=== PATIENT | male | born 1960 | race Caucasian/White ===

== ENCOUNTER 2016-07-12 15:30 | Inpatient (IN) | payer OTHER ==
[~2016-07-12] VITALS: Ht 177.8 cm; Wt 67.5 kg
[2016-07-12] MEDS ORDERED: ALBUT/IPRATROP 3MG/0.5MG NEB 3 ML VIAL INH STA (15:46)
[2016-07-12] MEDS ORDERED: SODIUM CHLORIDE 0.9% 1000ML 1,000 ML IV ONE (15:46)
--- NOTE | 2016-07-12 16:02 | EMERGENCY ROOM VISIT NOTE ---
History Report prepared by Duy: Nila Leger Under the Supervision of: Dr. Aime Felder D.O. First contact with patient: 15:37 Chief Complaint: SHORTNESS OF BREATH Stated Complaint: SOB History of Present Illness The patient is a 56 year old male who presents to the Emergency Room with complaints of worsening SOB starting couple weeks ago. His SOB has worsened this week. He states that he feels healthy, but has difficulty breathing all the way in or out. He has never experienced this before. He reports spasms in his chest and SOB when he lays back or walks. He has a cough which is productive at times. He denies any hemoptysis. He denies any history of smoking. He denies any history of PE, DVT, or TB. He has a history of diabetes. Pt denies any previous surgeries. Source of History: patient Onset: couple weeks ago Position: other (global) Quality: other (SOB) Timing: worsening Associated Symptoms: + chest pain, + cough Note: Pt denies hemoptysis. Review of Systems See HPI for pertinent positives & negatives. A total of 10 systems reviewed and were otherwise negative. Past Medical & Surgical Medical Problems: (1) CHF (congestive heart failure) (2) Diabetes Family History No pertinent family history stated. 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) Current/Historical Medications Scheduled Acetaminophen Tab (Tylenol), 650 MG PO TID Diphenhydramine Hcl (Sleep) (Diphenhydramine Hcl), 1 TAB PO HS Doxepin (Sinequan), 50 MG PO HS Glipizide (Glucotrol), 5 MG PO BID Metformin Hcl (Glucophage), 1,000 MG PO BID Multivitamins/Minerals (Mvi With Minerals), 1 TAB PO DAILY Polyethylene Glycol 3350 (Miralax), 1 TBS PO BID Senna (Senokot), 2 TAB PO BID Spironolactone (Aldactone), 2 TABS PO BID Vitamin E (E-400), 400 UNITS PO DAILY Allergies Coded Allergies: No Known Allergies (Unverified , 07/12/16) Physical Exam Vital Signs Date Time Temp Pulse Resp B/P Pulse Ox O2 Delivery O2 Flow Rate FiO2 07/12/16 20:01 121/83 07/12/16 19:45 128 25 07/12/16 19:31 135/96 07/12/16 19:15 126 21 07/12/16 19:01 131/83 07/12/16 18:45 129 22 07/12/16 18:40 129 31 07/12/16 18:31 152/101 07/12/16 18:10 128 29 07/12/16 18:01 116/66 07/12/16 17:40 129 26 07/12/16 17:35 131 23 122/78 94 07/12/16 17:30 133 33 07/12/16 17:25 131 29 07/12/16 17:20 129 30 07/12/16 17:15 129 30 07/12/16 17:10 138 37 07/12/16 17:05 130 31 07/12/16 17:00 128 35 07/12/16 16:55 124 18 07/12/16 16:51 126 07/12/16 16:50 126 26 07/12/16 16:31 139/94 07/12/16 15:46 92 Room Air 07/12/16 15:46 93 Room Air 07/12/16 15:41 36.8 128 20 127/97 92 Room Air Physical Exam GENERAL: Patient is awake, alert, and in no acute distress. Patient is resting comfortably and showing no signs of anxiety EYES: The conjunctivae are clear. The pupils are round and reactive. EARS, NOSE, MOUTH AND THROAT: The nose is without any evidence of any deformity. Mucous membranes are moist tongue is midline NECK: The neck is nontender and supple. RESPIRATORY: Diminished at the right base, rales noted at the right base. Mild tachypnea appreciated, no conversational dyspnea noted. CARDIOVASCULAR: Tachycardic rate, but regular rhythm, no definite murmurs noted to auscultation. GASTROINTESTINAL: The abdomen is soft. Bowel sounds are present in all quadrants. Abdomen is nontender MUSCULOSKELETAL/EXTREMITIES: There is no evidence of gross deformity full range of motion is noted in the hips and shoulders SKIN: There is no obvious evidence of any rash. There are no petechiae, pallor or cyanosis noted. NEUROLOGIC: Patient is awake alert and oriented x3 Medical Decision & Procedures ER Provider Diagnostic Interpretation: X-ray results as stated below per interpretation by me and the radiologist. CHEST ONE VIEW PORTABLE CLINICAL HISTORY: Sepsis. Shortness of breath. COMPARISON STUDY: No previous studies for comparison. FINDINGS: There is no pneumothorax. There are small bilateral pleural effusions with associated bibasilar opacities. There is pulmonary vascular congestion with interstitial thickening consistent with pulmonary edema. Moderate cardiomegaly is noted. IMPRESSION: Cardiomegaly with pulmonary edema with small bilateral pleural effusions and bibasilar opacities which likely reflect atelectasis. Electronically signed by: Ash Robbins M.D. 07/12/2016 4:58 PM Dictated Date/Time: 07/12/2016 4:57 PM Laboratory Results 07/12/16 16:45 Red Blood Count 5.91, Mean Corpuscular Volume 78.3, Mean Corpuscular Hemoglobin 26.1, Mean Corpuscular Hemoglobin Concent 33.3, Mean Platelet Volume 10.7 07/12/16 16:45 Test 07/12/16 00:00 07/12/16 16:45 07/12/16 18:45 Urine Color ORANGE Urine Appearance TURBID (CLEAR) Urine pH 5.5 (4.5-7.5) Urine Specific [place] 1.008 (1.000-1.030) Urine Protein NEG (NEG) Urine Glucose (UA) 2+ (NEG) Urine Ketones NEG (NEG) Urine Occult Blood 3+ (NEG) Urine Nitrite NEG (NEG) Urine Bilirubin NEG (NEG) Urine Urobilinogen NEG (NEG) Urine Leukocyte Esterase NEG (NEG) Urine WBC (Auto) /hpf (0-5) Urine RBC (Auto) /hpf (0-4) Urine Hyaline Casts (Auto) /lpf (0-5) Urine Epithelial Cells (Auto) /lpf (0-5) Urine Bacteria (Auto) (NEG) Urine RBC 5-10 /hpf (0-4) Urine WBC 5-10 /hpf (0-5) Urine Epithelial Cells 5-10 /lpf (0-5) Urine Bacteria NEG (NEG) Urine Yeast (Auto) (NONE PRSENT) White Blood Count 45.40 K/uL (4.8-10.8) Red Blood Count 5.91 M/uL (4.7-6.1) Hemoglobin 15.4 g/dL (14.0-18.0) Hematocrit 46.3 % (42-52) Mean Corpuscular Volume 78.3 fL (80-100) Mean Corpuscular Hemoglobin 26.1 pg (25-34) Mean Corpuscular Hemoglobin Concent 33.3 g/dl (32-36) Platelet Count 212 K/uL (130-400) Mean Platelet Volume 10.7 fL (7.4-10.4) RDW Standard Deviation 38.3 fL (36.4-46.3) RDW Coefficient of Variation 13.7 % (11.5-14.5) Neutrophils % (Manual) 8.5 % Lymphocytes % (Manual) 89.7 % Monocytes % (Manual) 0.9 % Basophils % (Manual) 0.9 % (0-2) Neutrophils # (Manual) 3.86 K/uL (1.4-6.5) Total Absolute Neutrophils 3.86 K/uL (1.4-6.5) Lymphocytes # (Manual) 40.72 K/uL (1.2-3.4) Total Absolute Lymphocytes 40.72 K/uL (1.2-3.4) Monocytes # (Manual) 0.41 K/uL (0.11-0.59) Basophils # (Manual) 0.41 K/uL (0-0.2) Smudge Cells PRESENT Erythrocyte Sedimentation Rate 2 mm/hr (0-14) Prothrombin Time 11.5 SECONDS (9.0-12.0) Prothromb Time International Ratio 1.1 (0.9-1.1) Activated Partial Thromboplast Time 28.8 SECONDS (21.0-31.0) Partial Thromboplastin Ratio 1.1 Venous Blood pH 7.44 (7.36-7.41) Venous Blood Partial Pressure CO2 36 mmHg (38.0-50.0) Venous Blood Partial Pressure O2 51 mmHg Venous Blood HCO3 24 meq/L Venous Blood Oxygen Saturation 85.4 % Venous Blood Base Excess 0.4 mmol/L Anion Gap 9.0 mmol/L (3-11) Est Creatinine Clear Calc Drug Dose 99.0 ml/min Estimated GFR () 111.9 Estimated GFR (Non- 96.5 BUN/Creatinine Ratio 8.5 (10-20) Calcium Level 8.0 mg/dl (8.5-10.1) Magnesium Level 1.8 mg/dl (1.8-2.4) Total Bilirubin 1.2 mg/dl (0.2-1) Aspartate Amino Transf (AST/SGOT) 22 U/L (15-37) Alanine Aminotransferase (ALT/SGPT) 26 U/L (12-78) Alkaline Phosphatase 87 U/L (45-117) Total Creatine Kinase 51 U/L (39-308) Creatine Kinase MB 1.7 ng/ml (0.5-3.6) Creatine Kinase MB Ratio 3.3 (0-3.0) C-Reactive Protein < 0.29 mg/dl (0-0.29) Pro-B-Type Natriuretic Peptide 2051 pg/ml (0-900) Total Protein 6.1 gm/dl (6.4-8.2) Albumin 3.3 gm/dl (3.4-5.0) Globulin 2.8 gm/dl (2.5-4.0) Albumin/Globulin Ratio 1.2 (0.9-2) Lactic Acid Level 2.6 mmol/L (0.4-2.0) Laboratory results per my review. Medications Administered Medications (Trade) Dose Ordered Sig/Jessica Route Start Time Stop Time Status Last Admin Dose Admin Sodium Chloride (Nss 1000ml) 1,000 ml @ 999 mls/hr Q1H1M ONCE IV 07/12/16 15:46 07/12/16 17:13 DC 07/12/16 15:46 999 MLS/HR Albuterol/ Ipratropium (Duoneb) 3 ml NOW STAT INH 07/12/16 15:46 07/12/16 15:47 DC 07/12/16 15:46 3 ML Furosemide (Lasix Inj) 40 mg NOW STAT IV 07/12/16 18:12 07/12/16 18:13 DC 07/12/16 18:42 40 MG ECG Indication: SOB/dyspnea Rate (beats per minute): 131 Rhythm: sinus tachycardia Findings: no ectopy, other (diffuse ST segment abnormality noted) Comparison ECG Date: no prior available ED Course 1543: The patient was evaluated in room C7. A complete history and physical examination were performed. 1546: Duoneb 3 ml INH, NSS 1000 ml @ 999 mls/hr IV. 181: Furosemide 40 mg IV. 8: Upon reevaluation, the patient is resting comfortably. I discussed results and treatment plan with him. He verbalizes agreement and understanding. The patient will be evaluated for further management and care. 1917: I discussed the patient's case with Dr. Cai, [facility] [place]. The patient will be evaluated for further management. Medical Decision Prior records/ancillary studies reviewed. Triage Nursing notes reviewed. The patient's history was concerning for respiratory difficulties. Differential diagnosis: Etiologies such as infections, reactive airway disease, pneumonia, pneumothorax , COPD, CHF, cardiac ischemia, pulmonary embolism, musculoskeletal, gastrointestinal, as well as others were entertained. The patient is a 56-year-old male who presented to the emergency department from the senior care for an evaluation of cough orthopnea and shortness of breath. The patient's EKG was abnormal and he was found have signs of pulmonary edema on chest x-ray as well as laboratory studies. I discussed patient's laboratory and radiographic studies with him. Initially I thought his presentation was consistent with pneumonia and he was treated with a small fluid bolus. He was then treated with Lasix. I discussed his case with the on-call [facility] hospitalist group. They have agreed to evaluate the patient in the emergency department for further management and disposition. Consults Time Called: 1909 Consulting Physician: Dr. Cai [facility] [place] medicine Returned Call: 1917 I discussed the patient's case with him. The patient will be evaluated for further management. Impression Primary Impression: Pulmonary edema Additional Impressions: SOB (shortness of breath) Orthopnea Scribe Attestation The scribe's documentation has been prepared under my direction and personally reviewed by me in its entirety. I confirm that the note above accurately reflects all work, treatment, procedures, and medical decision making performed by me. Departure Information Dispostion Being Evaluated By Hospitalist Patient Instructions My [facility] Problem Qualifiers Primary Impression: Pulmonary edema Chronicity: acute Qualified Codes: J81.0 - Acute pulmonary edema
[2016-07-12] MEDS ORDERED: ACET325T96 PO (16:19)
[2016-07-12] MEDS ORDERED: SENN-61 PO (16:19)
[2016-07-12] MEDS ORDERED: DOXE50CA3 PO (16:19)
[2016-07-12] MEDS ORDERED: DIPH50TA10 PO (16:19)
[2016-07-12] MEDS ORDERED: METF-384 PO (16:19)
[2016-07-12] MEDS ORDERED: GLIP5TAB3 PO (16:19)
[2016-07-12] MEDS ORDERED: POLY335019 PO (16:19)
[2016-07-12] MEDS ORDERED: MULTTAB PO (16:19)
[2016-07-12] MEDS ORDERED: VITACAP37 PO (16:19)
[2016-07-12] MEDS ORDERED: SPIR25TA PO (16:19)
--- NOTE | 2016-07-12 16:59 | DIAGNOSTIC IMAGING REPORT ---
CHEST ONE VIEW PORTABLE CLINICAL HISTORY: Sepsis. Shortness of breath. COMPARISON STUDY: No previous studies for comparison. FINDINGS: There is no pneumothorax. There are small bilateral pleural effusions with associated bibasilar opacities. There is pulmonary vascular congestion with interstitial thickening consistent with pulmonary edema. Moderate cardiomegaly is noted. IMPRESSION: Cardiomegaly with pulmonary edema with small bilateral pleural effusions and bibasilar opacities which likely reflect atelectasis. Electronically signed by: Ash Robbins M.D. 07/12/2016 4:58 PM Dictated Date/Time: 07/12/2016 4:57 PM
[2016-07-12 17:02] LABS: VEN BLD GAS O2 SATURATION 85.4 %; VEN BLOOD GAS BASE EXCESS 0.4 mmol/L; VENOUS BLOOD GAS PCO2 36 mmHg (38.0-50.0); VENOUS BLOOD GAS PO2 51 mmHg
[2016-07-12 17:13] LABS: INR 1.1 (0.9-1.1); PARTIAL THROMBOPLASTIN RATIO 1.1; PROTHROMBIN TIME (PATIENT) 11.5 SECONDS (9.0-12.0)
[2016-07-12 17:28] LABS: ALT/SGPT 26 U/L (12-78); AST/SGOT 22 U/L (15-37); BLOOD UREA NITROGEN 7 mg/dl (7-18); BUN/CREATININE RATIO 8.5 (10-20); CARBON DIOXIDE 22 mmol/L (21-32); CHLORIDE 103 mmol/L (98-107); CREATININE 0.84 mg/dl (0.60-1.40); GLUCOSE 209 mg/dl (70-99); MAGNESIUM 1.8 mg/dl (1.8-2.4); POTASSIUM 4.8 mmol/L (3.5-5.1); SODIUM 134 mmol/L (136-145)
[2016-07-12 17:30] LABS: ALB/GLOB RATIO 1.2 (0.9-2); ALKALINE PHOSPHATASE 87 U/L (45-117); C-REACTIVE PROTEIN < 0.29 mg/dl (0-0.29); CKMB/CK RATIO 3.3 (0-3.0)
[2016-07-12 17:32] LABS: HEMATOCRIT 46.3 % (42-52); MEAN CELL VOLUME 78.3 fL (80-100); MEAN CORPUSCULAR HEMOGLOBIN 26.1 pg (25-34); MEAN CORPUSCULAR HGB CONC 33.3 g/dl (32-36); MEAN PLATELET VOLUME 10.7 fL (7.4-10.4); PLATELET COUNT 212 K/uL (130-400); RED BLOOD COUNT 5.91 M/uL (4.7-6.1)
[2016-07-12 18:09] LABS: BASO ABS # 0.41 K/uL (0-0.2); BASOPHIL % 0.9 % (0-2); LYMPH ABS # 40.72 K/uL (1.2-3.4); LYMPHOCYTE % 89.7 %; NEUTROPHILS % 8.5 %; SMUDGE CELLS PRESENT
[2016-07-12] MEDS ORDERED: FUROSEMIDE 40 MG/4 ML VIAL IV STA (18:12)
[2016-07-12 19:39] LABS: URINE APPEARANCE TURBID (CLEAR); URINE BILIRUBIN NEG (NEG); URINE COLOR ORANGE; URINE NITRITE NEG (NEG); URINE PH 5.5 (4.5-7.5); URINE SPECIFIC GRAVITY 1.008 (1.000-1.030); UROBILINOGEN NEG (NEG); ZZUR CULT IF INDIC CLEAN CATCH YES
[2016-07-12 19:53] LABS: MANUAL MICROSCOPIC REQUIRED? YES; REVIEW REQ? NO
--- NOTE | 2016-07-12 20:04 | History and Physical ---
History & Physical Date & Time of Service: July 12, 2016 at 19:30 Chief Complaint: SOB Primary Care Physician: Katie SPEAR History of Present Illness Source: patient 56 y/o M Hx HTN, DM, likely chronic leukemia. Presents from the local [facility] with progressive SOB and cough. States that he can barely walk a few paces without significant SOB. He is uncomfortable lying flat. He denies CP, N/V, fevers. Initial imaging and labs are consistent with new onset CHF. He denies a previous history of cardiovascular disease however it is noted that he takes daily Aldactone. 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) Allergies Coded Allergies: No Known Allergies (Unverified , 07/12/16) Home Medications Scheduled Acetaminophen Tab (Tylenol), 650 MG PO TID Diphenhydramine Hcl (Sleep) (Diphenhydramine Hcl), 1 TAB PO HS Doxepin (Sinequan), 50 MG PO HS Glipizide (Glucotrol), 5 MG PO BID Metformin Hcl (Glucophage), 1,000 MG PO BID Multivitamins/Minerals (Mvi With Minerals), 1 TAB PO DAILY Polyethylene Glycol 3350 (Miralax), 1 TBS PO BID Senna (Senokot), 2 TAB PO BID Spironolactone (Aldactone), 2 TABS PO BID Vitamin E (E-400), 400 UNITS PO DAILY Review of Systems Constitutional: No chills, No fever, No sweats Eyes: No eye pain, No worsening of vision ENT: No hearing loss, No nasal symptoms Respiratory: + cough, + dyspnea at rest, + dyspnea on exertion, + shortness of breath, + sputum, No wheezing Cardiovascular: + orthopnea, No chest pain, No claudication, No edema Abdomen: No nausea, No pain, No vomiting Musculoskeletal: No joint pain, No muscle pain Genitourinary - Male: No dysuria, No hematuria, No urinary frequency Neurologic: + weakness, No memory loss, No paralysis Psychiatric: No depression symptoms Endocrine: + fatigue Hematologic / Lymphatic: No abnormal bleeding/bruising Integumentary: No rash Allergic / Immunologic: No environmental allergies Physical Exam Vital Signs Date Time Temp Pulse Resp B/P Pulse Ox O2 Delivery O2 Flow Rate FiO2 07/12/16 18:40 129 31 07/12/16 18:31 152/101 07/12/16 18:10 128 29 07/12/16 18:01 116/66 07/12/16 17:40 129 26 07/12/16 17:35 131 23 122/78 94 07/12/16 17:30 133 33 07/12/16 17:25 131 29 07/12/16 17:20 129 30 07/12/16 17:15 129 30 07/12/16 17:10 138 37 07/12/16 17:05 130 31 07/12/16 17:00 128 35 07/12/16 16:55 124 18 07/12/16 16:51 126 07/12/16 16:50 126 26 07/12/16 16:31 139/94 07/12/16 15:46 92 Room Air 07/12/16 15:46 93 Room Air 07/12/16 15:41 36.8 128 20 127/97 92 Room Air General Appearance: WD/WN, no apparent distress Head: normocephalic Eyes: normal inspection ENT: normal ENT inspection, pharynx normal Neck: supple, no JVD Respiratory/Chest: chest non-tender, lungs clear, normal breath sounds Cardiovascular: regular rate, rhythm, no murmur, normal peripheral pulses, + JVD, + gallop/S3 Abdomen/GI: normal bowel sounds, non tender Back: normal inspection, no CVA tenderness Extremities/Musculoskelatal: normal inspection, no calf tenderness, normal capillary refill, no pedal edema, normal range of motion 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 tested, no motor/sensory deficits, alert, oriented x 3 Skin: normal color, warm/dry, no rash Diagnostics Laboratory Results Results Past 24 Hours Test 07/12/16 00:00 07/12/16 16:45 07/12/16 18:45 Range/Units White Blood Count 45.40 4.8-10.8 K/uL Red Blood Count 5.91 4.7-6.1 M/uL Hemoglobin 15.4 14.0-18.0 g/dL Hematocrit 46.3 42-52 % Mean Corpuscular Volume 78.3 80-100 fL Mean Corpuscular Hemoglobin 26.1 25-34 pg Mean Corpuscular Hemoglobin Concent 33.3 32-36 g/dl Platelet Count 212 130-400 K/uL Mean Platelet Volume 10.7 7.4-10.4 fL RDW Standard Deviation 38.3 36.4-46.3 fL RDW Coefficient of Variation 13.7 11.5-14.5 % Neutrophils % (Manual) 8.5 % Lymphocytes % (Manual) 89.7 % Monocytes % (Manual) 0.9 % Basophils % (Manual) 0.9 0-2 % Neutrophils # (Manual) 3.86 1.4-6.5 K/uL Total Absolute Neutrophils 3.86 1.4-6.5 K/uL Lymphocytes # (Manual) 40.72 1.2-3.4 K/uL Total Absolute Lymphocytes 40.72 1.2-3.4 K/uL Monocytes # (Manual) 0.41 0.11-0.59 K/uL Basophils # (Manual) 0.41 0-0.2 K/uL Smudge Cells PRESENT Erythrocyte Sedimentation Rate 2 0-14 mm/hr Prothrombin Time 11.5 9.0-12.0 SECONDS Prothromb Time International Ratio 1.1 0.9-1.1 Activated Partial Thromboplast Time 28.8 21.0-31.0 SECONDS Partial Thromboplastin Ratio 1.1 Venous Blood pH 7.44 7.36-7.41 Venous Blood Partial Pressure CO2 36 38.0-50.0 mmHg Venous Blood Partial Pressure O2 51 mmHg Venous Blood HCO3 24 meq/L Venous Blood Oxygen Saturation 85.4 % Venous Blood Base Excess 0.4 mmol/L Sodium Level 134 136-145 mmol/L Potassium Level 4.8 3.5-5.1 mmol/L Chloride Level 103 98-107 mmol/L Carbon Dioxide Level 22 21-32 mmol/L Anion Gap 9.0 3-11 mmol/L Blood Urea Nitrogen 7 7-18 mg/dl Creatinine 0.84 0.60-1.40 mg/dl Est Creatinine Clear Calc Drug Dose 99.0 ml/min Estimated GFR () 111.9 Estimated GFR (Non- 96.5 BUN/Creatinine Ratio 8.5 10-20 Random Glucose 209 70-99 mg/dl Calcium Level 8.0 8.5-10.1 mg/dl Magnesium Level 1.8 1.8-2.4 mg/dl Total Bilirubin 1.2 0.2-1 mg/dl Aspartate Amino Transf (AST/SGOT) 22 15-37 U/L Alanine Aminotransferase (ALT/SGPT) 26 12-78 U/L Alkaline Phosphatase 87 45-117 U/L Total Creatine Kinase 51 39-308 U/L Creatine Kinase MB 1.7 0.5-3.6 ng/ml Creatine Kinase MB Ratio 3.3 0-3.0 Troponin I 0.020 0-0.045 ng/ml C-Reactive Protein < 0.29 0-0.29 mg/dl Pro-B-Type Natriuretic Peptide 2051 0-900 pg/ml Total Protein 6.1 6.4-8.2 gm/dl Albumin 3.3 3.4-5.0 gm/dl Globulin 2.8 2.5-4.0 gm/dl Albumin/Globulin Ratio 1.2 0.9-2 Microbiology Results 07/12/16 Blood Culture, Received Pending 07/12/16 Blood Culture, Received Pending Diagnostic Radiology There is no pneumothorax. There are small bilateral pleural effusions with associated bibasilar opacities. There is pulmonary vascular congestion with interstitial thickening consistent with pulmonary edema. Moderate cardiomegaly is noted. 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 Presents from the local [facility] with progressive SOB and cough. States that he can barely walk a few paces without significant SOB. He is uncomfortable lying flat. He denies CP, N/V, fevers. Initial imaging and labs are consistent with new onset CHF. He denies a previous history of cardiovascular disease however it is noted that he takes daily Aldactone. 1) CHF - new onset - pt will be diuresed - daily weights, Is/Os - cardiology consulted We will rule out an acte event with serial enzymes an have started the pt on a Statin and ASA - will start a low dose B rafael in AM 2) Leukocytosis - [facility] records do ian specify any detail reg his high count - likely CML or CLL - if stable can w/u as outpt 3) DM - placed on SS 4) Psychotic disorder - will remain on home meds Ful code - Heparin prophylaxis Total time for this admit including review of labs, meds, EKG - discussion with pt and ER attending - 38 min Level of Care Telemetry Resuscitation Status FULL RESUSCITATION VTE Prophylaxis Given or contraindicated: Unfractionated heparin SQ
[2016-07-12 20:14] LABS: URINE BACTERIA NEG (NEG)
[2016-07-12] MEDS ORDERED: ALUMINUM/MAGNESIUM/SIMETH (MAALOX MAX) 30 ML UDC PO PRN (20:15)
[2016-07-12] MEDS ORDERED: MoRPHine SULFATE 2 MG/ML CARP IV PRN (20:15)
[2016-07-12] MEDS ORDERED: MAGNESIUM HYDROXIDE SUSP 30 ML UDC PO PRN (20:15)
[2016-07-12] MEDS ORDERED: NITROGLYCERIN 0.4 MG SL PER TAB CHARGE SL PRN (20:15)
[2016-07-12] MEDS ORDERED: ONDANSETRON INJ 2 MG/ML 2 ML VIAL IV PRN (20:15)
[2016-07-12] MEDS ORDERED: POLYETHYLENE (MIRALAX) 17 GM PACK PO PRN (20:15)
[2016-07-12] MEDS ORDERED: ACETAMINOPHEN 325 MG TAB PO PRN (20:15)
[2016-07-12 21:36] VITALS: BP 135/93; PULSE 128; TEMP 36.8; O2SAT 96; BMI 21.9
[2016-07-12] MEDS ORDERED: DEXTROSE 50% 50 ML SYR IV PRN (21:45)
[2016-07-12] MEDS ORDERED: GLUCOSE 40% GEL 15 GM TUBE PO PRN (21:45)
[2016-07-12] MEDS ORDERED: GLUCOSE 10 TABS/TUBE PO PRN (21:45)
[2016-07-12] MEDS ORDERED: GLUCAGON FOR INJ 1 MG VIAL SQ PRN (21:45)
[2016-07-12] MEDS: SPIRONOLACTONE 25 MG TAB PO SCH (22:38)
[2016-07-12] MEDS: SENNA 8.6 MG TAB PO SCH (22:39)
[2016-07-12] MEDS: POTASSIUM CHLORIDE 20 MEQ TABCR PO SCH (22:39)
[2016-07-12] MEDS: NITROGLYCERIN OINT 2% 1GM PACKET EXT SCH (22:40)
[2016-07-12] MEDS: FUROSEMIDE INJ 40 MG in SYRINGE 0 ML IV SCH (22:41)
[2016-07-12] MEDS: POLYETHYLENE (MIRALAX) 17 GM PACK PO SCH (22:42)
[2016-07-12] MEDS: INSULIN ASPART 100 UNITS/ML 3 ML PEN SC SCH (22:46)
[2016-07-12] MEDS: HEPARIN SOD 5000 UNIT/0.5 ML CARP SQ SCH (22:47)
[2016-07-12 23:42] VITALS: BP 143/93; PULSE 122; TEMP 36.9; O2SAT 96
[2016-07-12] MEDS ORDERED: LORAZEPAM 1 MG TAB PO STA (23:54)
[2016-07-13] VITALS (8 sets, daily range): BP systolic 95–107; BP diastolic 58–73; PULSE 101–114; TEMP 36.6–37; O2SAT 89–97
[2016-07-13] MEDS: DOXEPIN HCL 50 MG CAP PO SCH ×2 (00:13→21:05)
[2016-07-13] MEDS: METOPROLOL TARTRATE 25 MG TAB PO SCH ×3 (00:52→21:06)
[2016-07-13] MEDS: NITROGLYCERIN OINT 2% 1GM PACKET EXT SCH ×4 (04:17→21:07)
[2016-07-13] MEDS: HEPARIN SOD 5000 UNIT/0.5 ML CARP SQ SCH ×3 (05:34→21:15)
[2016-07-13 07:16] LABS: BUN/CREATININE RATIO 13.6 (10-20); CALCIUM 8.5 mg/dl (8.5-10.1); CHOLESTEROL/HDL RATIO 2.6; CREATININE 0.84 mg/dl (0.60-1.40); MAGNESIUM 2.1 mg/dl (1.8-2.4); POTASSIUM 3.8 mmol/L (3.5-5.1)
[2016-07-13] MEDS: FUROSEMIDE INJ 40 MG in SYRINGE 0 ML IV SCH ×2 (08:54→17:03)
[2016-07-13] MEDS: SPIRONOLACTONE 25 MG TAB PO SCH ×2 (08:54→21:05)
[2016-07-13] MEDS: POTASSIUM CHLORIDE 20 MEQ TABCR PO SCH ×2 (08:54→21:05)
[2016-07-13] MEDS: ATORVASTATIN 20 MG TAB PO SCH (08:55)
[2016-07-13] MEDS: ASPIRIN 81 MG ECTAB PO SCH ×2 (08:55→09:56)
[2016-07-13] MEDS: POLYETHYLENE (MIRALAX) 17 GM PACK PO SCH ×2 (08:55→21:07)
[2016-07-13] MEDS: SENNA 8.6 MG TAB PO SCH ×2 (08:55→21:05)
[2016-07-13] MEDS: INSULIN ASPART 100 UNITS/ML 3 ML PEN SC SCH ×4 (08:57→21:14)
--- NOTE | 2016-07-13 11:11 | Hospitalist Progress Note ---
Hospitalist Progress Note Date of Service July 13, 2016. (Zohaib Mckinney, ZOFIA) Subjective Pt evaluation today including: conversation w/ patient, physical exam, lab review, review of studies, review of inpatient medication list Pain: c/o occassional abdominal pain, not associated with food intake PO Intake: tolerating PO Voiding: no voiding problems still feels short of breath no chest pain no nausea/vomiting Constitutional: No chills, No fatigue, No fever, No problem reported, No see HPI, No sweats, No weakness, No weight loss ENT: No dental problems, No hearing loss, No nasal symptoms, No problem reported, No see HPI, No sore throat, No tinnitus, No trouble swallowing, No unusual epistaxis Respiratory: + dyspnea on exertion, + shortness of breath, + wheezing Cardiovascular: No PND, No chest pain, No claudication, No edema, No orthopnea, No palpitations, No problem reported, No see HPI Abdomen: + problem reported (bloating at times) Musculoskeletal: No calf pain, No joint pain, No muscle pain, No problem reported, No see HPI, No swelling Neurologic: No balance problems, No memory loss, No numbness/tingling, No paralysis, No problem reported, No see HPI, No vertigo, No weakness Psychiatric: No anhedonism, No anxiety, No depression symptoms, No insomnia , No problem reported, No see HPI, No substance abuse Heme: No abnormal bleeding/bruising, No clotting problems, No night sweats, No problem reported, No see HPI, No swollen lymph nodes Endo: No excessive thirst, No excessive urination, No fatigue, No problem reported, No see HPI Skin: No bleeding, No color change, No itch, No new/changing skin lesions, No problem reported, No rash, No see HPI (Zohaib Mckinney, ZOFIA) Medications reviewed (Zohaib Mckinney, ZOFIA) Objective Vital Signs Date Time Temp Pulse Resp B/P Pulse Ox O2 Delivery O2 Flow Rate FiO2 07/13/16 04:40 36.7 103 18 95/58 89 Room Air 07/13/16 04:00 96 Room Air 2.0 07/13/16 00:01 96 Room Air 2.0 07/12/16 23:42 36.9 122 18 143/93 96 Room Air 07/12/16 21:36 36.8 128 24 135/93 96 Room Air 07/12/16 20:27 37.0 07/12/16 20:15 127 26 07/12/16 20:01 121/83 07/12/16 19:45 128 25 07/12/16 19:31 135/96 07/12/16 19:15 126 21 07/12/16 19:01 131/83 07/12/16 18:45 129 22 07/12/16 18:40 129 31 07/12/16 18:31 152/101 07/12/16 18:10 128 29 07/12/16 18:01 116/66 07/12/16 17:40 129 26 07/12/16 17:35 131 23 122/78 94 07/12/16 17:30 133 33 07/12/16 17:25 131 29 07/12/16 17:20 129 30 07/12/16 17:15 129 30 07/12/16 17:10 138 37 07/12/16 17:05 130 31 07/12/16 17:00 128 35 07/12/16 16:55 124 18 07/12/16 16:51 126 07/12/16 16:50 126 26 07/12/16 16:31 139/94 07/12/16 15:46 92 Room Air 07/12/16 15:46 93 Room Air 07/12/16 15:41 36.8 128 20 127/97 92 Room Air (Zohaib Mckinney ., [employer]) Physical Exam General Appearance: no apparent distress Eyes: PERRL, sclerae normal ENT: hearing grossly normal, pharynx normal Neck: supple, no JVD Respiratory/Chest: chest non-tender, + wheezing Cardiovascular: regular rate, rhythm, no edema, no JVD, no murmur Abdomen: normal bowel sounds, non tender, soft Extremities: normal range of motion, normal inspection, no pedal edema Neurologic/Psychiatric: alert, oriented x 3 Skin: normal color, warm/dry, no rash (Zohaib Mckinney ., [employer]) Laboratory Results Last 24 Hours Test 07/12/16 16:45 07/12/16 18:45 07/12/16 22:21 07/12/16 23:05 White Blood Count 45.40 K/uL Red Blood Count 5.91 M/uL Hemoglobin 15.4 g/dL Hematocrit 46.3 % Mean Corpuscular Volume 78.3 fL Mean Corpuscular Hemoglobin 26.1 pg Mean Corpuscular Hemoglobin Concent 33.3 g/dl Platelet Count 212 K/uL Mean Platelet Volume 10.7 fL RDW Standard Deviation 38.3 fL RDW Coefficient of Variation 13.7 % Neutrophils % (Manual) 8.5 % Lymphocytes % (Manual) 89.7 % Monocytes % (Manual) 0.9 % Basophils % (Manual) 0.9 % Neutrophils # (Manual) 3.86 K/uL Total Absolute Neutrophils 3.86 K/uL Lymphocytes # (Manual) 40.72 K/uL Total Absolute Lymphocytes 40.72 K/uL Monocytes # (Manual) 0.41 K/uL Basophils # (Manual) 0.41 K/uL Smudge Cells PRESENT Erythrocyte Sedimentation Rate 2 mm/hr Prothrombin Time 11.5 SECONDS Prothromb Time International Ratio 1.1 Activated Partial Thromboplast Time 28.8 SECONDS Partial Thromboplastin Ratio 1.1 Venous Blood pH 7.44 Venous Blood Partial Pressure CO2 36 mmHg Venous Blood Partial Pressure O2 51 mmHg Venous Blood HCO3 24 meq/L Venous Blood Oxygen Saturation 85.4 % Venous Blood Base Excess 0.4 mmol/L Sodium Level 134 mmol/L Potassium Level 4.8 mmol/L Chloride Level 103 mmol/L Carbon Dioxide Level 22 mmol/L Anion Gap 9.0 mmol/L Blood Urea Nitrogen 7 mg/dl Creatinine 0.84 mg/dl Est Creatinine Clear Calc Drug Dose 99.0 ml/min Estimated GFR () 111.9 Estimated GFR (Non- 96.5 BUN/Creatinine Ratio 8.5 Random Glucose 209 mg/dl Calcium Level 8.0 mg/dl Magnesium Level 1.8 mg/dl Total Bilirubin 1.2 mg/dl Aspartate Amino Transf (AST/SGOT) 22 U/L Alanine Aminotransferase (ALT/SGPT) 26 U/L Alkaline Phosphatase 87 U/L Total Creatine Kinase 51 U/L Creatine Kinase MB 1.7 ng/ml Creatine Kinase MB Ratio 3.3 Troponin I 0.020 ng/ml 0.022 ng/ml C-Reactive Protein < 0.29 mg/dl Pro-B-Type Natriuretic Peptide 2051 pg/ml Total Protein 6.1 gm/dl Albumin 3.3 gm/dl Globulin 2.8 gm/dl Albumin/Globulin Ratio 1.2 Lactic Acid Level 2.6 mmol/L Bedside Glucose 195 mg/dl Test 07/13/16 05:05 07/13/16 06:34 Sodium Level 140 mmol/L Potassium Level 3.8 mmol/L Chloride Level 104 mmol/L Carbon Dioxide Level 29 mmol/L Anion Gap 7.0 mmol/L Creatinine 0.84 mg/dl Est Creatinine Clear Calc Drug Dose 92.3 ml/min Estimated GFR () 111.9 Estimated GFR (Non- 96.5 BUN/Creatinine Ratio 13.6 Random Glucose 255 mg/dl Calcium Level 8.5 mg/dl Magnesium Level 2.1 mg/dl Troponin I 0.020 ng/ml Triglycerides Level 89 mg/dl Cholesterol Level 103 mg/dl HDL Cholesterol 39 mg/dl LDL Cholesterol, Calculated 46 mg/dl VLDL Cholesterol, Calculated 18 mg/dl Cholesterol/HDL Ratio 2.6 Bedside Glucose 224 mg/dl (Zohaib Mckinney, ZOFIA) Assessment and Plan 56 y/o Male with history of HTN, DM, likely chronic leukemia. Presents from the local [facility] with progressive SOB and cough. States that he can barely walk a few paces without significant SOB. He is uncomfortable lying flat. He denies CP, N/V, fevers. Initial imaging and labs are consistent with new onset CHF. He denies a previous history of cardiovascular disease however it is noted that he takes daily Aldactone. 1. CHF - new onset - uncertain systolic vs diastolic - obtain ECHO. - Continue IV lasix- aldactone. daily weights, I/O - cardiology consulted - started metoprolol this am - trops normal x 3 - started on Statin and ASA on admission 2. Leukocytosis - Afebrile - WBC over 45k with over 40% lymphocytes - assisted records do not specify any detail reg his high count - likely CML or CLL - can likely w/u as outpt - check WBC in AM 3. DM - placed on SSI 4. Psychotic disorder - will remain on home meds 5. DVT prophylaxis - Heparin 6. Full Code 7. Disposition - likely 2 to 3 more days in hospital then return to [facility]. Continued [facility] stay due to: multiple IV medications needed Discharge planning[facility] (Zohaib Mckinney, ZOFIA) Attending Attestation: Chart reviewed in detail. I agree with the lacy components of ZOFIA Mckinney's documentation. Taye Velez MD (Taye Velez MD)
--- NOTE | 2016-07-13 16:55 | CARDIOLOGY CONSULTATION ---
DATE OF CONSULTATION: 07/13/2016 TIME: 1509 p.m. CONSULTING PHYSICIAN: Dr. Cai. REASON FOR CONSULTATION: CHF. HISTORY OF PRESENT ILLNESS: Mr. Francois is a 56-year-old gentleman with a reported history of leukemia, hypertension, diabetes and psychosis/delusional disorder who presented to [facility] from [facility] with shortness of breath. He states that for the past 2 weeks he has had progressively worsening shortness of breath, more specifically dyspnea with exertion. He can now walk only a few steps before experiencing dyspnea and having to stop. He states that he breathes "purse breathing" to help relieve his symptoms. He has orthopnea and basically could not sleep for the past few nights due to his breathing issues. While he is breathing heavily, he will develop some chest tightness, but otherwise does not have exertional chest tightness. Around the time of his shortness of breath he also noticed coughing episodes, especially while lying down or becoming short of breath. Occasionally, he will develop sethi sputum, but otherwise largely nonproductive. He denies syncope, palpitations, edema, melena, hematochezia, hematuria, or other bleeding. He denies stroke or stroke-like symptoms. He does have intermittent central abdominal pain after eating for the past 6 months or so. He was evaluated and admitted by Dr. Cai in the Emergency Department from the hospitalist service and started on a diuretic therapy in the form of Lasix 40 mg IV b.i.d. He has had urine output and has been negative approximately 3 liters and despite this states that he feels no improvement in his symptoms. REVIEW OF SYSTEMS: As above and otherwise unremarkable. PAST MEDICAL HISTORY: 1. Diabetes. 2. Leukemia and he states that he is followed by hematology every 6 months. He denies ever receiving chemotherapy. 3. Hypertension. 4. Psychosis/delusional disorder. HOME MEDICATIONS: Include metformin 1000 mg p.o. b.i.d., glipizide 5 mg b.i.d., spironolactone 2 tabs b.i.d. which he states was recently discontinued, doxepin 50 mg at bedtime, Benadryl 1 tab p.o. at bedtime, vitamin E. HOSPITAL MEDICATIONS: Include aspirin 81 mg daily, Lipitor 20 mg daily, Lasix 40 mg IV b.i.d., heparin 5000 units subQ q. 8 hours, metoprolol tartrate 25 mg p.o. b.i.d., potassium chloride 20 mEq p.o. b.i.d., spironolactone 50 mg p.o. b.i.d. ALLERGIES: HE STATES THAT HE IS ALLERGIC TO IV CONTRAST. He recalls receiving either Benadryl or epinephrine for the reaction. He does not recall the entire reaction. When asked about a rash, he states perhaps he had one, but is not sure. SOCIAL HISTORY: He has no children. He is originally from the [facility]. He smoked for approximately 2 years, but quit several years ago. No alcohol or drugs. He is currently incarcerated at [facility]. He has been incarcerated since 1998. FAMILY HISTORY: No known premature CAD. PHYSICAL EXAMINATION: VITAL SIGNS: Temperature 36.9 degrees, heart rate 103 beats per minute; however, his heart rate upon presentation was consistently in the 120s, respiration rate 17, blood pressure 97/68 mmHg. Oxygen saturation 96%. I's and O's negative 1.5 liters yesterday, charted as a negative 1.7 liters today. Weight is 68.1 kg. GENERAL: No acute distress. He is alert and oriented. HEENT: Anicteric sclerae. NECK: No appreciable JVD but there is hepatojugular reflux noted. No bruits. Normal carotid upstrokes bilaterally. CARDIAC EXAMINATION: PMI was nonpalpable. There was no ventricular heave. Regular, but tachycardic, normal S1, S2, no audible murmurs. There was an audible S3 gallop. No rubs. LUNGS: Bibasilar rales, left greater than right. There was also some wheezing in the left base. ABDOMEN: Soft, nondistended. There was some central abdominal tenderness, but no rebound tenderness. No palpable mass in that area. No bruits. EXTREMITIES: No cyanosis or edema. 2+ radial pulses bilaterally. 2+ dorsalis pedis pulses bilaterally. No palpable cords. PSYCHIATRIC: Affect appears appropriate. LABORATORY DATA: White blood cell count 45.4, hemoglobin 15.4, platelets 212, ESR 2. Sodium 140, potassium 3.8, BUN 11, creatinine 0.84, magnesium 2.1. Troponin peak 0.022, triglycerides 89, total cholesterol 103, LDL 46, HDL 39. INR 1.1. ECG personally reviewed from 07/12/2016 at 1703, sinus tachycardia 131 beats per minute. Inferior infarct. Anteroseptal infarct. Telemetry personally reviewed. Sinus rhythm. No arrhythmia. His heart rate has trended downward, especially after the initiation of beta-rafael. Echocardiogram performed today. There was a preliminary review of a few select images. A full report to follow after the entire study is available for review. LV systolic function appears to be significantly reduced. ASSESSMENT AND PLAN: 1. Acute systolic congestive heart failure: He does not feel much better despite diuresis. Would continue diuresis and monitor renal function and electrolytes closely. He continues to have orthopnea. Low sodium diet, less than 2000 mg daily. Continue I's and O's and daily weights. 2. Cardiomyopathy: Etiology not certain, however, does have risk factors for ischemic heart disease. Recommend cardiac catheterization when he has improved from a heart failure standpoint and can lay flat more comfortably. This will likely be in several days. This will be further discussed with him. In the meantime, will change metoprolol tartrate to metoprolol succinate. Would not further titrate beta-rafael today given his acute presentation; however, this can be titrated over time. He is currently slightly hypotensive and was just started on beta-blockers but would consider starting ALYSSA inhibitor soon, potentially tomorrow if blood pressure allows. Can continue spironolactone as well. If he is able to receive Entresto from the skilled nursing system, may also be a good option in place of ALYSSA inhibitor, but we will start ALYSSA inhibitor for now. 3. Sinus tachycardia: Likely secondary to reduced left ventricular systolic function/reduced stroke volume. No further titration of beta-rafael today as this is likely his compensating mechanism for reduced stroke volume. We will slowly titrate medications over time. 4. Hypertension: He carries a history of hypertension; however, is not currently hypertensive. Beta-rafael as discussed above. Would like to initiate ALYSSA inhibitor at some point as noted above. 5. Disposition: Cardiology will continue to follow. Highly complex medical issues with further ischemic evaluation recommended as noted above in the form of cardiac catheterization. Primary service, Zohaib Mckinney personally notified of the assessment and plan. Please call with any questions or concerns. Will continue to follow.
--- NOTE | 2016-07-13 17:55 | ECHOCARDIOGRAM REPORT ---
*NOTICE TO RECEIVING REPUBLICAN AGENCY This information is strictly Confidential and protected under [place] law. [place] law prohibits you from making any further disclosure of this information unless further disclosure is expressly permitted by the written consent of the person to whom it pertains or is authorized by law. A general authorization for the release of medical or other information is not sufficient for this purpose. Hospital accepts no responsibility if the information is made available to any other person, INCLUDING THE PATIENT. Interpretation Summary * Name: MOLINA LEMUS [id number] Study Date: 07/13/2016 01:05 PM BP: 95/58 mmHg * Patient Location: 2\S\S237\S\1 HR: 106 * : 1960 (M/d/yyyy) Gender: Male Height: 70 in * Age: 56 yrs Ethnicity: CA Weight: 165 lb * Ordering Physician: Oscar Cai * Referring Physician: Katie SPEAR * Performed By: Eh Kelly RDCS * * Reason For Study: CHF * BSA: 1.9 m2 * -- Conclusions -- * 1. Mildly dilated left ventricle with severely reduced systolic function. EF 25-30%. Global hypokinesis. No left ventricular hypertrophy. * 2. The right ventricular systolic function is mildly reduced. * 3. There is mild to moderate mitral regurgitation. * 4. Pleural effusion. * 5. Tissue Doppler suggests elevated left atrial pressure. * 6. No prior study available for comparison. Procedure Details * A complete two-dimensional transthoracic echocardiogram was performed (2D, M-mode, Doppler and color flow Doppler). * The study was technically adequate. Left Ventricle * Mildly dilated left ventricle with severely reduced systolic function. EF 25-30%. Global hypokinesis. No left ventricular hypertrophy. Right Ventricle * The right ventricle is normal size. * The right ventricular systolic function is mildly reduced. * The right ventricular systolic function is reduced as assessed by tricuspid annular plane systolic excursion (TAPSE) (TAPSE <1.6 cm). Atria * The left atrial size is normal. * Right atrial size is normal. * There is no evidence of atrial septal defect, but resolution does not allow assessment for a patent foramen ovale. Mitral Valve * The mitral valve leaflets appear normal. There is no evidence of stenosis, fluttering, or prolapse. * There is mild to moderate mitral regurgitation. Tricuspid Valve * The tricuspid valve is not well visualized, but is grossly normal. * There is no tricuspid stenosis. * Significant tricuspid regurgitation is absent. Aortic Valve * The aortic valve is normal in structure and function. * The aortic valve is trileaflet. * No hemodynamically significant valvular aortic stenosis. * No aortic regurgitation is present. Pulmonic Valve * The pulmonary valve is inadequately visualized, but the Doppler data is adequate for interpretation. * There is no pulmonic valvular stenosis. * There is no significant pulmonary regurgitation. Great Vessels * The aortic root is normal size. * Blunted pulmonary venous flow pattern. Pericardium/Pleural * There is no pericardial effusion. * Pleural effusion. Great Vessels * Mildly dilated IVC with normal inspiratory collapse. MMode 2D Measurements and Calculations IVSd 1.1 cm IVSs 1.3 cm LVIDd 5.3 cm LVIDs 4.6 cm LVPWd 1.0 cm LVPWs 1.3 cm IVS/LVPW 1.0 FS 13.8 % EDV(Teich) 134.3 ml ESV(Teich) 94.9 ml EF(Teich) 29.3 % EDV(cubed) 147.4 ml ESV(cubed) 94.3 ml EF(cubed) 36.0 % % IVS thick 18.6 % % LVPW thick 21.6 % LV mass(C)d 218.7 grams LV mass(C)dI 113.7 grams/m\S\2 LV mass(C)s 223.2 grams LV mass(C)sI 116.0 grams/m\S\2 SV(Teich) 39.3 ml SI(Teich) 20.5 ml/m\S\2 SV(cubed) 53.1 ml SI(cubed) 27.6 ml/m\S\2 EPSS 1.2 cm Ao root diam 3.1 cm Ao root area 7.4 cm\S\2 ACS 1.8 cm LA dimension 4.5 cm asc Aorta Diam 3.3 cm LA/Ao 1.5 LVAd ap4 30.1 cm\S\2 LVLd ap4 8.1 cm EDV(MOD-sp4) 92.0 ml LVAs ap4 24.4 cm\S\2 LVLs ap4 7.4 cm ESV(MOD-sp4) 64.0 ml EF(MOD-sp4) 30.4 % LVAd ap2 35.7 cm\S\2 LVLd ap2 8.7 cm EDV(MOD-sp2) 122.0 ml EDV(sp2-el) 149.4 ml LVAs ap2 28.5 cm\S\2 LVLs ap2 8.1 cm ESV(MOD-sp2) 85.0 ml ESV(sp2-el) 113.7 ml EF(MOD-sp2) 30.3 % EF(sp2-el) 23.9 % SV(MOD-sp4) 28.0 ml SI(MOD-sp4) 14.6 ml/m\S\2 SV(MOD-sp2) 37.0 ml SI(MOD-sp2) 19.2 ml/m\S\2 SV(sp2-el) 35.7 ml SI(sp2-el) 18.6 ml/m\S\2 Doppler Measurements and Calculations MV E max mary 117.5 cm/sec MV dec time 0.15 sec Ao V2 max 102.4 cm/sec Ao max PG 4.2 mmHg Ao max PG (full) 1.9 mmHg LV V1 max PG 2.3 mmHg LV V1 max 76.2 cm/sec MR max mary 387.0 cm/sec MR max PG 59.9 mmHg MR mean mary 287.0 cm/sec MR mean PG 38.0 mmHg MR VTI 111.0 cm PA V2 max 66.4 cm/sec PA max PG 1.8 mmHg RAP systole 8.0 mmHg
[2016-07-13] MEDS ORDERED: NURSING VERBAL MED ORDER ONE (19:45)
[2016-07-13] MEDS ORDERED: COUGH DROP (SUGAR FREE) LOZ 24 LOZ/1 BOX PO PRN (19:45)
[2016-07-14] VITALS (8 sets, daily range): BP systolic 85–146; BP diastolic 55–77; PULSE 96–107; TEMP 36.4–36.8; O2SAT 90–97
[2016-07-14] MEDS ORDERED: NURSING VERBAL MED ORDER ONE (02:15)
[2016-07-14] MEDS ORDERED: LORAZEPAM 1 MG TAB PO ONE (02:30)
[2016-07-14] MEDS ORDERED: LORAZEPAM 2 MG/ML 1 ML VIAL IV ONE (02:30)
[2016-07-14] MEDS: NITROGLYCERIN OINT 2% 1GM PACKET EXT SCH ×4 (04:52→22:00)
[2016-07-14] MEDS: HEPARIN SOD 5000 UNIT/0.5 ML CARP SQ SCH ×3 (06:03→21:34)
[2016-07-14] MEDS: INSULIN ASPART 100 UNITS/ML 3 ML PEN SC SCH ×4 (07:00→21:33)
[2016-07-14] MEDS: SENNA 8.6 MG TAB PO SCH ×2 (08:23→21:29)
[2016-07-14] MEDS: SPIRONOLACTONE 25 MG TAB PO SCH ×2 (08:23→21:29)
[2016-07-14] MEDS: FUROSEMIDE INJ 40 MG in SYRINGE 0 ML IV SCH ×2 (08:23→17:24)
[2016-07-14] MEDS: ASPIRIN 81 MG ECTAB PO SCH (08:24)
[2016-07-14] MEDS: POTASSIUM CHLORIDE 20 MEQ TABCR PO SCH ×2 (08:24→21:28)
[2016-07-14] MEDS: ATORVASTATIN 20 MG TAB PO SCH (08:24)
[2016-07-14 09:57] LABS: BUN/CREATININE RATIO 20.9 (10-20); CALCIUM 8.8 mg/dl (8.5-10.1); POTASSIUM 4.3 mmol/L (3.5-5.1)
[2016-07-14 10:09] LABS: BETA-HYDROXYBUTYRATE 2.17 mg/dL (0.2-2.81)
[2016-07-14] MEDS ORDERED: LISINOPRIL 5 MG TAB PO ONE (10:15)
[2016-07-14] MEDS: POLYETHYLENE (MIRALAX) 17 GM PACK PO SCH ×2 (10:41→21:31)
[2016-07-14] MEDS: METOPROLOL SUCC 25MG EXT REL TAB PO SCH ×2 (10:41→21:00)
[2016-07-14] MEDS: GUAIFENESIN 600 MG TABCR PO SCH ×2 (10:41→21:30)
--- NOTE | 2016-07-14 10:41 | CARDIOLOGY PROGRESS NOTE ---
DATE: 07/14/2016 TIME: 10:02 a.m. SUBJECTIVE: When I entered the room, he appeared to be breathing much more easily compared to yesterday. When asked specifically about his breathing, however, he began to demonstrate how it is difficult for him to breathe and began coughing with breathing. He states that he has not noted any improvement in his symptoms. His biggest concerns continue to be a coughing medicine, which has been relayed to the primary service. He also inquired about Ativan and left flank pain. He states he has a history of kidney stones. She has noted hematuria since yesterday afternoon. There is blood in the urinal at the bedside, which is quite dark concerning for blood. He denies angina, but does have some intermittent chest pain if labored breathing. He states that he has orthopnea and cannot lay flat. He denies syncope or palpitations. OBJECTIVE: VITAL SIGNS: Temperature 36.8 degrees, heart rate 104 beats per minute, respiratory rate 16, blood pressure 108/77 mmHg, and oxygen saturation 93% on room air. I's and O's negative 1 liter yesterday. Weight 68 kg. GENERAL: No acute distress. He is alert. NECK: No JVD, but there is hepatojugular reflux. CARDIAC EXAM: No ventricular heave. Regular, normal S1 and S2. There is an S3 gallop. No murmurs or rubs. LUNGS: Decreased breath sounds at bilateral bases, otherwise clear. ABDOMEN: Soft and nondistended. There is tenderness in the left flank area. Normoactive bowel sounds. EXTREMITIES: No cyanosis or edema. PSYCHIATRIC: Affect appears appropriate. MEDICATIONS: Include aspirin 81 mg daily, Lipitor 20 mg daily, Lasix 40 mg IV b.i.d., heparin 5000 units subQ q. 8 hours, metoprolol succinate 25 mg p.o. b.i.d., potassium chloride 20 mEq p.o. b.i.d., and spironolactone 50 mg p.o. b.i.d. LABORATORY DATA: Sodium 134, potassium 4.3, BUN is pending, creatinine is 1, and glucose 382. Blood cultures 1 out of 2 growing gram positive cocci from 07/12/2016. Telemetry personally reviewed. Sinus tachycardia; however, overall his heart rate has improved since admission. Echocardiogram on 07/13/2016 reviewed. Mild dilated LV with severely reduced systolic function. EF 25%-30%. Global hypokinesis. Mild to moderate mitral regurgitation. Mildly reduced RV systolic function. Tissue Doppler suggests elevated left atrial pressure. Pleural effusion suggested. ASSESSMENT AND PLAN: 1. Acute systolic congestive heart failure: Still has hepatojugular reflux and tissue Doppler suggests elevated left atrial pressure. Would continue diuretic with approximately 1 liter or more of negative net fluid balance each day. Monitor BUN and creatinine daily to monitor for prerenal signs. Low sodium diet. Daily weights. Strict I's and O's. 2. Cardiomyopathy: Diagnosis was discussed with him in detail. Cardiac catheterization is recommended. Risks and benefits were discussed with him. At this time, he declines invasive measures. We discussed the fact that he is unable yet to lay flat and therefore would plan for this in the next few days once he shows some improvement; however, he states that he prefers medical approach for now. We will initiate other secondary workup with laboratory data. We will initiate ALYSSA inhibitor, lisinopril. Continue beta rafael for now and this can be further titrated in the future as well. 3. Sinus tachycardia: Likely secondary to reduced stroke volume. Continue beta rafael at current dose today. Starting ALYSSA inhibitor. We will likely increase beta rafael later this hospitalization. 4. Hypertension: Blood pressure has not been hypertensive, but for the most part, rather mostly normotensive. Initiating medications as above for his cardiomyopathy and acute systolic congestive heart failure. 5. Mitral regurgitation: Non-severe. Follow over time. 6. Hematuria: Discussed with primary service, Zohaib Mckinney, physician assistant professor of nursing. He plans on further evaluating this. 7. Disposition: Cardiology will continue to follow.
--- NOTE | 2016-07-14 10:44 | DIAGNOSTIC IMAGING REPORT ---
CT OF THE ABDOMEN AND PELVIS WITHOUT CONTRAST, STONE PROTOCOL CLINICAL HISTORY: Left flank pain and hematuria. History of nephrolithiasis. Congestive heart failure. COMPARISON STUDY: None. TECHNIQUE: Helical axial images of the abdomen and pelvis were obtained without IV or oral contrast according to renal stone protocol. FINDINGS: Visualized portions of the lower chest demonstrate moderate bilateral pleural effusions which are partially imaged on since exam. There is subtotal left lower lobe collapse. There is extensive right lower lobe volume loss. Mild pulmonary edema is noted. There is no hydronephrosis. Note is made of a 1.1 cm calculus within the left renal pelvis and a 6 mm calculus within the right kidney is well as several calculi within the lower pole the right kidney. There are no ureteral calculi. Several bilateral renal lesions are suboptimally assessed on this unenhanced exam but measure near water attenuation and may reflect cysts. There are capsular calcifications along the medial aspect of the left kidney which are chronic. Mild splenomegaly is noted. There is a gallstone within the gallbladder. Evaluation of the abdomen and pelvis is suboptimal on this unenhanced exam. Multiple mildly enlarged upper abdominal lymph nodes are noted. A peripancreatic node measures 2.2 x 1.3 cm. There is no biliary or pancreatic ductal dilatation. There is slight nodularity of the liver surface. There may be small abdominal collaterals. The appendix is normal. There is colonic diverticulosis without evidence for acute diverticulitis. There are no suspicious osseous lesions. IMPRESSION: 1. 1.1 cm left renal pelvis calculus and right-sided nephrolithiasis. No ureteral calculi. No hydronephrosis. 2. Moderate bilateral pleural effusions with subtotal left lower lobe collapse and segmental right lower lobe atelectasis. Mild interstitial pulmonary edema. 3. Suspected cirrhosis with mild splenomegaly and small varices. No ascites. 4. Cholelithiasis. 5. Mild abdominal lymphadenopathy, a nonspecific finding. A follow-up CT in 6 months could be performed to ensure stability. Electronically signed by: Ash Robbins M.D. 07/14/2016 10:42 AM Dictated Date/Time: 07/14/2016 10:33 AM
[2016-07-14] MEDS ORDERED: INSULIN ASPART 100 UNITS/ML 3 ML PEN SC SCH (11:00)
[2016-07-14 11:43] LABS: FERRITIN 47.6 ng/ml (8.0-388.0); THYROID STIMULATING HORMONE 1.01 uIu/ml (0.300-4.500)
[2016-07-14] MEDS ORDERED: PHARMACY GLYCEMIC MGMT CONSULT PRN (12:15)
[2016-07-14] MEDS ORDERED: INSULIN GLARGINE SOLOSTAR 100 UNITS/ML 3 ML PEN SC SCH (12:30)
--- NOTE | 2016-07-14 14:24 | Pharmacy Progress Note ---
Glycemic Control Intl Consult Date of Service July 14, 2016. Scope Glycemic Pharmacist consulted by Jackson ARMIJO on 07/14/16 for glycemic control and to write orders per [facility] inpatient glycemic control protocol Objective Weight (Kilograms): 68.000 Accuchecks BSG (last 24hrs): Test 07/13/16 17:05 07/13/16 20:53 07/14/16 06:14 07/14/16 08:50 Bedside Glucose 193 mg/dl (70-99) 216 mg/dl (70-99) 261 mg/dl (70-99) Random Glucose 382 mg/dl (70-99) Test 07/14/16 11:28 Bedside Glucose 251 mg/dl (70-99) Recent Pertinent Medications Outpatient Anti-diabetic Regimen: * Glipizide 5mg PO BID * Metformin 1,000mg PO BID The patient is currently receiving: * Basal insulin: Lantus -- units every -- hours {none ordered} * Correctional Insulin: Novolog Correction per scale ACHS Goal Range: Low 120 mg/dL - High 160 mg/dL Correction Factor: 40 mg/dL/unit * Prandial insulin: Per carb ratio of 1 unit per -- grams CHO consumed {non ordered} * Oral Agents: On hold for admission Assessment & Plan ASSESSMENT: * 56yo T2DM male with unknown degree of outpatient control on 2 oral antidiabetic agents * Ordered A1c per protocol for tomorrow w/ AM labs * Pt is maintained on oral antidiabetic agents as an outpatient * Oral agents are not recommended for inpatient use d/t drug interactions, changing PO intake, and difficulty titrating for acute hyper/hypoglycemia. ADA recommends re-initiating outpatient oral agents 1-2 days prior to discharge if/ when appropriate if they were held on admission. * Oral agents held on admission per provider, but pt was only initiated on SQ [facility] * Pt with sustained hyperglycemia secondary to no basal insulin ordered & no CHO coverage ordered PLAN FOR INPATIENT GLYCEMIC CONTROL: Initiate weight based insulin dosing {with basal, prandial, and correctional components} for insulin caro patient and titrate based on BSG trends. * Hold outpatient oral diabetes medications * Basal insulin * Lantus 20 units SQ daily * Titrate to goal fasting BSG of 100-130mg/dl based on age and co-morbidities * Bolus insulin * NovoLog per scale ACHS or Q6hrs while NPO * Goal Range: Low 120 mg/dL - High 160 mg/dL * Correction Factor: 35 mg/dL/unit * Nutritional / Prandial insulin per carb ratio of 1 unit per 10 grams CHO consumed * Order A1c with AM labs * Add to discharge instructions to be communicated to PCP * Please note that the plan above was derived based on current level of insulin resistance and hospital stress. These recommendations are appropriate for inpatient admission only. Plan of care upon discharge will need to be reassessed to avoid potential outpatient hypo/hyperglycemia. Thank you.
[2016-07-14 14:27] LABS: HEMATOCRIT 44.6 % (42-52); MEAN CELL VOLUME 80.7 fL (80-100); MEAN CORPUSCULAR HEMOGLOBIN 26.9 pg (25-34); MEAN PLATELET VOLUME 12.1 fL (7.4-10.4); PLATELET COUNT 178 K/uL (130-400); RED BLOOD COUNT 5.53 M/uL (4.7-6.1); WHITE BLOOD COUNT 26.19 K/uL (4.8-10.8)
[2016-07-14 14:57] LABS: MEAN CORPUSCULAR HGB CONC 33.4 g/dl (32-36)
--- NOTE | 2016-07-14 15:08 | Hospitalist Progress Note ---
Hospitalist Progress Note Date of Service July 14, 2016. (Zohaib Mckinney CRNP) Subjective Pt evaluation today including: conversation w/ patient, physical exam, review of studies, conversation w/ [facility] consultant, review of inpatient medication list Pain: left flank PO Intake: tolerating PO Voiding: no voiding problems ongoing SOB. No Chest pain. C/O anxiety and left flank is sore. Urine pink. Constitutional: No chills, No fatigue, No fever, No problem reported, No see HPI, No sweats, No weakness, No weight loss ENT: No dental problems, No hearing loss, No nasal symptoms, No problem reported, No see HPI, No sore throat, No tinnitus, No trouble swallowing, No unusual epistaxis Respiratory: + cough, + dyspnea on exertion, + shortness of breath, + wheezing Cardiovascular: + orthopnea Abdomen: No GI bleeding, No constipation, No diarrhea, No nausea, No pain, No problem reported, No see HPI, No vomiting Musculoskeletal: No calf pain, No joint pain, No muscle pain, No problem reported, No see HPI, No swelling Male : + hematuria Psychiatric: + anxiety Skin: No bleeding, No color change, No itch, No new/changing skin lesions, No problem reported, No rash, No see HPI (Zohaib Mckinney CRNP) Medications reviewed (Zohaib Mckinney CRNP) Objective Vital Signs Date Time Temp Pulse Resp B/P Pulse Ox O2 Delivery O2 Flow Rate FiO2 07/14/16 07:29 36.8 104 16 108/77 93 Room Air 07/14/16 04:23 36.4 96 19 99/67 90 Room Air 07/14/16 04:00 Room Air 07/13/16 23:59 Room Air 07/13/16 23:24 36.7 101 19 103/71 90 Room Air 07/13/16 20:00 Nasal Cannula 2.0 07/13/16 19:54 36.8 114 18 107/72 97 Nasal Cannula 07/13/16 16:27 37.0 108 20 107/73 92 Room Air 07/13/16 16:00 Room Air 07/13/16 12:00 Room Air 07/13/16 12:00 36.9 103 17 97/68 96 Nasal Cannula 2.0 (Zohaib Mckinney CRNP) Physical Exam General Appearance: no apparent distress Eyes: PERRL, sclerae normal ENT: hearing grossly normal, pharynx normal Neck: supple Respiratory/Chest: + decreased breath sounds (bases) Cardiovascular: no JVD Abdomen: normal bowel sounds, non tender, soft Extremities: non-tender, normal inspection, no pedal edema, no calf tenderness Neurologic/Psychiatric: alert, oriented x 3 Skin: normal color, warm/dry, no rash (Zohaib Mckinney, ZOFIA) Laboratory Results Last 24 Hours Test 07/13/16 11:24 07/13/16 17:05 07/13/16 20:53 07/14/16 06:14 Bedside Glucose 206 mg/dl 193 mg/dl 216 mg/dl 261 mg/dl Test 07/14/16 08:50 (Zohaib Mckinney, ZOFIA) Assessment and Plan 56 y/o Male with history of HTN, DM, likely chronic leukemia. Presents from the local [facility] with progressive SOB and cough. States that he can barely walk a few paces without significant SOB. He is uncomfortable lying flat. He denies CP, N/V, fevers. Initial imaging and labs are consistent with new onset CHF. He denies a previous history of cardiovascular disease however it is noted that he takes daily Aldactone. 1. Acute exac systolic CHF with cardiomyopathy - EF 20-25% - still c/o shortness of breath/cough - Continue IV lasix- aldactone. daily weights, I/O. output about 2.5L daily. WT down about 3lbs - Appreciate Dr. Bruno input. - continue Toprol XL - trops normal x 3 - started on Statin and ASA on admission - will need lisinopril once BP more stable - has been running right around 100 systolic - cards is recommending heart cath when patient can lie flat. 2. Leukocytosis - Afebrile - WBC over 45k with over 40% lymphocytes initially. 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 Patient states a heme/onc follows him every six months at the [facility] by telemedicine - check WBC in AM 3. left flank pain with hematuria and history of nephrolithiasis - CT with no ureteral stones or hydronephrosis. positive for nephrolithiasis 4. DM - placed on SSI 6. Moderate bilateral pleural effusion on CT abd - likely transudative from CHF. - continue diuresis - if diminished lung sounds and shortness of breath do not improve my need marked and tapped. 7. positive blood cultures from admission - one of two samples with gram positive cocci. - Afebrile, CXR no infection, UA no bacteria - repeat blood cultures today 8. Psychotic disorder - will remain on home meds 9. DVT prophylaxis - Heparin 10. Full Code 11. Disposition - likely 2 to 3 more days in hospital then return to [facility]. Continued [facility] stay due to: other (IV diuretics) Discharge planning: other (will return to [facility]) (Zohaib Mckinney ., ZOFIA) Attending Attestation: Chart reviewed in detail. Care plan d/w ZOFIA Mckinney. I agree with the lacy components of his documentation. Taye Velez MD (Taye Velez MD)
[2016-07-14] MEDS: ALBUT/IPRATROP 3MG/0.5MG NEB 3 ML VIAL INH SCH ×2 (15:23→19:40)
[2016-07-14 15:30] LABS: BASO % 0.3 %; BASO ABS # 0.09 K/uL (0-0.2); COMPLETE YES; EOS % 0.9 %; IG% 0.2 %; LYMPH ABS # 20.96 K/uL (1.2-3.4); MONO % 3.1 %; NEUT % 15.5 %; SMUDGE CELLS PRESENT
[2016-07-14] MEDS: LORAZEPAM 1 MG TAB PO PRN (21:29)
[2016-07-14] MEDS: DOXEPIN HCL 50 MG CAP PO SCH (21:30)
[2016-07-15] VITALS (11 sets, daily range): BP systolic 82–101; BP diastolic 51–71; PULSE 99–110; TEMP 36.4–36.7; O2SAT 92–98; Ht 177.8 cm; Wt 67.5 kg
[2016-07-15] MEDS: INSULIN ASPART 100 UNITS/ML 3 ML PEN SC SCH ×6 (01:29→21:38)
[2016-07-15] MEDS: LORAZEPAM 1 MG TAB PO PRN ×2 (03:30→20:17)
[2016-07-15] MEDS: NITROGLYCERIN OINT 2% 1GM PACKET EXT SCH ×3 (04:00→15:24)
[2016-07-15] MEDS: HEPARIN SOD 5000 UNIT/0.5 ML CARP SQ SCH ×3 (05:44→21:38)
[2016-07-15] MEDS: ALBUT/IPRATROP 3MG/0.5MG NEB 3 ML VIAL INH SCH ×2 (07:28→11:39)
[2016-07-15 08:01] LABS: ESTIMATED AVERAGE GLUCOSE 212 mg/dl; HA1C FLAG Normal (Normal)
[2016-07-15 08:14] LABS: BUN/CREATININE RATIO 24.7 (10-20); CREATININE 0.88 mg/dl (0.60-1.40)
[2016-07-15 08:21] LABS: MEAN CELL VOLUME 79.4 fL (80-100); MEAN CORPUSCULAR HEMOGLOBIN 26.6 pg (25-34); MEAN CORPUSCULAR HGB CONC 33.6 g/dl (32-36); MEAN PLATELET VOLUME 10.6 fL (7.4-10.4); PLATELET COUNT 172 K/uL (130-400); RED BLOOD COUNT 5.67 M/uL (4.7-6.1); WHITE BLOOD COUNT 24.72 K/uL (4.8-10.8)
[2016-07-15 08:22] LABS: COMPLETE YES; ECHINOCYTES 2+; LYMPH ABS # 21.04 K/uL (1.2-3.4); LYMPHOCYTE % 85.1 %; NEUTROPHILS % 12.3 %; SMUDGE CELLS PRESENT
[2016-07-15] MEDS: POLYETHYLENE (MIRALAX) 17 GM PACK PO SCH ×2 (09:00→20:19)
[2016-07-15] MEDS ORDERED: LISINOPRIL 5 MG TAB PO SCH (09:00)
[2016-07-15] MEDS: METOPROLOL SUCC 25MG EXT REL TAB PO SCH ×2 (09:00→20:13)
[2016-07-15] MEDS: FUROSEMIDE INJ 40 MG in SYRINGE 0 ML IV SCH ×2 (09:14→15:22)
[2016-07-15] MEDS: GUAIFENESIN 600 MG TABCR PO SCH ×2 (09:15→20:12)
[2016-07-15] MEDS: SPIRONOLACTONE 25 MG TAB PO SCH ×2 (09:15→20:11)
[2016-07-15] MEDS: ATORVASTATIN 20 MG TAB PO SCH (09:15)
[2016-07-15] MEDS: ASPIRIN 81 MG ECTAB PO SCH (09:15)
[2016-07-15] MEDS: SENNA 8.6 MG TAB PO SCH ×2 (09:16→20:12)
[2016-07-15] MEDS: POTASSIUM CHLORIDE 20 MEQ TABCR PO SCH ×2 (09:18→20:11)
[2016-07-15] MEDS: INSULIN GLARGINE SOLOSTAR 100 UNITS/ML 3 ML PEN SC SCH (09:24)
[2016-07-15 09:40] LABS: COMPLETE YES
--- NOTE | 2016-07-15 12:15 | CARDIOLOGY PROGRESS NOTE ---
DATE: 07/15/2016 TIME: 11:25 a.m. SUBJECTIVE: Although, he appears to be breathing much better upon visual inspection, when asked how he is feeling, he states that his breathing is not improved at all. He states he is labored breathing and pursed lip breathing; however, he is currently on room air and appears very comfortable with his breathing until he demonstrates it, in which case he makes himself cough and labor, but only while demonstrating this. He states that he has no angina. He denies syncope, but does have lightheadedness intermittently. He denies edema. His biggest complaints are his left flank pain and kidney stones. OBJECTIVE: VITAL SIGNS: Temperature 36.6 degrees, heart rate 106 beats per minute, respiratory rate 18, and blood pressure 97/66 mmHg; however, his systolic blood pressure has intermittently been in the 80s. Oxygen saturation is 94% on room air. I's and O's relatively even yesterday. Weight is pending. GENERAL: No acute distress. He is alert. NECK: No JVD. No significant hepatojugular reflux. CARDIAC EXAM: No ventricular heave. Regular, normal S1 and S2. There is an S3 gallop. No audible murmurs. LUNGS: Decreased breath sounds at the bases, otherwise clear. ABDOMEN: Soft, nontender, and nondistended. Normoactive bowel sounds. There is left lateral flank pain. EXTREMITIES: No cyanosis or edema. PSYCHIATRIC: Affect appears appropriate. MEDICATIONS: Include aspirin 81 mg daily, Lipitor 20 mg daily, Lasix 40 mg IV b.i.d., heparin 5000 units subQ q. 8 hours, lisinopril 5 mg daily, and metoprolol succinate 25 mg b.i.d., however, this has been held since yesterday morning due to hypotension. Telemetry personally reviewed. Sinus tachycardia. LABORATORY DATA: Sodium 138, potassium 4, BUN 22 up from 21, and creatinine 0.88. TSH 1.01. White blood cell count 24.7, hemoglobin 15.1, and platelets 172. Abdomen and pelvis CT on 07/14/2016. Images were personally reviewed. Pleural effusions were noted. Radiology has interpreted moderate bilateral pleural effusions with subtotal left lower lobe collapse and segmental right lower lobe atelectasis. Mild interstitial pulmonary edema. Suspect cirrhosis with mild splenomegaly and small varices. No ascites. Cholelithiasis. Left renal pelvis calculus and right-sided nephrolithiasis, but no ureteral calculi. No hydronephrosis. Mild abdominal lymphadenopathy. ASSESSMENT AND PLAN: 1. Acute systolic congestive heart failure: He did not appear to be significantly hypervolemic currently; however, his creatinine is not yet bumped. His BUN has increased somewhat throughout his hospital stay. We will give an additional 40 mg of IV Lasix in additional to the IV b.i.d. dosing. Low sodium diet, strict I's and O's, and daily weights recommended. 2. Cardiomyopathy: He has declined cardiac catheterization and this was once again discussed with him. Cardiac catheterization is recommended. He has been hypotensive ever since receiving lisinopril. He did receive lisinopril this morning. Because of this, metoprolol was held. Would prefer that he receives his metoprolol given his ongoing tachycardia. Therefore, we will increase metoprolol succinate at 37.5 mg twice daily, as he did tolerate 25 mg twice daily well. We will discontinue lisinopril for now and if in the future, blood pressure allows, we can reintroduce this. If LV systolic function is not improved, once therapy is optimized, would consider ICD for primary prevention, if he is interested. 3. Sinus tachycardia: Beta rafael as above. 4. Hypotension: Lisinopril will be discontinued. 5. Mitral regurgitation: Nonsevere. Follow over time. 6. Pleural effusions: He does have some collapsed lung according to radiology on CT. Although he appears visually much improved from a breathing standpoint, he states that he has not had any improvement. It is not clear how much more diuresis will be effective in his symptoms. Consider pulmonology consult for evaluation of possible thoracentesis to see if he symptomatically improves. 7. Hematuria: As per primary service. 8. Disposition: Plan of care and recommendations have been discussed with Dr. Anand of the primary hospitalist service. I will be away from the hospital for the next 2 days. Please direct any questions or concerns to Dr. Patel of the [facility], who will be covering in my absence.
[2016-07-15] MEDS ORDERED: FUROSEMIDE INJ 40 MG in SYRINGE 0 ML IV SCH (13:00)
--- NOTE | 2016-07-15 13:19 | Pharmacy Progress Note ---
Glycemic Control: Progress Nt Date of Service July 15, 2016. Scope Glycemic Pharmacist consulted for glycemic control and to write orders per [facility] inpatient glycemic control protocol. Objective Accuchecks BSG (last 24hrs): Test 07/14/16 16:19 07/14/16 20:05 07/15/16 01:06 07/15/16 04:06 Bedside Glucose 149 mg/dl (70-99) 293 mg/dl (70-99) 231 mg/dl (70-99) 149 mg/dl (70-99) Test 07/15/16 06:20 07/15/16 07:31 07/15/16 11:32 Bedside Glucose 128 mg/dl (70-99) 291 mg/dl (70-99) Random Glucose 158 mg/dl (70-99) Laboratory Data (last 24hrs) HbA1c: Test 07/15/16 07:31 Hemoglobin A1c 9.0 % (4.5-5.6) H Recent Pertinent Medications Outpatient Anti-diabetic Regimen: * Glipizide 5mg PO BID * Metformin 1,000mg PO BID The patient is currently receiving: * Basal insulin: Lantus 20 units every 24 hours given in AM * Correctional Insulin: Novolog Correction per scale ACHS Goal Range: Low 110 mg/dL - High 140 mg/dL Correction Factor: 30 mg/dL/unit * Prandial insulin: Per carb ratio of 1 unit per 10 grams CHO consumed * Oral Agents: On hold for admission Assessment & Plan ASSESSMENT: * 56yo T2DM male with sub-adequate degree of outpatient control on 2 oral antidiabetic agents * A1c = 9% * Could consider maximizing glipizide dosing for better outpatient glycemic control vs adding additional agent * Oral agents held on admission per provider, but pt was only initiated on SQ SSI * Pt with sustained hyperglycemia secondary to no basal insulin ordered & no CHO coverage ordered * Weight based SQ basal bolus insulin regimen initiated 07/14 per pharmacy consult * BSGs improved with addition of basal & prandial insulin but are still above range * Will continue to titrate dosing based on BSG trends * Patient is currently receiving 43 units of insulin per day * 20 units of basal insulin * 23 units of prandial/correctional insulin * BSGs ranging 149 - 293 over the past 24hrs * AM Fasting BSG = 128mg/dl, this is in range but more stringent goal range warranted for pt based on age. * Post-prandial BSGs are elevated/BSGs rise throughout the day therefore Tighten CF/CR PLAN FOR INPATIENT GLYCEMIC CONTROL: Increase SQ basal bolus insulin regimen based on a total daily dose of ~ 50-60 units/day * Hold outpatient oral diabetes medications * Basal insulin * Increase Lantus 25 units SQ daily * Titrate to goal fasting BSG of 100-130mg/dl based on age and co-morbidities * Bolus insulin * NovoLog per scale ACHS or Q6hrs while NPO * Goal Range: Low 120 mg/dL - High 160 mg/dL * Tighten Correction Factor: 25 mg/dL/unit * Tighten Nutritional / Prandial insulin per carb ratio of 1 unit per 8 grams CHO consumed * Added A1c discharge instructions to be communicated to PCP * Please note that the plan above was derived based on current level of insulin resistance and hospital stress. These recommendations are appropriate for inpatient admission only. Plan of care upon discharge will need to be reassessed to avoid potential outpatient hypo/hyperglycemia. Thank you.
--- NOTE | 2016-07-15 14:00 | DIAGNOSTIC IMAGING REPORT ---
KUB HISTORY: Left flank pain, worsening COMPARISON: Abdomen and pelvis CT 07/14/2016. FINDINGS: The bowel gas pattern is unremarkable. There are no dilated loops of small bowel to suggest an obstruction. No ureteral calculi. There are a few pelvic phleboliths. Cholelithiasis. A few small stones within the lower pole of the right kidney, unchanged. Dominant stone within the left renal pelvis seen on the prior study now resides within the lower pole. Multiple calcifications along the medial aspect of the left kidney remains unchanged. Moderate well-formed stool seen within the colon. No pneumoperitoneum or pneumatosis. IMPRESSION: 1. Bilateral nephrolithiasis. No ureteral calculi identified. 2. Cholelithiasis. 3. Moderate stool seen within the colon. Electronically signed by: Rick Finley M.D. 07/15/2016 1:58 PM Dictated Date/Time: 07/15/2016 1:56 PM
[2016-07-15] MEDS: KETOROLAC TROMETHAMINE 30 MG/ML VIAL IV PRN (14:46)
[2016-07-15] MEDS: IPRATROPIUM BROMIDE/ALBUTEROL respimat INH INH SCH ×2 (15:22→20:10)
[2016-07-15] MEDS ORDERED: NURSING VERBAL MED ORDER ONE (15:30)
[2016-07-15] MEDS ORDERED: BISACODYL 10 MG SUPP PR PRN (15:45)
--- NOTE | 2016-07-15 15:46 | Progress Note ---
Subjective Date of Service: July 15, 2016. Subjective Pt evaluation today including: conversation w/ patient, physical exam, conversation w/ information technology consultant, review of inpatient medication list Pain: left flank pain PO Intake: adequate Voiding: no voiding problems patient focused on left flank pain, says he has pain from his kidney stone, severe says he wants Morphine 15mg or Percocet or Demerol discussed that on the CT scan the stone was in the kidney and shouldn't be causing severe pain checked KUB, no stones in the ureters bilaterally refused Toradol and refused Tylenol, only wants narcotics d/w RN over the phone, told her that there was no reason for narcotics seen on imaging, will not order narcotics at this time same RN had patient yesterday, says he had not pain but then developed pain after hearing he had a kidney stone still feels short of breath, has non-productive cough has diuresed 2.5 liters, weight down a kilogram d/w Dr. Bruno, planning on Lasix today and monitor response, suggested possible thoracentesis Problem List Medical Problems: (1) Orthopnea Status: Acute (2) Pulmonary edema Status: Acute (3) SOB (shortness of breath) Status: Acute Review of Systems Constitutional: + fatigue, + weakness Respiratory: + cough, + dyspnea on exertion, + shortness of breath Abdomen: + pain (left flank, does not radiate to LLQ or inguinal region) All Other Systems: Reviewed and Negative Medications Current Inpatient Medications Medications (Trade) Dose Ordered Sig/Jessica Route Start Time Stop Time Status Last Admin Dose Admin Doxepin HCl (Sinequan Cap) 50 mg HS PO 07/12/16 21:00 08/11/16 20:59 07/14/16 21:30 50 MG Senna (Senokot Tab) 17.2 mg BID PO 07/12/16 21:00 08/11/16 20:59 07/15/16 09:16 17.2 MG Spironolactone (Aldactone Tab) 50 mg BID PO 07/12/16 21:00 08/11/16 20:59 07/15/16 09:15 50 MG Diphenhydramine HCl (Benadryl Cap) 50 mg HS PO 07/12/16 21:00 08/11/16 20:59 07/14/16 21:28 50 MG Polyethylene 17 gm 17 gm BID PO 07/12/16 21:00 08/11/16 20:59 07/14/16 21:31 17 GM Furosemide/Syringe (Lasix Inj/ Syringe) 4 ml @ 4 mls/min BID17 IV 07/12/16 23:00 08/11/16 22:59 07/15/16 15:22 4 MLS/MIN Potassium Chloride (Klor-Con Tab) 20 meq BID PO 07/12/16 21:00 08/11/16 20:59 07/15/16 09:18 20 MEQ Aspirin (Ecotrin Tab) 81 mg DAILY PO 07/13/16 09:00 08/12/16 08:59 07/15/16 09:15 81 MG Atorvastatin Calcium (Lipitor Tab) 20 mg QAM PO 07/13/16 09:00 08/12/16 08:59 07/15/16 09:15 20 MG Heparin Sodium (Porcine) (Heparin Sq 5000 Unit/0.5ml) 5,000 unit Q8H SQ 07/12/16 22:00 08/11/16 21:59 07/15/16 12:07 5,000 UNIT Acetaminophen (Tylenol Tab) 650 mg Q4H PRN PO 07/12/16 20:15 08/11/16 20:14 Al Hydrox/Mg Hydrox/Simethicone (Maalox Max Susp) 15 ml Q4H PRN PO 07/12/16 20:15 08/11/16 20:14 Magnesium Hydroxide (Milk Of Magnesia Susp) 30 ml Q12H PRN PO 07/12/16 20:15 08/11/16 20:14 07/15/16 12:10 30 ML Ondansetron HCl (Zofran Inj) 4 mg Q6H PRN IV 07/12/16 20:15 08/11/16 20:14 Nitroglycerin (Nitrostat Tab) 0.4 mg UD PRN SL 07/12/16 20:15 08/11/16 20:14 Nitroglycerin (Nitroglycerin 2% Oint) 1 inch Q6H EXT 07/12/16 22:00 08/11/16 21:59 07/14/16 09:50 1 INCH Morphine Sulfate (MoRPHine SULFATE INJ) 2 mg Q30M PRN IV 5/26/17 20:15 07/26/16 20:14 07/15/16 12:09 2 MG Polyethylene (Miralax Powder Packet) 17 gm DAILY PRN PO 07/12/16 20:15 08/11/16 20:14 Insulin Aspart (novoLOG ASPART) SLIDING SCALE G... ACHS SC 07/12/16 21:00 08/11/16 20:59 07/15/16 11:00 11 UNITS Glucose (Glucose 40% Gel) 15-30 GRAMS 15 GRAMS... UD PRN PO 07/12/16 21:45 08/11/16 21:44 Glucose (Glucose Chew Tab) 4-8 Tablets 4 Tabl... UD PRN PO 07/12/16 21:45 08/11/16 21:44 Dextrose (Dextrose 50% 50ML Syringe) 25-50ML OF 50% DW IV FOR... UD PRN IV 07/12/16 21:45 08/11/16 21:44 Glucagon (Glucagon Inj) 1 mg UD PRN SQ 07/12/16 21:45 08/11/16 21:44 Menthol (Nice Katy) 1 katy PRN PRN PO 07/13/16 19:45 08/12/16 19:44 Guaifenesin (Mucinex Contr Rel Tab) 1,200 mg Q12 PO 07/14/16 10:00 08/13/16 09:59 07/15/16 09:15 1,200 MG Lorazepam (Ativan Tab) 1 mg Q6H PRN PO 07/14/16 10:00 08/13/16 09:59 07/15/16 03:30 1 MG Miscellaneous Information (Consult Glycemic Management Pharmacy) 1 ea UD PRN N/A 07/14/16 12:15 08/13/16 12:14 Insulin Glargine (Lantus Solostar Pen) 25 unit DAILY SC 07/15/16 09:00 08/14/16 08:59 07/15/16 09:24 25 UNIT Metoprolol Succinate 37.5 mg 37.5 mg BID PO 07/15/16 21:00 08/14/16 20:59 Furosemide/Syringe (Lasix Inj/ Syringe) 4 ml @ 4 mls/min TODAY@1300 IV 07/15/16 13:00 07/15/16 18:00 07/15/16 13:00 4 MLS/MIN Ketorolac Tromethamine (Toradol Inj) 30 mg Q6H PRN IV 07/15/16 12:45 07/20/16 12:44 07/15/16 14:46 30 MG Albuterol/ Ipratropium (Combivent Respimat Inh) 1 puffs QID INH 07/15/16 17:00 08/14/16 16:59 07/15/16 15:22 1 PUFFS Miscellaneous Information (Nursing Verbal Med Order) 1 ea ONE ONCE N/A 07/15/16 15:30 07/15/16 15:31 UNV Objective Vital Signs Date Time Temp Pulse Resp B/P Pulse Ox O2 Delivery O2 Flow Rate FiO2 07/15/16 12:00 36.5 105 18 101/71 98 Room Air 07/15/16 12:00 98 Room Air 07/15/16 11:39 106 16 96 Room Air 07/15/16 08:04 36.6 106 18 97/66 94 Room Air 07/15/16 08:00 94 07/15/16 07:28 100 18 92 Room Air 07/15/16 04:00 Room Air 07/15/16 03:37 90/61 07/15/16 03:30 36.4 99 18 82/51 94 Room Air 07/15/16 00:13 36.5 102 18 85/59 93 Room Air 07/14/16 23:59 Room Air 07/14/16 20:00 Room Air 07/14/16 19:39 36.5 101 20 90/61 91 Room Air 07/14/16 19:00 100 18 95 Room Air 07/14/16 16:02 Nasal Cannula 2.0 Physical Exam General Appearance: WD/WN, no apparent distress Eyes: normal inspection, EOMI, sclerae normal Neck: supple, no adenopathy, no JVD, trachea midline Respiratory/Chest: chest non-tender, lungs clear, no respiratory distress, no accessory muscle use, + decreased breath sounds (bases) Cardiovascular: regular rate, rhythm, no edema, no gallop, no JVD, no murmur Abdomen: normal bowel sounds, non tender, soft, no organomegaly Extremities: normal range of motion, non-tender, no pedal edema, no calf tenderness, + pertinent finding (mild muscle wasting in lower extremities) Neurologic/Psychiatric: lens finisher II-XII nml as tested, no motor/sensory deficits, alert, normal mood/affect, oriented x 3 Skin: normal color, warm/dry, no rash Lymphatic: no adenopathy Laboratory Results KUB HISTORY: Left flank pain, worsening COMPARISON: Abdomen and pelvis CT 07/14/2016. FINDINGS: The bowel gas pattern is unremarkable. There are no dilated loops of small bowel to suggest an obstruction. No ureteral calculi. There are a few pelvic phleboliths. Cholelithiasis. A few small stones within the lower pole of the right kidney, unchanged. Dominant stone within the left renal pelvis seen on the prior study now resides within the lower pole. Multiple calcifications along the medial aspect of the left kidney remains unchanged. Moderate well-formed stool seen within the colon. No pneumoperitoneum or pneumatosis. IMPRESSION: 1. Bilateral nephrolithiasis. No ureteral calculi identified. 2. Cholelithiasis. 3. Moderate stool seen within the colon. Last 24 Hours Test 07/14/16 16:19 07/14/16 20:05 07/15/16 01:06 07/15/16 04:06 Bedside Glucose 149 mg/dl 293 mg/dl 231 mg/dl 149 mg/dl Test 07/15/16 06:20 07/15/16 07:31 07/15/16 11:32 Bedside Glucose 128 mg/dl 291 mg/dl White Blood Count 24.72 K/uL Red Blood Count 5.67 M/uL Hemoglobin 15.1 g/dL Hematocrit 45.0 % Mean Corpuscular Volume 79.4 fL Mean Corpuscular Hemoglobin 26.6 pg Mean Corpuscular Hemoglobin Concent 33.6 g/dl Platelet Count 172 K/uL Mean Platelet Volume 10.6 fL RDW Standard Deviation 39.0 fL RDW Coefficient of Variation 13.8 % Neutrophils % (Manual) 12.3 % Lymphocytes % (Manual) 85.1 % Monocytes % (Manual) 2.6 % Neutrophils # (Manual) 3.04 K/uL Total Absolute Neutrophils 3.04 K/uL Lymphocytes # (Manual) 21.04 K/uL Total Absolute Lymphocytes 21.04 K/uL Monocytes # (Manual) 0.64 K/uL Smudge Cells PRESENT Echinocytes 2+ Sodium Level 138 mmol/L Potassium Level 4.0 mmol/L Chloride Level 100 mmol/L Carbon Dioxide Level 27 mmol/L Anion Gap 11.0 mmol/L Blood Urea Nitrogen 22 mg/dl Creatinine 0.88 mg/dl Est Creatinine Clear Calc Drug Dose 88.0 ml/min Estimated GFR () 109.7 Estimated GFR (Non- 94.7 BUN/Creatinine Ratio 24.7 Random Glucose 158 mg/dl Estimated Average Glucose 212 mg/dl Hemoglobin A1c 9.0 % Calcium Level 9.0 mg/dl Assessment and Plan 56 y/o Male with history of HTN, DM, likely chronic leukemia. Presents from the local [facility] with progressive SOB and cough. States that he can barely walk a few paces without significant SOB. He is uncomfortable lying flat. He denies CP, N/V, fevers. Initial imaging and labs are consistent with new onset CHF. He denies a previous history of cardiovascular disease however it is noted that he takes daily Aldactone. 1. Acute exac systolic CHF with cardiomyopathy - EF 20-25% - still c/o shortness of breath/cough despite diuresis, reports no improvement since admission - additional Lasix today, watch for response, d/w Dr. Bruno - cardiology recommended heart cath, patient refuses. - continue Toprol XL - trops normal x 3 - started on Statin and ASA on admission - will need lisinopril once BP more stable - has been running low normal with systolic 90-100 today 2. Leukocytosis - Afebrile - WBC over 45k with over 80% lymphocytes initially, 25k today - likely CLL. Patient states a heme/onc follows [facility] by telemedicine - continue to monitor 3. left flank pain with hematuria and history of nephrolithiasis - doubt that pain is due to stones that are in the kidney - checked KUB today, confirmed that no stones in the ureters - feel that there is a degree of pain seeking, focused on getting specific medications, making suggestions for dosing - d/w RN, told her that he could have Toradol or Tylenol, no indication for narcotics currently 4. DM - placed on SSI 6. Moderate bilateral pleural effusion on CT abd - likely transudative from CHF. - continue diuresis - still with shortness of breath, will ask thoracic surgery to evaluate tomorrow for diagnostic/therapeutic tap 7. positive blood cultures from admission - one of two samples with gram positive cocci. - Afebrile, CXR no infection, UA no bacteria - repeat blood cultures - NG - likely contaminant 8. Psychotic disorder - will remain on home meds 9. DVT prophylaxis - Heparin 10. Full Code Continued [facility] stay due to: other (IV diuretics) Discharge planning: other (will return to [facility])
--- NOTE | 2016-07-15 16:05 | Medical Student: [facility] ---
Med Student Progress Note Date of Service July 15, 2016. Subjective Pt evaluation today including: conversation w/ patient Pain: 8 PO Intake: good Voiding: no voiding problems Ramiro Hadley is a 56 yo prisoner with acute CHF exacerbation, partial lower lobe colapse, and L flank pain on hospital day 3. He has a history of systolic heart failure with an EF of 25%. He was short of breath yesterday. His breathing does not appear labored today, but he states his breathing has not improved. He notes improvement with pursed lip breathing and becomes short of breath with cough. His cough is mostly nonproductive.He cannot lay flat to sleep. He becomes weak and falls to the floor after several steps. He complains of left flank pain x3 days that comes and goes. He notes a history of kidney stones, feels like one is "coming on". He denies fever chills, nausea, vomiting diarrhea, loss of consciousness, or chest pain. Review of Systems Constitutional: + weakness, No chills, No fatigue, No fever, No sweats, No weight loss Eyes: No problem reported ENT: No problem reported Respiratory: + cough, + dyspnea at rest, + dyspnea on exertion, + shortness of breath, + sputum (scant), No hemoptysis, No wheezing Cardiac: + PND, + orthopnea, + palpitations, No chest pain, No claudication, No edema Abdomen: No problem reported Male : + hematuria (improving), + problem reported (L flank pain) Neurologic: No problem reported Psychiatric: No problem reported Heme: + problem reported (hx of CLL) Objective Vital Signs Date Time Temp Pulse Resp B/P Pulse Ox O2 Delivery O2 Flow Rate FiO2 07/15/16 12:00 36.5 105 18 101/71 98 Room Air 07/15/16 12:00 98 Room Air 07/15/16 11:39 106 16 96 Room Air 07/15/16 08:04 36.6 106 18 97/66 94 Room Air 07/15/16 08:00 94 07/15/16 07:28 100 18 92 Room Air 07/15/16 04:00 Room Air 07/15/16 03:37 90/61 07/15/16 03:30 36.4 99 18 82/51 94 Room Air 07/15/16 00:13 36.5 102 18 85/59 93 Room Air 07/14/16 23:59 Room Air 07/14/16 20:00 Room Air 07/14/16 19:39 36.5 101 20 90/61 91 Room Air 07/14/16 19:00 100 18 95 Room Air 07/14/16 16:02 Nasal Cannula 2.0 Physical Exam Comments: Vitals: See above. BP has been labile, with systolic pressures dipping into 80s and 90s. General: Thin, tired appearing male looking older than his stated age. Handcuffed to bed. HEENT: NCAT, PERRLA, EOMI. Mucus membranes mildly dry. CV: S1, S2. Soft systolic decrescendo murmur heard best over mitral valve. Weak peripheral pulses, equal bilaterally. Resp: Lungs diminished over bilateral bases. Some stridor, no crackles or wheezes. Abdomen: Appears larger than rest of body, which is relatively thin. Diffuse small bruises/rashes. Active bowel sounds. Non-tender. Non-distended. : L flank pain. Psych: AOx3. Not visibly anxious or depressed. Laboratory Results Last 24 Hours Test 07/14/16 16:19 07/14/16 20:05 07/15/16 01:06 07/15/16 04:06 Bedside Glucose 149 mg/dl 293 mg/dl 231 mg/dl 149 mg/dl Test 07/15/16 06:20 07/15/16 07:31 07/15/16 11:32 Bedside Glucose 128 mg/dl 291 mg/dl White Blood Count 24.72 K/uL Red Blood Count 5.67 M/uL Hemoglobin 15.1 g/dL Hematocrit 45.0 % Mean Corpuscular Volume 79.4 fL Mean Corpuscular Hemoglobin 26.6 pg Mean Corpuscular Hemoglobin Concent 33.6 g/dl Platelet Count 172 K/uL Mean Platelet Volume 10.6 fL RDW Standard Deviation 39.0 fL RDW Coefficient of Variation 13.8 % Neutrophils % (Manual) 12.3 % Lymphocytes % (Manual) 85.1 % Monocytes % (Manual) 2.6 % Neutrophils # (Manual) 3.04 K/uL Total Absolute Neutrophils 3.04 K/uL Lymphocytes # (Manual) 21.04 K/uL Total Absolute Lymphocytes 21.04 K/uL Monocytes # (Manual) 0.64 K/uL Smudge Cells PRESENT Echinocytes 2+ Sodium Level 138 mmol/L Potassium Level 4.0 mmol/L Chloride Level 100 mmol/L Carbon Dioxide Level 27 mmol/L Anion Gap 11.0 mmol/L Blood Urea Nitrogen 22 mg/dl Creatinine 0.88 mg/dl Est Creatinine Clear Calc Drug Dose 88.0 ml/min Estimated GFR () 109.7 Estimated GFR (Non- 94.7 BUN/Creatinine Ratio 24.7 Random Glucose 158 mg/dl Estimated Average Glucose 212 mg/dl Hemoglobin A1c 9.0 % Calcium Level 9.0 mg/dl Assessment and Plan Assessment and Plan: Mr. Ramiro Hadley is a 56 yo male prisoner with an acute CHF exacerbation, bilateral pulmonary effusion with a left lower lobe subtotal collapse, and likely renal calculi. Individual assessment and plan are as follows: 1. CHF: Acute exacerbation of chronic diastolic heart failure. EF of 25%. Cardiology following and continued recs appreciated. Will continue to diurese daily with spironolactone, additional 40mg furosemide today. Continue KCL 20meq daily, metoprolol succinate 35mg BID, ASA 81mg and atorvastatin 20mg daily. Will hold lisinopril and nitro for now due to frequent hypotension. Patient denying cath. 2. Acute respiratory distress. Secondary to Atelectasis, b/l pulmonary edema, and Subtotal LLL collapse. Improving. Will repeat CXR tomorrow. Will encourage incentive spirometry. Will continue with bid furosemide plus extra 40 today per cardiology. Will consult CT surg tomorrow for eval for thoracentesis. 3. Bronchitis: Acute. breathing treatments with duonebs helping. Will continue and discuss daily LABA inhaler tomorrow. Continue guiafensin 1200mg bid 4. Gram positive bacteremia: Likely artifact. Patient has been afebrile, not clinically showing signs of infection. Will hold off on treatment at this time. 5. Leukocytosis: Persistent. Patient has been diagnosed with CLL in the past. No current treatment. 6. Cirrhosis: Likely, liver appears cirrhotic on CT. Not currently drinking in snf, states does not have HepC. No workup at this time. 7. Nephrolithiasis: 1.1cm stone in L renal pelvis. Likely not cause of pain. Ordered KUB today. Will hold off on tamsulosin at this due due to concerns for worsening hypotension. Toradol for pain prn. Will avoid morphine and other narcotic pain meds. 8. DM: Continue insulin aspart SS. 9. Constipation: Continue senna and polystyrene. 10. Dispo: Continued hospitalization due to pain, SOB, possible cath tomorrow. Normal meals. Continued [facility] stay due to: other (IV diuretics) Discharge planning: other (will return to [facility])
[2016-07-15] MEDS: DOXEPIN HCL 50 MG CAP PO SCH (20:13)
[2016-07-16] VITALS (8 sets, daily range): BP systolic 94–123; BP diastolic 64–74; PULSE 96–110; TEMP 36.5–36.9; O2SAT 91–99
[2016-07-16] MEDS: HEPARIN SOD 5000 UNIT/0.5 ML CARP SQ SCH ×3 (06:04→21:12)
[2016-07-16 08:51] LABS: HEMATOCRIT 46.9 % (42-52); MEAN CELL VOLUME 79.8 fL (80-100); MEAN CORPUSCULAR HEMOGLOBIN 26.7 pg (25-34); MEAN CORPUSCULAR HGB CONC 33.5 g/dl (32-36); PLATELET COUNT 210 K/uL (130-400); RED BLOOD COUNT 5.88 M/uL (4.7-6.1); WHITE BLOOD COUNT 39.13 K/uL (4.8-10.8)
[2016-07-16] MEDS ORDERED: LISINOPRIL 2.5 MG TAB PO SCH (09:00)
[2016-07-16] MEDS ORDERED: POLYETHYLENE (MIRALAX) 17 GM PACK PO SCH (09:00)
[2016-07-16] MEDS: POLYETHYLENE (MIRALAX) 17 GM PACK PO SCH ×2 (09:00→21:01)
[2016-07-16 09:04] LABS: BUN/CREATININE RATIO 27.8 (10-20); CREATININE 0.97 mg/dl (0.60-1.40); POTASSIUM 4.6 mmol/L (3.5-5.1)
[2016-07-16] MEDS: METOPROLOL SUCC 25MG EXT REL TAB PO SCH ×2 (09:10→21:09)
[2016-07-16] MEDS: FUROSEMIDE INJ 40 MG in SYRINGE 0 ML IV SCH (09:10)
[2016-07-16] MEDS: ASPIRIN 81 MG ECTAB PO SCH (09:11)
[2016-07-16] MEDS: SENNA 8.6 MG TAB PO SCH ×2 (09:11→21:05)
[2016-07-16] MEDS: GUAIFENESIN 600 MG TABCR PO SCH ×2 (09:11→21:07)
[2016-07-16] MEDS: ATORVASTATIN 20 MG TAB PO SCH (09:11)
[2016-07-16] MEDS: IPRATROPIUM BROMIDE/ALBUTEROL respimat INH INH SCH ×4 (09:12→21:13)
[2016-07-16] MEDS: POTASSIUM CHLORIDE 20 MEQ TABCR PO SCH ×2 (09:12→21:06)
[2016-07-16] MEDS: SPIRONOLACTONE 25 MG TAB PO SCH ×2 (09:12→21:06)
[2016-07-16] MEDS: INSULIN ASPART 100 UNITS/ML 3 ML PEN SC SCH ×4 (09:18→21:00)
[2016-07-16] MEDS: INSULIN GLARGINE SOLOSTAR 100 UNITS/ML 3 ML PEN SC SCH (09:19)
[2016-07-16 09:27] LABS: CALCIUM 9.4 mg/dl (8.5-10.1)
[2016-07-16 09:30] LABS: BASO % 0.3 %; COMPLETE YES; EOS % 0.9 %; IG% 0.2 %; LYMPH % 82.7 %; LYMPH ABS # 32.37 K/uL (1.2-3.4); MONO % 2.8 %; NEUT % 13.1 %; SMUDGE CELLS PRESENT
--- NOTE | 2016-07-16 09:41 | Progress Note ---
Subjective Date of Service: July 16, 2016. Subjective Pt evaluation today including: conversation w/ patient, physical exam, chart review, lab review, review of inpatient medication list sleeping comfortably awakens to voice and light touch, watched for a little while before awakening, appearing comfortable no grimace/writhing, no appearance of dyspnea, breathing slow and unlabored on awakening, converses freely, denies sob or villarreal of much significance (says yes to these on ROS but doesn't spontaneously admit to either set of sx) - notes mostly a cough when he breathes in or out deeply. no f/c/s. notes "i'm sure you heard i have kidney stones" and complains of L flank pain and notes while clearing, he still has hematuria. notes that he's passed stones in the past as well - maybe last one 3 years ago, relates it felt a little different then but can't really explain how/why. smoked very briefly - maybe 1.5yrs - per his recollection - and years ago. wonders what that has to do with his kidney stones. fairly difficult historian, once starts talking about kidney stones emphasizes severity of pain from this and perseverates on it - difficult to redirect. declines further w/u for cardiac disease - declines [facility] - notes that it's because he doesn't like the idea of having someone cath his heart - when asked why he doesn't really have an underlying explanation besides not wanting a procedure done on his heart - no specific concerns - further relates that he's never had heart problems so doesn't really want a procedure done, seems unaware of the fact that he's here currently wtih cardiac issues. Problem List Medical Problems: (1) Orthopnea Status: Acute (2) Pulmonary edema Status: Acute (3) SOB (shortness of breath) Status: Acute Review of Systems Constitutional: No chills, No fever, No sweats Respiratory: + cough, + dyspnea on exertion, + shortness of breath Abdomen: + see HPI Male : + hematuria, + see HPI somewhat difficult to obtain, says yes to most sx, but as best as can be obtained ROS +/- are entirely as listed above Objective Vital Signs Date Time Temp Pulse Resp B/P Pulse Ox O2 Delivery O2 Flow Rate FiO2 07/16/16 08:10 36.7 96 20 102/71 98 Room Air 07/16/16 04:00 Room Air 07/16/16 03:53 36.7 110 17 96/64 93 Room Air 07/16/16 00:00 Room Air 07/15/16 23:59 36.7 108 20 91/65 96 Room Air 07/15/16 20:01 Room Air 07/15/16 19:49 36.6 110 20 97/66 95 Room Air 07/15/16 16:09 36.6 106 18 99/69 92 Room Air 07/15/16 16:03 Room Air 07/15/16 12:00 36.5 105 18 101/71 98 Room Air 07/15/16 12:00 98 Room Air 07/15/16 11:39 106 16 96 Room Air Physical Exam General Appearance: no apparent distress (see above - sleeping, no distress, when awake no appearance of pain distress, no respiratory distress; does occassionally cough on conversation once awake) Eyes: EOMI ENT: hearing grossly normal Neck: trachea midline Respiratory/Chest: no respiratory distress, no accessory muscle use, + decreased breath sounds (bibasilar, no r/r/w good effort no accessory muscles) Extremities: normal range of motion Neurologic/Psychiatric: slag wheeler II-XII nml as tested, alert Skin: normal color, warm/dry Laboratory Results Last 24 Hours Test 07/15/16 11:32 07/15/16 16:14 07/15/16 20:34 07/16/16 04:44 Bedside Glucose 291 mg/dl 79 mg/dl 237 mg/dl Test 07/16/16 06:55 07/16/16 07:50 Bedside Glucose 194 mg/dl White Blood Count 39.13 K/uL Red Blood Count 5.88 M/uL Hemoglobin 15.7 g/dL Hematocrit 46.9 % Mean Corpuscular Volume 79.8 fL Mean Corpuscular Hemoglobin 26.7 pg Mean Corpuscular Hemoglobin Concent 33.5 g/dl Platelet Count 210 K/uL Mean Platelet Volume 12.0 fL RDW Standard Deviation 40.1 fL RDW Coefficient of Variation 13.9 % Sodium Level 131 mmol/L Potassium Level 4.6 mmol/L Chloride Level 97 mmol/L Carbon Dioxide Level 25 mmol/L Anion Gap 9.0 mmol/L Blood Urea Nitrogen 27 mg/dl Creatinine 0.97 mg/dl Est Creatinine Clear Calc Drug Dose 79.3 ml/min Estimated GFR () 99.3 Estimated GFR (Non- 85.7 BUN/Creatinine Ratio 27.8 Random Glucose 172 mg/dl Assessment and Plan 1. Acute exac of chronic systolic CHF with cardiomyopathy - EF 20-25% - - appearing fairly euvolemic at this point - lungs clear -- quiet at bases due to effusions but no rales. BUN rising, creatinine starting to rise slightly - will reduce lasix to 40mg PO BID and follow - discussed [facility] again - again refuses. d/w pt frankly that he does have heart disease, that further w/u would likely be beneficial, and he could easily have coronary stenoses that could precipitate MT - consulted thoracic for effusions - moderate in size and pt still with dyspnea despite appearing that pulmonary edema has resolved - after discussion with me then thoracic - he refuses at this time - continue Toprol XL - trops normal x 3 - started on Statin and ASA on admission - will need lisinopril once BP more stable - but still not able to add due to BP 2. Leukocytosis - Afebrile - persistent - likely CLL. Patient stated a heme/onc follows him every six months at the snf by telemedicine - continue to monitor - no s/s decompensation right now 3. left flank pain with hematuria and history of nephrolithiasis - doubt that pain is due to stones that are in the kidney, discussed this with pt frankly - possible that the hematuria is from a stone that he passed prior to admission / CT - but no current appearance of stone passing; appears comfortable, exam benign - continue to follow - and d/w pt that if hematuria persists without a clear indication that there are stones passing - may need cysto to r/o malignancy - checked KUB 529, confirmed that no stones in the ureters - appears that there is a degree of pain seeking, focused on getting pain medications despite appearing quite comfortable, once he brings up the topic of stones he will not redirect to other topics - no indication for narcotics currently 4. DM - pharmacy glycemic management consult 6. Moderate bilateral pleural effusion on CT abd - likely transudative from CHF. - appears pulmonary edema is cleared/significantly clearing - since still with shortness of breath, consulted thoracic for tap - pt refused 7. positive blood cultures from admission - one of two samples with gram positive cocci. - Afebrile, CXR no infection, UA no bacteria - repeat blood cultures - NG - likely contaminant 8. Psychotic disorder - continue on home meds 9. DVT prophylaxis - Heparin SQ 10. Full Code dispo - safe/stable for med surg. titrate diuretics to an outpatient regimen, continue to adjust cardiac meds as his vitals will allow - currently can't increase meds further due to BP - but with reduction in lasix, possibly can add ACEi; anticipate return to [facility]2 days Continued [facility] stay due to: other (IV diuretics) Discharge planning: other (will return to [facility])
--- NOTE | 2016-07-16 10:30 | SURGICAL CONSULTATION ---
DATE OF CONSULTATION: 07/16/2016 REASON FOR CONSULTATION: Bilateral pleural effusions. HISTORY OF PRESENT ILLNESS: This is a 56-year-old inmate from [facility], who presents with increasing shortness of breath and dyspnea on exertion. Apparently, it has gotten quite severe. He has bilateral pleural effusions which are at least moderate. He states his shortness of breath has been over the last week in particular and he occasionally would cough up some sethi sputum. He has also lost weight. This patient has psychosis and he is a terrible historian. This is his first admission to [facility]. He has a questionable history of leukemia and actually presented a non-toxic state, but had a white count of 45,000. This currently is 39,110 today. His BNP was over 2000 and a question of congestive heart failure was raised. He had an aggressive diuresis, but states his symptoms have not improved. I need to stress the fact that this patient is a terrible historian. PAST MEDICAL HISTORY: 1. Apparent chronic leukemia (followed by hematology for over 6 months) it is unclear whether this represents CLL or CML. 2. Diabetes mellitus. 3. Short history of cigarette smoking. 4. Hypertension. 5. Psychosis/delusional disorder. MEDICATIONS: 1. Metformin. 2. Doxepin. 3. Glipizide. 4. Vitamin E. 5. Benadryl. 6. Spirolactone. ALLERGIES: THE PATIENT STATES THAT HE IS ALLERGIC TO IV CONTRAST SOCIAL HISTORY: The patient is from the [place] area. He has no children. He states he smoked less than a pack-a-day; however, he was extremely evasive about how long he smoked. He has been incarcerated at [facility] senior living for the last 18 years. He denies alcohol or drug use now. FAMILY MEDICAL HISTORY: The patient's father at 76; he was unclear of why he "because I was in senior living." Mother in her 60s or 70s. He has 2 brothers and 2 sisters. He knows of no health problems. He has no children. REVIEW OF SYSTEMS: CT scan shows a huge gallstone. He has no biliary duct dilatation. He also has bilateral kidney stones, with a large one on the left which appeared to be some hydronephrosis proximal to this. He has bilateral pleural effusions which are homogenous which were compressing his lower lobes. I do not see evidence of pericardial effusion. The patient states his appetite has been "okay," but complaining of epigastric pain. He has had weight loss that is noted. He has had no skin breakdown. He denies any visual or auditory symptoms. He denies palpitations. He is complaining of tightness across his chest when he attempts to breathe deeply. He denies nausea or vomiting. He has had some hematuria with his kidney stones. PHYSICAL EXAMINATION: GENERAL: This is a 5 feet 10 inches, 149 pound white male; who is a very difficult person to get a history from. He tends to carry on "circular discussions" where he continues to go back to the same thing. VITAL SIGNS: He is afebrile with stable vital signs and is not tachypneic. HEENT: His pupils are equally round and reactive. His teeth are actually in good repair. He has no nasolabial flattening. His tongue is midline. NECK: Supple. He has no neck vein distention. He has no carotid bruits or lymphadenopathy. I detect no axillary adenopathy. LUNGS: He has decreased breath sounds in his bases. He has no wheezing. HEART: He has distant heart sounds with a regular rate and rhythm. ABDOMEN: Soft and it is difficult to say if he has tenderness; he is a bit touchy upon touching him in general. EXTREMITIES: He has no peripheral edema. He has easily palpable pulses. He has no joint effusions. NEUROLOGIC: He has no obvious focal deficits. He is awake and alert. ASSESSMENT AND PLAN: Bilateral pleural effusions which are homogenous. There are several different possibilities here. White count of 45,400 could possibly be due to an empyema. It is also possible he has congestive heart failure. I doubt this is due to his renal problems as his creatinine has been normal. It could also be related to his lymphoma. At this point, I would recommend that we perform a thoracentesis. I had a long discussion with the patient. He refuses at this point. He has also refused cardiac catheterization. We will continue to follow along.
[2016-07-16] MEDS: LORAZEPAM 1 MG TAB PO PRN ×2 (11:57→19:12)
--- NOTE | 2016-07-16 12:49 | Pharmacy Progress Note ---
Glycemic Control: Progress Nt Date of Service July 16, 2016. Scope Glycemic Pharmacist consulted on 10/14/16 for glycemic control and to write orders per [facility] inpatient glycemic control protocol. Objective Accuchecks BSG (last 24hrs): Test 07/15/16 16:14 07/15/16 20:34 07/16/16 04:44 07/16/16 06:55 Bedside Glucose 79 mg/dl (70-99) 237 mg/dl (70-99) 194 mg/dl (70-99) Test 07/16/16 07:50 07/16/16 11:12 Random Glucose 172 mg/dl (70-99) Bedside Glucose 242 mg/dl (70-99) Laboratory Data (last 24hrs) Test 07/16/16 04:44 07/16/16 07:50 Anion Gap 9.0 mmol/L BUN/Creatinine Ratio 27.8 Blood Urea Nitrogen 27 mg/dl Creatinine 0.97 mg/dl Potassium Level 4.6 mmol/L Sodium Level 131 mmol/L White Blood Count 39.13 K/uL Red Blood Count 5.88 M/uL Hemoglobin 15.7 g/dL Hematocrit 46.9 % Mean Corpuscular Volume 79.8 fL Mean Corpuscular Hemoglobin 26.7 pg Mean Corpuscular Hemoglobin Concent 33.5 g/dl Platelet Count 210 K/uL Mean Platelet Volume 12.0 fL Neutrophils (%) (Auto) 13.1 % Lymphocytes (%) (Auto) 82.7 % Monocytes (%) (Auto) 2.8 % Eosinophils (%) (Auto) 0.9 % Basophils (%) (Auto) 0.3 % Neutrophils # (Auto) 5.13 K/uL Lymphocytes # (Auto) 32.37 K/uL Monocytes # (Auto) 1.10 K/uL Eosinophils # (Auto) 0.36 K/uL Basophils # (Auto) 0.10 K/uL HbA1c: Test 07/15/16 07:31 Hemoglobin A1c 9.0 % (4.5-5.6) H Recent Pertinent Medications Outpatient Anti-diabetic Regimen: * Glipizide 5mg PO BID * Metformin 1,000mg PO BID The patient is currently receiving: * Basal insulin: Lantus 25 units every 24 hours given in AM * Correctional Insulin: Novolog Correction per scale ACHS Goal Range: Low 110 mg/dL - High 140 mg/dL Correction Factor: 25 mg/dL/unit * Prandial insulin: Per carb ratio of 1 unit per 8 grams CHO consumed * Oral Agents: On hold for admission Risk Factors for Insulin Resistance: * Diet: T2DM Assessment & Plan ASSESSMENT: * 56yo T2DM male with sub-adequate degree of outpatient control on 2 oral antidiabetic agents * Oral agents held on admission per provider, but pt was only initiated on SQ SSI * Pt with sustained hyperglycemia secondary to no basal insulin ordered & no CHO coverage ordered * Patient received 48 units of insulin over the past 24 hours with BSGs ranging from 79 to 291 mg/dL * 25 units of basal insulin + 23 units of bolus insulin * AM Fasting elevated this morning. * Will continue to titrate basal insulin to target a fasting BSG closer to 100 mg/dL * Post-prandial BSGs remain elevated. Will further tighten CF. PLAN FOR INPATIENT GLYCEMIC CONTROL: * Hold outpatient oral diabetes medications * Basal insulin * Increase Lantus to 30 units SQ daily * Titrate to goal fasting BSG of 100-130mg/dl based on age and co-morbidities * Bolus insulin * NovoLog per scale ACHS or Q6hrs while NPO * Goal Range: Low 110 mg/dL - High 164 mg/dL * Tighten Correction Factor: 20 mg/dL/unit * Continue Nutritional / Prandial insulin per carb ratio of 1 unit per 8 grams CHO consumed * Added A1c discharge instructions to be communicated to PCP RECOMMENDATIONS FOR DISCHARGE: * Outpatient regimen providing less than optimal BSG control as evidenced by A1c of 9% on 07/15/16 * Consider maximizing glipizide dosing for better outpatient glycemic control vs adding additional agent * Glipizide (regular release) can be increased to maximum daily dose of 40 mg ( usually split BID for doses greater than 30 mg/day) * Please note that the plan above was derived based on current level of insulin resistance and hospital stress. These recommendations are appropriate for inpatient admission only. Plan of care upon discharge will need to be reassessed to avoid potential outpatient hypo/hyperglycemia. Thank you.
[2016-07-16] MEDS ORDERED: INSULIN GLARGINE SOLOSTAR 100 UNITS/ML 3 ML PEN SC ONE (13:00)
--- NOTE | 2016-07-16 13:06 | CARDIOLOGY PROGRESS NOTE ---
DATE: 07/16/2016 SUBJECTIVE: The patient is resting comfortably in bed without complaints of chest pain or dyspnea. He requests 2 mg of Ativan for his panic attacks. Also, requests Percocet for his "kidney stone pain." Denies PND and orthopnea. OBJECTIVE: VITAL SIGNS: Blood pressure is 94/68 with a regular pulse of 100. Respiratory rate is 16. The patient is afebrile at 36.5 degrees Celsius. Saturation is 97% on room air. NECK: Supple with full carotid upstrokes. No obvious bruits. Jugular venous pressure is flat at 90 degrees. There is no thyromegaly. CARDIOVASCULAR: Reveals a regular rhythm with a normal S1 and S2. An S3 gallop is noted. No murmurs. LUNGS: Note decreased breath sounds at the bases, but no rales, rhonchi, or wheezes. ABDOMEN: Soft and nontender without bruits. EXTREMITIES: Reveal intact radial artery pulses bilaterally. There is no peripheral edema. LABORATORY DATA: CBC notes hemoglobin of 15.7, hematocrit 46.9, white count 39.1, and platelet count 210,000. Electrolytes note a sodium of 131, potassium 4.6, chloride 97, bicarbonate 25, BUN 27, creatinine 0.97, and glucose 172. IMPRESSION AND PLAN: 1. Acute on chronic systolic congestive heart failure -- the patient seems well compensated at this time. Remains on metoprolol succinate at 37.5 mg b.i.d. Failed attempts of lisinopril as it caused significant hypotension. Restart ALYSSA inhibitor when able. 2. Cardiomyopathy - the patient continues to refuse a cardiac catheterization. 3. Sinus tachycardia. 4. Hypotension. 5. Pleural effusions -- seen by Dr. Wood today. The patient refuses thoracentesis. 6. Leukocytosis -- likely chronic lymphocytic leukemia. 7. Diabetes mellitus. 8. Psychosis/delusional disorder.
[2016-07-16] MEDS: FUROSEMIDE 40 MG TAB PO SCH (17:14)
[2016-07-16] MEDS: DOXEPIN HCL 50 MG CAP PO SCH (21:05)
[2016-07-17] MEDS: LORAZEPAM 1 MG TAB PO PRN (01:05)
[2016-07-17] MEDS: HEPARIN SOD 5000 UNIT/0.5 ML CARP SQ SCH (05:40)
[2016-07-17] MEDS: INSULIN ASPART 100 UNITS/ML 3 ML PEN SC SCH ×2 (06:30→12:41)
[2016-07-17 07:00] VITALS: BP 102/71; PULSE 85; TEMP 36.5; O2SAT 96
[2016-07-17 07:26] LABS: HEMATOCRIT 49.1 % (42-52); MEAN CELL VOLUME 78.8 fL (80-100); MEAN CORPUSCULAR HEMOGLOBIN 26.5 pg (25-34); MEAN CORPUSCULAR HGB CONC 33.6 g/dl (32-36); MEAN PLATELET VOLUME 11.5 fL (7.4-10.4); PLATELET COUNT 238 K/uL (130-400); RED BLOOD COUNT 6.23 M/uL (4.7-6.1); WHITE BLOOD COUNT 51.01 K/uL (4.8-10.8)
[2016-07-17 07:35] LABS: BUN/CREATININE RATIO 29.4 (10-20); CALCIUM 9.2 mg/dl (8.5-10.1); CREATININE 1.1 mg/dl (0.60-1.40)
[2016-07-17 08:00] VITALS: O2SAT 96
[2016-07-17 08:32] LABS: BASO % 0.4 %; BASO ABS # 0.18 K/uL (0-0.2); COMPLETE YES; ECHINOCYTES 1+; EOS % 0.6 %; IG% 0.2 %; LYMPH % 84.8 %; LYMPH ABS # 43.27 K/uL (1.2-3.4); MICROCYTOSIS PRESENT; MONO % 2.5 %; NEUT % 11.5 %; SMUDGE CELLS PRESENT; TEAR DROP CELLS 1+
[2016-07-17] MEDS: IPRATROPIUM BROMIDE/ALBUTEROL respimat INH INH SCH ×2 (09:00→12:38)
[2016-07-17] MEDS ORDERED: INSULIN GLARGINE SOLOSTAR 100 UNITS/ML 3 ML PEN SC SCH (09:00)
[2016-07-17] MEDS ORDERED: SPR25 PO (10:32)
[2016-07-17] MEDS ORDERED: INSDGIPEN SC (10:32)
[2016-07-17] MEDS ORDERED: LPT20 PO (10:32)
[2016-07-17] MEDS ORDERED: ASPEC81 PO (10:32)
[2016-07-17] MEDS ORDERED: LSX40 PO (10:32)
[2016-07-17] MEDS ORDERED: TPRSR25 PO (10:32)
[2016-07-17] MEDS ORDERED: NTRSLP4 SL (10:32)
[2016-07-17] MEDS ORDERED: MCRK20 PO (10:32)
--- NOTE | 2016-07-17 10:38 | Discharge Instructions ---
Discharge Instructions Date of Service July 17, 2016. Admission Reason for Admission: Chf (Congestive Heart Failure) Discharge Discharge Diagnosis / Problem: acute on chronic systolic CHF Discharge Goals Goal(s): Diagnostic testing, Therapeutic intervention Activity Recommendations Activity Limitations: resume your previous activity . Instructions / Follow-Up Instructions / Follow-Up acute on chronic systolic CHF -improved with more aggressive med management -concern for underlying ischemic cardiomyopathy but patient refused cath/ ischemic cardiomyopathy workup - so managing empirically as such -would add ALYSSA inhibitor if BP allows - currently has been low enough so as to preclude initiation -has moderate pleural effusions and still complains of shortness of breath but refused thoracentesis -would continue med management, if more short of breath or hypoxia would then repeat CXR and give repeat consideration to thoracentesis -follow periodic BMP - next one by the end of the week, then as clinically warranted thereafter -ongoing follow up with PCP at long-term, and with cardiology - next visit ~4 weeks nephrolithiasis/hematuria -had hematuria - but imaging did NOT show ureterolithiasis, just nephrolithiasis that would not be responsible for sx. 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 * Use the same scale. * Wear the same amount of clothing. * Write your weight down on a chart. * Call your Primary Care doctor if you gain more than 2-3 pounds in 1-2 days. MEDICATIONS * Use this discharge instruction sheet for medication instructions. * Take your medications at the time your doctor ordered. * Do not skip a dose of your medicines. * If you miss a dose of medicine, take it as soon as possible, but DO NOT DOUBLE A DOSE. * Read your medicine information when you get home. * Know all of the side effects of your medicine. If in doubt, ask your pharmacist * Call your Primary Care doctor's office if you have any side effects. * Be sure all of your doctors know what medicine and herbs you take (including cold, flu, and herbal medicine). Take the following with you to your follow-up doctor appointments: * Weight Chart * Medication List * List of questions Do not drink excessive alcohol, beer or wine. Current Hospital Diet Patient's current hospital diet: AHA Diet (Heart Healthy), Diabetes Type 2 Diet Discharge Diet Recommended Diet: Low Sodium Diet (2gm Na) (strict less than 2g sodium restriction), Diabetes Type 2 Diet (avoid simple/processed/starchy carbs as best as possible) Pending Studies Studies pending at discharge: no Laboratory Results Hemoglobin A1c Test 07/15/16 07:31 Range/Units Estimated Average Glucose 212 mg/dl Hemoglobin A1c 9.0 H 4.5-5.6 % Lipid Panel Test 07/13/16 05:05 Range/Units Triglycerides Level 89 0-150 mg/dl Cholesterol Level 103 0-200 mg/dl HDL Cholesterol 39 mg/dl Cholesterol/HDL Ratio 2.6 LDL Cholesterol, Calculated 46 mg/dl Medical Emergencies . Who to Call and When: Call 911 or go to the Emergency Room if: * If at any time you feel your situation is an emergency * You have tightness or pain in your chest that does not go away with rest or Nitroglycerin * You are very short of breath even with rest . Non-Emergent Contact Non-Emergency issues call your: Primary Care Provider, Insurance Auditor . . "Provider Documentation" section prepared by Yoandy Tariq. . VTE Core Measure Inpt VTE Proph given/why not?: Unfractionated heparin SQ
[2016-07-17] MEDS: ATORVASTATIN 20 MG TAB PO SCH (12:33)
[2016-07-17] MEDS: GUAIFENESIN 600 MG TABCR PO SCH (12:33)
[2016-07-17] MEDS: ASPIRIN 81 MG ECTAB PO SCH (12:34)
[2016-07-17] MEDS: SPIRONOLACTONE 25 MG TAB PO SCH (12:35)
[2016-07-17] MEDS: POTASSIUM CHLORIDE 20 MEQ TABCR PO SCH (12:35)
[2016-07-17] MEDS: FUROSEMIDE 40 MG TAB PO SCH (12:35)
[2016-07-17] MEDS: SENNA 8.6 MG TAB PO SCH (12:37)
[2016-07-17] MEDS: METOPROLOL SUCC 25MG EXT REL TAB PO SCH (12:37)
--- NOTE | 2016-07-17 12:55 | CARDIOLOGY PROGRESS NOTE ---
DATE: 07/17/2016 SUBJECTIVE: Mr. Francois is resting comfortably in bed without complaints of chest pain or dyspnea. Continues to seek Ativan and Percocet. OBJECTIVE: VITAL SIGNS: Blood pressure is 102/70 with a regular pulse of 85. Respiratory rate is 20. The patient is afebrile at 36.5 degrees Celsius. Saturations 96% on room air. NECK: Supple with full carotid upstrokes. There are no carotid bruits. Jugular venous pressure is flat at 90 degrees. There is no thyromegaly. CARDIOVASCULAR: Reveals a regular rhythm with normal S1 and S2. An S3 gallop is noted. No murmurs. LUNGS: Note decreased breath sounds at the bases but no rales, rhonchi, or wheezes. ABDOMEN: Soft, nontender without bruits. EXTREMITIES: Reveal intact radial artery pulses bilaterally. There is no peripheral edema. DATA: CBC notes hemoglobin of 16.5, hematocrit 49.1, white count 51.0, and platelet count of 238,000. Electrolytes note a sodium of 131, potassium 5.0, chloride 98, bicarb 23, BUN 32, creatinine 1.1, glucose 120. teletypesetter monitor notes occasional PACs and PVCs. EKG notes sinus tachycardia with a left atrial abnormality along with a left axis deviation. IMPRESSION AND PLAN: 1. Acute on chronic systolic congestive heart failure - patient is compensated at this time. Remains on metoprolol succinate 37.5 mg b.i.d. Did fail attempts of starting lisinopril as it cause significant hypotension. Would recommend restarting ALYSSA inhibitor when able. He is down on furosemide 40 mg b.i.d. 2. Cardiomyopathy - patient continues to refuse cardiac catheterization. 3. Sinus tachycardia - continue beta blockade. 4. Hypotension. 5. Pleural effusions - patient refuses thoracentesis. 6. Leukocytosis - likely chronic lymphocytic leukemia. 7. Diabetes mellitus. 8. Psychosis/delusional disorder.
--- NOTE | 2016-07-17 17:31 | Discharge Summary ---
Discharge Summary Date of Service July 17, 2016. Discharge Summary Admission Date: July 12, 2016 at 20:08 Discharge Date: July 17, 2016 Discharge Disposition: Home with services ([facility]) Principal Diagnosis: acute on chronic systolic CHF Procedures: Interpretation Summary Name: MOLINA LEMUS [id number] Study Date: 07/13/2016 01:05 PM BP: 95/58 mmHg Patient Location: [facility]\S\[id number]\S\1 HR: 106 : 1960 (M/d/yyyy) Gender: Male Height: 70 in Age: 56 yrs Ethnicity: [place] Weight: 165 lb Ordering Physician: Oscar Cai Referring Physician: Katie SPEAR Performed By: Eh Kelly RDCS Reason For Study: CHF BSA: 1.9 m2 -- Conclusions -- 1. Mildly dilated left ventricle with severely reduced systolic function. EF 25 -30%. Global hypokinesis. No left ventricular hypertrophy. 2. The right ventricular systolic function is mildly reduced. 3. There is mild to moderate mitral regurgitation. 4. Pleural effusion. 5. Tissue Doppler suggests elevated left atrial pressure. 6. No prior study available for comparison. Procedure Details A complete two-dimensional transthoracic echocardiogram was performed (2D, M- mode, Doppler and color flow Doppler). The study was technically adequate. Left Ventricle Mildly dilated left ventricle with severely reduced systolic function. EF 25-30 %. Global hypokinesis. No left ventricular hypertrophy. Right Ventricle The right ventricle is normal size. The right ventricular systolic function is mildly reduced. The right ventricular systolic function is reduced as assessed by tricuspid annular plane systolic excursion (TAPSE) (TAPSE <1.6 cm). Atria The left atrial size is normal. Right atrial size is normal. There is no evidence of atrial septal defect, but resolution does not allow assessment for a patent foramen ovale. Mitral Valve The mitral valve leaflets appear normal. There is no evidence of stenosis, fluttering, or prolapse. There is mild to moderate mitral regurgitation. Tricuspid Valve The tricuspid valve is not well visualized, but is grossly normal. There is no tricuspid stenosis. Significant tricuspid regurgitation is absent. Aortic Valve The aortic valve is normal in structure and function. The aortic valve is trileaflet. No hemodynamically significant valvular aortic stenosis. No aortic regurgitation is present. Pulmonic Valve The pulmonary valve is inadequately visualized, but the Doppler data is adequate for interpretation. There is no pulmonic valvular stenosis. There is no significant pulmonary regurgitation. Great Vessels The aortic root is normal size. Blunted pulmonary venous flow pattern. Pericardium/Pleural There is no pericardial effusion. Pleural effusion. Great Vessels Mildly dilated IVC with normal inspiratory collapse recommended left heart cath, pt refused recommended thoracentesis, pt refused Consultations: cardiology thoracic surgery Discharge Exam Physical Exam: General Appearance: no apparent distress (sleeping, breathing unlabored, no accessory muscles no cyanosis absolutely no apppearance of respiratory distress) , + pertinent finding (laying still and comfortable, absolutely no appearance of pain distress) Skin: normal color Hospital Course 1. Acute exac of chronic systolic CHF with cardiomyopathy - EF 20-25% - - appearing fairly euvolemic at this point -med management - see above med list. follow up BMP at end of week to ensure diuresis adequate - will need lisinopril once BP more robust - but still not able to add due to BP - follow at [facility] - several times by several specialties, LHC was recommended and rationale explained- he refused - several times by several specialties thoracentesis was recommended, and rationale explained - he refused ---with his demeanor, he has shown significant behaviors suspicious for secondary gain motivations. i would expect him to complain of dyspnea frequently. thoracic surgery noted they are more than happy to see him as outpt expedited for thoracentesis if it becomes necessary. also, unfortunately due to his behaviors for secondary gain, objective parameters (pulse ox, lung sounds, appearance of distress, vital signs) have been far more helpful at gauging severity of illness and response to treatment than his subjective HPI/ ROS. 2. Leukocytosis - Afebrile - persistent - likely CLL. Patient stated a heme/onc follows him every six months at the [facility] by telemedicine - continue to monitor - no s/s decompensation right now - ongoing f/u w heme/onc 3. left flank pain with hematuria and history of nephrolithiasis - doubt that pain is due to stones that are in the kidney, discussed this with pt frankly - possible that the hematuria is from a stone that he passed prior to admission / CT - but no current appearance of stone passing; appears comfortable, exam benign - continue to follow - and d/w pt that if hematuria persists without a clear indication that there are stones passing - may need cysto to r/o malignancy - repeat UA/micro ~4wks - checked KUB 529, confirmed that no stones in the ureters - appears that there is a degree of pain seeking, focused on getting pain medications despite appearing quite comfortable, once he brings up the topic of stones he will not redirect to other topics - no indication for narcotics currently 4. DM - A1c 9% - metformin resumed, lantus instead of sulfonylurea 6. Moderate bilateral pleural effusion on CT abd - likely transudative from CHF. - appears pulmonary edema is cleared - since still with shortness of breath, consulted thoracic for tap - pt refused 7. positive blood cultures from admission - one of two samples with gram positive cocci. - Afebrile, CXR no infection, UA no bacteria - repeat blood cultures - no growth - likely contaminant 8. Psychotic disorder - continue on home meds 9. DVT prophylaxis - Heparin SQ 10. Full Code dispo - on PO med management and refusing any further procedural treatment, on room air and appearing stable for days -- safe/stable to return to [facility] for ongoing med management - titrate lasix//follow BMP//add ACEi when possible, otherwise as above attempted to call [facility] to sign out case - particularly because of the difficulties with refusing what likely would've been beneficial procedures, and with his secondary gain behaviors making it highly likely he'll seek reasons for readmission. if questions, please call [phone] to discuss case, thank you Total Time Spent: Less than 30 minutes This includes examination of the patient, discharge planning, medication reconciliation, and communication with other providers. Discharge Instructions Please refer to the electronic Patient Visit Report (Discharge Instructions) for additional information. Additional Copies To Danielle Holland M.D.
[2016-07-17 18:03] LABS: ALBUMIN 3.8 G/DL (3.8-4.8); GAMMA GLOBULIN 0.4 G/DL (0.8-1.7); TOTAL PROTEIN 5.9 G/DL (6.2-8.3)
--- NOTE | 2016-07-17 18:32 | SURGERY PROGRESS NOTE ---
DATE: 07/17/2016 SUBJECTIVE: The patient was seen today. He is walking around in his room and washing up without oxygen and has good saturations. The patient complained of terrible shortness of breath. Every conversation with this patient ends with him asking for narcotics. I offered to drain his pleural effusions; however, he again refused. Initially, said he would be glad to do it but he would not sign the permit. I do not believe this patient is capable of making decisions for himself. He was sent back to the assisted. We have left information so that if he decides that he would like this placed and signs the permit, we will be glad to do this on an outpatient basis.
[2016-07-18 13:41] LABS: ALBUMIN % 23.33 %; ALPHA-2-GLOBULIN % 9.28 %; BETA GLOBULIN % 56.11 %; CREATININE UR 53 MG/DL (20-370); GAMMA GLOBULIN % 9.56 %
== END 2016-07-17 14:22 | DRG 292 ==
LOC: ENRESERVDT → ENRESERVTM → C.EDC 15:34 → C.2T 20:08 → C.MS2W 07-16 10:54
PROVIDERS: ADMIT Internal Medicine; ATTEND Family Medicine
DX: I50.23 Acute on chronic systolic (congestive) heart failure (principal); C95.90 Leukemia, unspecified not having achieved remission; I42.9 Cardiomyopathy, unspecified; E11.9 Type 2 diabetes mellitus without complications; I10 Essential (primary) hypertension; F29 Unspecified psychosis not due to a substance or known physiological condition; I34.0 Nonrheumatic mitral (valve) insufficiency; Z87.442 Personal history of urinary calculi

== ENCOUNTER → 2016-07-19 | Day surgery (SDC) | payer OTHER ==
[~2016-07-19] MED LIST: ACET325T96 PO; ASPEC81 PO; DIPH50TA10 PO; DOXE50CA3 PO; INSDGIPEN SC; LPT20 PO; LSX40 PO; MCRK20 PO; METF-384 PO; MULTTAB PO; NTRSLP4 SL; POLY335019 PO; SENN-61 PO; SPR25 PO; TPRSR25 PO; VITACAP37 PO
[2016-07-19 09:35] VITALS: BP 98/76; PULSE 99; TEMP 36.6; O2SAT 100
--- NOTE | 2016-07-19 09:56 | Discharge Instructions ---
Discharge Instructions Date of Service Jul 19, 2016. Visit Reason for Visit: Pleural Effusion Discharge Discharge Diagnosis / Problem: Resolved Bilateral pleural effusions Discharge Goals Goal(s): Learn about illness Activity Recommendations Activity Limitations: resume your previous activity Anesthesia . Post Anesthesia Instructions: If you have had General Anesthesia or IV Sedation: * Do not drive today. * Resume driving when surgeon permits. * Do not make important decisions or sign legal documents today. * Call surgeon for: 1. Temperature elevations greater than 101 degrees F. 2. Uncontrollable pain. 3. Excessive bleeding. 4. Persistent nausea and vomiting. 5. Medication intolerance (nausea, vomiting or rash). * For nausea and vomiting use only clear liquids such as: tea, soda, bouillon until nausea subsides, then gradually increase diet as tolerated. * If you have any concerns or questions, call your surgeon's office. If physician is unavailable and it is an emergency, call 911 or go to the nearest emergency room. . Diet Recommendations Recommended Home Diet: resume previous diet Procedures Procedures Performed: CXR performed showing resolved pleural effusions Pending Studies Studies pending at discharge: no Medical Emergencies . Who to Call and When: Medical Emergencies: If at any time you feel your situation is an emergency, please call 911 immediately. . Non-Emergent Contact Non-Emergency issues call your: Primary Care Provider . . "Provider Documentation" section prepared by James Cm. .
--- NOTE | 2016-07-19 10:01 | DIAGNOSTIC IMAGING REPORT ---
CHEST ONE VIEW PORTABLE CLINICAL HISTORY: pleural effusion COMPARISON STUDY: 07/12/2016 FINDINGS: The heart is mildly enlarged. There is been near complete resolution of previous described congestive failure. There is been resolution of the left pleural effusion. There is a possible small subpulmonic right pleural effusion. There is no focal pulmonary consolidation.[ IMPRESSION: Near complete interval resolution of the previous described congestive failure. Resolution of the left pleural effusion. Possible small subpulmonic right pleural effusion. Electronically signed by: Marco De Dios M.D. 07/19/2016 9:59 AM Dictated Date/Time: 07/19/2016 9:58 AM
--- NOTE | 2016-07-19 17:18 | PROGRESS NOTE ---
DATE: 07/19/2016 SUBJECTIVE: Mr. Francois is a 56-year-old patient who is incarcerated at [facility], who presented with large bilateral pleural effusions and shortness of breath, although he was not hypoxic. The patient is delusional and had psychiatric issues and he agreed to a thoracentesis last week on 2 different occasions, but then refused when we got ready to do it. He went back to [facility] and physician there called me yesterday and said the patient was markedly short of breath even though he was not hypoxic. He asked that if we could perform this as an outpatient. The patient presented to the medical treatment unit on 07/19/2016 and we set him up for a thoracentesis. He did agree. I then went and did an ultrasound at bedside to balwinder the fluid and I did not see any fluid. I did a careful evaluation of both pleural cavities. CT scan of his abdomen which included his lower chest from 5 days ago on 07/14/2016 showed a large amount of homogenous fluid. We got another x-ray today and I see no fluid whatsoever. Sharp diaphragmatic sulci. At this point, I canceled the procedure and send him back to [facility].
== END | disposition home or self-care (01) ==
LOC: C.ACU 09:08
PROVIDERS: ATTEND Surgery
DX: J90 Pleural effusion, not elsewhere classified (principal); Z53.8 Procedure and treatment not carried out for other reasons

== ENCOUNTER → 2016-10-28 | Outpatient (CLI) | payer OTHER ==
[2016-10-29 00:53] LABS: BLOOD UREA NITROGEN 15 mg/dl (7-18); BUN/CREATININE RATIO 15.5 (10-20); CALCIUM 9.2 mg/dl (8.5-10.1); CARBON DIOXIDE 27 mmol/L (21-32); CHLORIDE 108 mmol/L (98-107); CREATININE 0.94 mg/dl (0.60-1.40); GLUCOSE 81 mg/dl (70-99); POTASSIUM 4.4 mmol/L (3.5-5.1); SODIUM 141 mmol/L (136-145)
== END ==
LOC: C.LABSPEC 11:10
PROVIDERS: ATTEND Physician Assistant Medical
DX: N23 Unspecified renal colic (principal)

== ENCOUNTER → 2016-12-04 | Outpatient (CLI) | payer OTHER | END | disposition home or self-care (01) | LOC: C.LABSPEC 17:12 | PROVIDERS: ATTEND Urology | DX: R31.29 Other microscopic hematuria (principal); N13.30 Unspecified hydronephrosis; N20.0 Calculus of kidney ==

== ENCOUNTER 2022-07-10 07:48 | Inpatient (IN) ==
--- NOTE | 2022-07-10 08:15 | Emergency Department Note ---
Impression & Plan Shortness of breath, Tachycardia, Treatment declined by patient ED Provider Note NAME: MOLINA [id number] CZAJKVIMAL AGE: 62 SEX: M : 1960 ARRIVES VIA: Ambulance INFORMANT: Patient, EMS ED PROVIDER(S): Yoandy Barboza DO CHIEF COMPLAINT: Shortness of breath HPI: Patient is a 62-year-old male with a past medical history of CHF and diabetes who presents ER for shortness of breath. He notes this has been getting worse over the past 6 months. Got significant worse over the past week. He notes he has chest wall pain has been present for the past several weeks. He notes the shortness of breath is worse with lying flat. Has been having some increased swelling of his legs. He notes his belly has been swollen for several months and has not really changed much recently. He notes sometimes he feels like he cannot catch his breath. PAST MEDICAL HISTORY:See Below PAST SURGICAL HISTORY:See Below FAMILY HISTORY:See Below SOCIAL HISTORY:See Below HOME MEDICATIONS:See Below ALLERGIES:See Below VITALS:See Below PHYSICAL EXAMINATION: GENERAL: Sitting up in bed, alert, ill-appearing, disheveled, slightly dyspneic with conversation EYE EXAM: normal conjunctiva. OROPHARYNX: no exudate, no erythema, lips, buccal mucosa, and tongue normal and mucous membranes are moist NECK: supple, no nuchal rigidity, no adenopathy, non-tender LUNGS: Diminished bilateral. Normal chest wall mechanics HEART: no murmurs, S1 normal and S2 normal ABDOMEN: abdomen soft, non-tender, normo-active bowel sounds, no masses, distended with pitting edema BACK: Back is symmetrical on inspection and there is no deformity, no midline tenderness, no CVA tenderness. SKIN: no rashes and no bruising UPPER EXTREMITIES: upper extremities are grossly normal. LOWER EXTREMITIES: Pitting edema bilateral NEURO EXAM: Awake alert following commands but hyper focused on history of CHF, cranial nerves II through XII are intact, normal speech, no weakness of the upper or lower extremity MEDICAL DECISION MAKING: Patient is a 62-year-old male who presents ER with concerns of CHF. Significant delay in care as patient declined multiple treatment interventions and was eventually deemed not to be competent to make decisions/declined treatment per psychiatry. IV was established blood work was obtained. Labs show no significant leukocytosis or anemia. BMP was fairly unremarkable. Mag was slightly low at 1.9. This was repleted through the IV. Troponin was normal. T. bili at 2.4. No transaminitis. Lipase was normal. COVID-negative. Dimer was elevated at 1540. Chest x-ray was unremarkable. Does have diffuse pitting edema in the lower extremities tracking up to the abdomen. EKG was consistent with a sinus tachycardia. Patient declined CTs of the chest for PE as well as CT of the belly. He was discussed with the hospitalist that he was agreeable to coming in. He was given Lasix. Patient has been hyper focused on CHF. He was evaluated by Oleg Summers from the hospital service. He spoke with the [facility] as well as psychiatry who evaluated him and does not believe that he has capacity make this decision not to get any imaging. He was admitted to the hospital service during this evaluation by psychiatry. Orders for the CT of the chest and abdomen with pelvis with runoff still pending as they have not been completed as he was declining to have these done. He is currently going to get Zyprexa and please see the hospitalist note for further management and treatment Triage Nursing notes reviewed. Limited review of prior medical records performed Vital Signs: reviewed and remarkable for tachycardic and tachypneic Differential diagnosis: Differential diagnoses includes but is not limited to pneumonia, bronchitis, C OPD/Asthma exacerbation, pneumothorax, pulmonary embolism, congestive heart failure, acute coronary syndrome ER treatment provided: See below Diagnostics interpreted by me include EKG and cardiac monitoring as listed below: -Cardiac Monitoring: An order was placed for continuous cardiac monitoring. The monitor shows a rate of 122 with sinus rhythm. -ECG: Sinus tachycardia rate of 132 PVCs QTc 426 -Laboratory studies:Interpreted by me as stated above in MDM and shown below. Imaging studies: Xrays: As interpreted by me: Portable AP upright 1 view chest shows no pneumonia CTs show: CT of the chest as well as abdomen pelvis were declined and delayed but will be performed as patient was evaluated by psychiatry and deemed to not be competent to make that decision/declined Consultation(s): Discussed with the hospitalist as described above Procedures:none Critical Care: None Past Med/Surg History Social History Smoking Status: Former smoker Feels Safe at Home: Yes Allergies Allergies Allergy/AdvReac Type Severity Reaction Status Date / Time IV dye Allergy Unknown Patient Uncoded 07/13/16 15:20 unsure of reaction but recalls being treated. Home Meds Home Medications Medication Instructions Recorded Confirmed doxepin 50 mg capsule 50 mg PO HS #0 caps 07/12/16 07/10/22 metformin 1,000 mg tablet 1,000 mg PO BID #0 tabs 07/12/16 07/10/22 atorvastatin 10 mg tablet 20 mg PO DAILY #0 tabs 03/25/17 07/10/22 glipizide 5 mg tablet 5 mg PO BID #0 tabs 03/25/17 07/10/22 metoprolol tartrate 25 mg tablet 0 mg PO BID #0 tabs 03/25/17 07/10/22 bumetanide 1 mg tablet 1 mg PO DAILY 07/10/22 07/10/22 insulin regular human 100 unit/mL 0 sliding scale dose subcut 07/10/22 07/10/22 injection solution (Novolin R USEASDIRECTD Regular U-100 Insulin) Results & Data (ED) Vital Signs Vital Signs - 24 hr 07/10/22 07:49 07/10/22 08:13 07/10/22 08:06 Temperature Source Oral Pulse Rate 130 H Pulse Rate [Apical] Pulse Rate from SpO2 Sensor Respiratory Rate 30 H Respiratory Effort / Characteristics Respiratory Depth Respiratory Pattern Blood Pressure 146/98 H Blood Pressure [Left Arm] Blood Pressure Mean 114 Blood Pressure Mean [Left Arm] Pulse Oximetry 96 97 Oxygen Delivery Method Room Air Room Air Room Air Oxygen Flow Rate Sepsis Recent Fever Within 48 Hours No Sepsis New/Unexplained Change in Mental Status No Sepsis Action Taken by Nursing No Action Required 07/10/22 08:43 07/10/22 09:45 07/10/22 10:00 Temperature Source Pulse Rate 125 H Pulse Rate [Apical] 134 H 129 H Pulse Rate from SpO2 Sensor Respiratory Rate 24 23 Respiratory Effort / Characteristics Non-Labored Spontaneous Non-Labored Spontaneous Respiratory Depth Normal Normal Respiratory Pattern Regular Blood Pressure Blood Pressure [Left Arm] 144/100 H 145/96 H Blood Pressure Mean Blood Pressure Mean [Left Arm] 114 112 Pulse Oximetry 99 98 Oxygen Delivery Method Nasal Cannula Room Air Oxygen Flow Rate 2 Sepsis Recent Fever Within 48 Hours Sepsis New/Unexplained Change in Mental Status Sepsis Action Taken by Nursing 07/10/22 08:50 07/10/22 12:45 07/10/22 09:20 Temperature Source Pulse Rate 140 H 136 H Pulse Rate [Apical] Pulse Rate from SpO2 Sensor 124 H Respiratory Rate 27 H Respiratory Effort / Characteristics Non-Labored Spontaneous Respiratory Depth Normal Respiratory Pattern Regular Blood Pressure Blood Pressure [Left Arm] Blood Pressure Mean Blood Pressure Mean [Left Arm] Pulse Oximetry 98 Oxygen Delivery Method Room Air Oxygen Flow Rate Sepsis Recent Fever Within 48 Hours Sepsis New/Unexplained Change in Mental Status Sepsis Action Taken by Nursing 07/10/22 09:20 07/10/22 09:25 07/10/22 09:25 Temperature Source Pulse Rate 37 L Pulse Rate [Apical] Pulse Rate from SpO2 Sensor 131 H Respiratory Rate 21 Respiratory Effort / Characteristics Respiratory Depth Respiratory Pattern Blood Pressure 148/107 H 146/107 H Blood Pressure [Left Arm] Blood Pressure Mean 128 113 Blood Pressure Mean [Left Arm] Pulse Oximetry 99 Oxygen Delivery Method Oxygen Flow Rate Sepsis Recent Fever Within 48 Hours Sepsis New/Unexplained Change in Mental Status Sepsis Action Taken by Nursing 07/10/22 09:30 07/10/22 09:30 07/10/22 09:35 Temperature Source Pulse Rate 133 H Pulse Rate [Apical] Pulse Rate from SpO2 Sensor 134 H Respiratory Rate 16 Respiratory Effort / Characteristics Respiratory Depth Respiratory Pattern Blood Pressure 156/113 H 158/107 H Blood Pressure [Left Arm] Blood Pressure Mean 114 122 Blood Pressure Mean [Left Arm] Pulse Oximetry 99 Oxygen Delivery Method Oxygen Flow Rate Sepsis Recent Fever Within 48 Hours Sepsis New/Unexplained Change in Mental Status Sepsis Action Taken by Nursing 07/10/22 09:35 07/10/22 09:40 07/10/22 09:40 Temperature Source Pulse Rate 122 H 126 H Pulse Rate [Apical] Pulse Rate from SpO2 Sensor 131 H 133 H Respiratory Rate 29 H 19 Respiratory Effort / Characteristics Respiratory Depth Respiratory Pattern Blood Pressure 148/103 H Blood Pressure [Left Arm] Blood Pressure Mean 117 Blood Pressure Mean [Left Arm] Pulse Oximetry 95 98 Oxygen Delivery Method Oxygen Flow Rate Sepsis Recent Fever Within 48 Hours Sepsis New/Unexplained Change in Mental Status Sepsis Action Taken by Nursing 07/10/22 09:45 07/10/22 09:45 07/10/22 09:50 Temperature Source Pulse Rate 132 H Pulse Rate [Apical] Pulse Rate from SpO2 Sensor 124 H Respiratory Rate 24 Respiratory Effort / Characteristics Respiratory Depth Respiratory Pattern Blood Pressure 144/100 H 155/96 H Blood Pressure [Left Arm] Blood Pressure Mean 118 116 Blood Pressure Mean [Left Arm] Pulse Oximetry 99 Oxygen Delivery Method Oxygen Flow Rate Sepsis Recent Fever Within 48 Hours Sepsis New/Unexplained Change in Mental Status Sepsis Action Taken by Nursing 07/10/22 09:50 07/10/22 09:55 07/10/22 09:55 Temperature Source Pulse Rate 133 H 133 H Pulse Rate [Apical] Pulse Rate from SpO2 Sensor 133 H 133 H Respiratory Rate 19 24 Respiratory Effort / Characteristics Respiratory Depth Respiratory Pattern Blood Pressure 148/98 H Blood Pressure [Left Arm] Blood Pressure Mean 122 Blood Pressure Mean [Left Arm] Pulse Oximetry 99 98 Oxygen Delivery Method Oxygen Flow Rate Sepsis Recent Fever Within 48 Hours Sepsis New/Unexplained Change in Mental Status Sepsis Action Taken by Nursing 07/10/22 10:00 07/10/22 10:00 07/10/22 10:05 Temperature Source Pulse Rate 131 H Pulse Rate [Apical] Pulse Rate from SpO2 Sensor 132 H Respiratory Rate 21 Respiratory Effort / Characteristics Respiratory Depth Respiratory Pattern Blood Pressure 145/96 H 152/102 H Blood Pressure [Left Arm] Blood Pressure Mean 110 116 Blood Pressure Mean [Left Arm] Pulse Oximetry 97 Oxygen Delivery Method Oxygen Flow Rate Sepsis Recent Fever Within 48 Hours Sepsis New/Unexplained Change in Mental Status Sepsis Action Taken by Nursing 07/10/22 10:05 07/10/22 10:10 07/10/22 10:10 Temperature Source Pulse Rate 147 H 130 H Pulse Rate [Apical] Pulse Rate from SpO2 Sensor 132 H 121 H Respiratory Rate 24 27 H Respiratory Effort / Characteristics Respiratory Depth Respiratory Pattern Blood Pressure 152/95 H Blood Pressure [Left Arm] Blood Pressure Mean 118 Blood Pressure Mean [Left Arm] Pulse Oximetry 97 98 Oxygen Delivery Method Oxygen Flow Rate Sepsis Recent Fever Within 48 Hours Sepsis New/Unexplained Change in Mental Status Sepsis Action Taken by Nursing 07/10/22 10:15 07/10/22 10:15 07/10/22 10:20 Temperature Source Pulse Rate 130 H Pulse Rate [Apical] Pulse Rate from SpO2 Sensor 130 H Respiratory Rate 25 H Respiratory Effort / Characteristics Respiratory Depth Respiratory Pattern Blood Pressure 151/96 H 141/98 H Blood Pressure [Left Arm] Blood Pressure Mean 120 121 Blood Pressure Mean [Left Arm] Pulse Oximetry 97 Oxygen Delivery Method Oxygen Flow Rate Sepsis Recent Fever Within 48 Hours Sepsis New/Unexplained Change in Mental Status Sepsis Action Taken by Nursing 07/10/22 10:20 07/10/22 10:25 07/10/22 10:25 Temperature Source Pulse Rate 128 H 113 H Pulse Rate [Apical] Pulse Rate from SpO2 Sensor 122 H 127 H Respiratory Rate 24 22 Respiratory Effort / Characteristics Respiratory Depth Respiratory Pattern Blood Pressure 153/98 H Blood Pressure [Left Arm] Blood Pressure Mean 113 Blood Pressure Mean [Left Arm] Pulse Oximetry 98 97 Oxygen Delivery Method Oxygen Flow Rate Sepsis Recent Fever Within 48 Hours Sepsis New/Unexplained Change in Mental Status Sepsis Action Taken by Nursing 07/10/22 10:30 07/10/22 10:30 07/10/22 10:35 Temperature Source Pulse Rate 123 H Pulse Rate [Apical] Pulse Rate from SpO2 Sensor 131 H Respiratory Rate 19 Respiratory Effort / Characteristics Respiratory Depth Respiratory Pattern Blood Pressure 141/101 H 149/100 H Blood Pressure [Left Arm] Blood Pressure Mean 115 115 Blood Pressure Mean [Left Arm] Pulse Oximetry 97 Oxygen Delivery Method Oxygen Flow Rate Sepsis Recent Fever Within 48 Hours Sepsis New/Unexplained Change in Mental Status Sepsis Action Taken by Nursing 07/10/22 10:35 07/10/22 10:40 07/10/22 10:40 Temperature Source Pulse Rate 130 H 130 H Pulse Rate [Apical] Pulse Rate from SpO2 Sensor 130 H 130 H Respiratory Rate 27 H 25 H Respiratory Effort / Characteristics Respiratory Depth Respiratory Pattern Blood Pressure 139/102 H Blood Pressure [Left Arm] Blood Pressure Mean 116 Blood Pressure Mean [Left Arm] Pulse Oximetry 95 96 Oxygen Delivery Method Oxygen Flow Rate Sepsis Recent Fever Within 48 Hours Sepsis New/Unexplained Change in Mental Status Sepsis Action Taken by Nursing 07/10/22 10:45 07/10/22 10:45 07/10/22 10:50 Temperature Source Pulse Rate 129 H Pulse Rate [Apical] Pulse Rate from SpO2 Sensor 129 H Respiratory Rate 26 H Respiratory Effort / Characteristics Respiratory Depth Respiratory Pattern Blood Pressure 156/99 H 144/107 H Blood Pressure [Left Arm] Blood Pressure Mean 123 129 Blood Pressure Mean [Left Arm] Pulse Oximetry 96 Oxygen Delivery Method Oxygen Flow Rate Sepsis Recent Fever Within 48 Hours Sepsis New/Unexplained Change in Mental Status Sepsis Action Taken by Nursing 07/10/22 10:50 07/10/22 10:56 07/10/22 10:56 Temperature Source Pulse Rate 133 H 133 H Pulse Rate [Apical] Pulse Rate from SpO2 Sensor 133 H 132 H Respiratory Rate 31 H 24 Respiratory Effort / Characteristics Respiratory Depth Respiratory Pattern Blood Pressure 154/120 H Blood Pressure [Left Arm] Blood Pressure Mean 133 Blood Pressure Mean [Left Arm] Pulse Oximetry 97 96 Oxygen Delivery Method Oxygen Flow Rate Sepsis Recent Fever Within 48 Hours Sepsis New/Unexplained Change in Mental Status Sepsis Action Taken by Nursing 07/10/22 11:00 07/10/22 11:00 07/10/22 11:05 Temperature Source Pulse Rate 112 H Pulse Rate [Apical] Pulse Rate from SpO2 Sensor 130 H Respiratory Rate 21 Respiratory Effort / Characteristics Respiratory Depth Respiratory Pattern Blood Pressure 139/99 162/92 H Blood Pressure [Left Arm] Blood Pressure Mean 121 108 Blood Pressure Mean [Left Arm] Pulse Oximetry 98 Oxygen Delivery Method Oxygen Flow Rate Sepsis Recent Fever Within 48 Hours Sepsis New/Unexplained Change in Mental Status Sepsis Action Taken by Nursing 07/10/22 11:05 07/10/22 11:18 07/10/22 11:18 Temperature Source Pulse Rate 123 H 143 H Pulse Rate [Apical] Pulse Rate from SpO2 Sensor 143 H Respiratory Rate 28 H 27 H Respiratory Effort / Characteristics Respiratory Depth Respiratory Pattern Blood Pressure 160/104 H Blood Pressure [Left Arm] Blood Pressure Mean 117 Blood Pressure Mean [Left Arm] Pulse Oximetry 98 Oxygen Delivery Method Oxygen Flow Rate Sepsis Recent Fever Within 48 Hours Sepsis New/Unexplained Change in Mental Status Sepsis Action Taken by Nursing 07/10/22 11:30 07/10/22 12:00 07/10/22 12:00 Temperature Source Pulse Rate 93 H 140 H Pulse Rate [Apical] Pulse Rate from SpO2 Sensor 140 H 141 H Respiratory Rate 21 26 H Respiratory Effort / Characteristics Respiratory Depth Respiratory Pattern Blood Pressure 163/116 H Blood Pressure [Left Arm] Blood Pressure Mean 128 Blood Pressure Mean [Left Arm] Pulse Oximetry 98 99 Oxygen Delivery Method Oxygen Flow Rate Sepsis Recent Fever Within 48 Hours Sepsis New/Unexplained Change in Mental Status Sepsis Action Taken by Nursing 07/10/22 12:30 Temperature Source Pulse Rate 134 H Pulse Rate [Apical] Pulse Rate from SpO2 Sensor 128 H Respiratory Rate 26 H Respiratory Effort / Characteristics Respiratory Depth Respiratory Pattern Blood Pressure Blood Pressure [Left Arm] Blood Pressure Mean Blood Pressure Mean [Left Arm] Pulse Oximetry 99 Oxygen Delivery Method Nasal Cannula Oxygen Flow Rate 2 Sepsis Recent Fever Within 48 Hours Sepsis New/Unexplained Change in Mental Status Sepsis Action Taken by Nursing Laboratory Data 07/10/22 09:02 07/10/22 09:02 Lab Results 07/10/22 07/10/22 07/10/22 Range/Units 08:20 09:02 09:02 WBC 6.87 (4.8-10.8) K/ul RBC 5.25 (4.70-6.10) M/uL Hgb 14.6 (14.0-18.0) g/dl Hct 41.7 L (42.0-52.0) % MCV 79.4 L (80.0-100.0) fL MCH 27.8 (25.0-34.0) pg MCHC 35.0 (32.0-36.0) g/dL RDW Std Deviation 42.5 (36.4-46.3) fL RDW Coeff of Gilberto 14.7 H (11.5-14.5) % Plt Count 133 (130-400) K/uL MPV 11.2 (9.4-12.4) fL Immature Gran % (Auto) 0.1 % Neut % (Auto) 52.3 % Lymph % (Auto) 35.1 % Ward % (Auto) 11.1 % Eos % (Auto) 0.4 % Baso % (Auto) 1.0 % Neut # (Auto) 3.59 (1.40-6.50) K/uL Lymph # (Auto) 2.41 (1.2-3.4) K/uL Ward # (Auto) 0.76 H (0.11-0.59) K/uL Eos # (Auto) 0.03 (0-0.50) K/uL Baso # (Auto) 0.07 (0-0.2) K/uL Immature Gran # (Auto) 0.01 (0.01-0.20) K/uL PT 13.7 H (9.0-12.0) Seconds INR 1.3 H (0.9-1.1) D-Dimer (0-500) ug/L FEU Sodium (136-145) mmol/L Potassium (3.5-5.1) mmol/L Chloride (98-107) mmol/L Carbon Dioxide (21-32) mmol/L Anion Gap (3-11) BUN (6-23) mg/dl Creatinine (0.6-1.4) mg/dl Est Cr Clr Drug Dosing ml/min Est GFR ( Amer) ml/min Est GFR (Non-Af Amer) ml/min BUN/Creatinine Ratio (10-20) Glucose (70-99(Fasting)) mg/dl Calcium (8.6-10.3) mg/dl Magnesium (1.7-2.4) mg/dl Total Bilirubin (0.2-1.0) mg/dl AST (13-39) U/L ALT (7-52) U/L Alkaline Phosphatase (34-104) U/L Troponin I High Sens (0-20) pg/ml B-Natriuretic Peptide (0-100) pg/ml Total Protein (6.0-8.3) gm/dl Albumin (3.4-5.0) gm/dl Globulin (2.5-4.0) gm/dl Albumin/Globulin Ratio (0.9-2) Lipase (11-82) U/L SARS-CoV-2, RNA, NAAT NEGATIVE (NEGATIVE) 07/10/22 07/10/22 07/10/22 Range/Units 09:02 09:02 11:26 WBC (4.8-10.8) K/ul RBC (4.70-6.10) M/uL Hgb (14.0-18.0) g/dl Hct (42.0-52.0) % MCV (80.0-100.0) fL MCH (25.0-34.0) pg MCHC (32.0-36.0) g/dL RDW Std Deviation (36.4-46.3) fL RDW Coeff of Gilberto (11.5-14.5) % Plt Count (130-400) K/uL MPV (9.4-12.4) fL Immature Gran % (Auto) % Neut % (Auto) % Lymph % (Auto) % Ward % (Auto) % Eos % (Auto) % Baso % (Auto) % Neut # (Auto) (1.40-6.50) K/uL Lymph # (Auto) (1.2-3.4) K/uL Ward # (Auto) (0.11-0.59) K/uL Eos # (Auto) (0-0.50) K/uL Baso # (Auto) (0-0.2) K/uL Immature Gran # (Auto) (0.01-0.20) K/uL PT (9.0-12.0) Seconds INR (0.9-1.1) D-Dimer 1540 H* (0-500) ug/L FEU Sodium 135 L (136-145) mmol/L Potassium 3.6 (3.5-5.1) mmol/L Chloride 93 L (98-107) mmol/L Carbon Dioxide 31 (21-32) mmol/L Anion Gap 11 (3-11) BUN 17 (6-23) mg/dl Creatinine 0.92 (0.6-1.4) mg/dl Est Cr Clr Drug Dosing 95.9 ml/min Est GFR ( Amer) 101.5 ml/min Est GFR (Non-Af Amer) 87.6 ml/min BUN/Creatinine Ratio 18.5 (10-20) Glucose 226 H (70-99(Fasting)) mg/dl Calcium 8.6 (8.6-10.3) mg/dl Magnesium 0.9 L* (1.7-2.4) mg/dl Total Bilirubin 2.4 H (0.2-1.0) mg/dl AST 59 H (13-39) U/L ALT 42 (7-52) U/L Alkaline Phosphatase 118 H (34-104) U/L Troponin I High Sens 4.1 (0-20) pg/ml B-Natriuretic Peptide 32 (0-100) pg/ml Total Protein 5.0 L (6.0-8.3) gm/dl Albumin 3.1 L (3.4-5.0) gm/dl Globulin 1.9 L (2.5-4.0) gm/dl Albumin/Globulin Ratio 1.6 (0.9-2) Lipase 51 (11-82) U/L SARS-CoV-2, RNA, NAAT (NEGATIVE) Administered Medications Discontinued Medications Furosemide (Furosemide 40 Mg/4 Ml Vial) 40 mg IV NOW STA Stop: 07/10/22 10:28 Last Admin: 07/10/22 11:17 Dose: Not Given Documented By: Magnesium Sulfate/Dextrose (Magnesium Sulfate / D5w) 1 gm in 100 mls @ 100 mls/hr IV Q1H KATHLEEN Stop: 07/10/22 13:38 Last Infusion: 07/10/22 14:02 Dose: 100 mls/hr Documented By: Admin: 07/10/22 13:01 Dose: 100 mls/hr Documented By: Infusion: 07/10/22 13:01 Dose: 100 mls/hr Documented By: Admin: 07/10/22 12:08 Dose: 100 mls/hr Documented By: AM Imaging Data Radiologist's Impression: Chest X-Ray 07/10/22 08:13 XR chest 1V portable HISTORY: Chest pain, nonspecific COMPARISON: Chest 07/19/2016. FINDINGS: There are low lung volumes. No pneumothorax. No pleural effusions. Bibasilar linear densities favor subsegmental atelectasis. The upper lung zones remain clear. The heart is mildly enlarged. This remains unchanged. There is mild central pulmonary vascular congestion without overt edema. There is mild elevation the right hemidiaphragm. Old, healed right midshaft clavicle fracture again noted. IMPRESSION: 1. Low lung volumes with bibasilar linear densities. These are nonspecific but favor subsegmental atelectasis. 2. Mild cardiomegaly and mild congestive change persist. ACT 112: Negative or not required by law. Electronically signed by: Rick Finley M.D. 07/10/2022 8:32 AM Discharge Plan Visit Data Chief Complaint: Shortness of Breath/Dyspnea Stated Complaint: SOB ED Provider: Yoandy Barboza Discharge Problem: Shortness of breath, Tachycardia, Treatment declined by patient Forms Stand Alone Forms: My Atteroc[facility] Prescriptions Prescriptions: No Action doxepin [Sinequan] 50 mg Capsule 50 mg PO HS Qty: 0 metformin 1,000 mg Tablet 1,000 mg PO BID Qty: 0 atorvastatin 10 mg Tablet 20 mg PO DAILY Qty: 0 glipizide 5 mg Tablet 5 mg PO BID Qty: 0 metoprolol tartrate 25 mg Tablet 0 mg PO BID Qty: 0 Rx Instructions: 25mg dose: Per medical unit at facility, pt takes 1 and 1/2 tabs bid. Novolin R Regular U-100 Insuln 100 unit/mL Solution 0 sliding scale dose SUBCUT USEASDIRECTD Rx Instructions: Per medical unit at facility, pt is supposed to take insulin but he's non compliant and refuses to take it. bumetanide [Bumex] 1 mg Tablet 1 mg PO DAILY Referrals Referrals: Katie SPEAR [Primary Care Provider] -
--- NOTE | 2022-07-10 08:34 | XRay Report ---
XR chest 1V portable HISTORY: Chest pain, nonspecific COMPARISON: Chest 07/19/2016. FINDINGS: There are low lung volumes. No pneumothorax. No pleural effusions. Bibasilar linear densiti es favor subsegmental atelectasis. The upper lung zones remain clear. The heart is mildly enlarged. T his remains unchanged. There is mild central pulmonary vascular congestion without overt edema. There is mild elevation the right hemidiaphragm. Old, healed right midshaft clavicle fracture again noted. IMPRESSION: 1. Low lung volumes with bibasilar linear densities. These are nonspecific but favor subsegmental ate lectasis. 2. Mild cardiomegaly and mild congestive change persist. ACT 112: Negative or not required by law. Electronically signed by: Rick Finley M.D. 07/10/2022 8:32 AM
[2022-07-10 09:34] LABS: Basophils # (auto) 0.07 K/uL (0-0.2); Eosinophils # (auto) 0.03 K/uL (0-0.50); Eosinophils % (auto) 0.4 %; Hematocrit (blood only) 41.7 % (42.0-52.0); Hemoglobin 14.6 g/dl (14.0-18.0); Immature Granulocytes # (auto) 0.01 K/uL (0.01-0.20); Immature Granulocytes % (auto) 0.1 %; Lymphocytes # (auto) 2.41 K/uL (1.2-3.4); Lymphocytes % (auto) 35.1 %; Mean Corpuscular Hemoglobin 27.8 pg (25.0-34.0); Mean Corpuscular Volume 79.4 fL (80.0-100.0); Mean Platelet Volume 11.2 fL (9.4-12.4); Monocytes # (auto) 0.76 K/uL (0.11-0.59); Monocytes % (auto) 11.1 %; Neutrophils # (auto) 3.59 K/uL (1.40-6.50); Neutrophils % (auto) 52.3 %; Platelet Count 133 K/uL (130-400); RDW Coefficient of Variation 14.7 % (11.5-14.5); RDW Standard Deviation 42.5 fL (36.4-46.3); Red Blood Count 5.25 M/uL (4.70-6.10); White Blood Count 6.87 K/ul (4.8-10.8)
[2022-07-10 09:50] LABS: Albumin Globulin Ratio 1.6 (0.9-2); Albumin Level 3.1 gm/dl (3.4-5.0); BUN Creatinine Ratio 18.5 (10-20); Bilirubin,Total 2.4 mg/dl (0.2-1.0); Calcium 8.6 mg/dl (8.6-10.3); Creatinine Clr Calc Pharmacy 95.9 ml/min; Est GFR (African American) 101.5 ml/min; Est GFR (Non-African American) 87.6 ml/min; Globulin 1.9 gm/dl (2.5-4.0); Potassium 3.6 mmol/L (3.5-5.1)
[2022-07-10 09:56] LABS: Troponin I High Sensitivity 4.1 pg/ml (0-20)
[2022-07-10 10:03] LABS: INR 1.3 (0.9-1.1); Prothrombin Time 13.7 Seconds (9.0-12.0)
[2022-07-10] MEDS ORDERED: FUROSEMIDE 40 MG/4 ML VIAL IV STA (10:27)
--- NOTE | 2022-07-10 10:38 | History & Physical Report ---
Date of Service July 10, 2022 Assessment & Plan (1) SOB (shortness of breath): Plan: 62 y/o M w/ PmHx dermatitis, CAD, CHF, chronic CLL of B-cell type in remission, constipation, HTN, T2DM, HCV admitted for shortness of breath and tachycardia. Shortness of breath/tachycardia: -Tachycardic to 130's, O2 stable on room air, afebrile, BP normal. -WBC 6.87, Hgb 14.6, plt 133, D-Dimer 1540, INR 1.3, Mg 0.9, T bili 2.4, AST/ALT 59/42, Lipase 51. -CXR w/ possible bibasilar subsegmental atelectasis, mild cardiomegaly and mild congestive change. -Etiology of the shortness of breath and tachycardia may be secondary to PE from portal venous thrombus. -CTA chest and angio AA runoff ordered however patient refusing work up for the potential clot. -Patient states he does not want any work up that will involve diagnostic testing for his liver or for a potential clot. When asked about if he knows what will happen if he has a potential clot and it is not treated when he goes back he said "I could " and that he would still not want any diagnostic testing for clots or his liver. -Discussed with palliative, consulted psychiatry for evaluation of capacity. -Will replete magnesium and monitor electrolytes. -Progression of determination of capacity and treatment as below by Dr. Chirinos. CHF: -BNP 32. CXR w/ mild cardiomegaly and mild conestive change. -Lungs clear on physical exam, mildly edematous bilateral lower extremities. -Less likely acute CHF cause to shortness of breath but may have some contribution from portal hypertension. -Continue daily Bumex 1mg oral and metoprolol 37.5mg BID. HCV: -Past history of HCV per [facility]. -Patient had refused ultrasound, further testing, or treatment in facility multiple times. -Patient still not wanting to proceed with any imaging or blood work related to his liver. -Questionable capacity from patient, will talk to palliative team for their thoughts. T2DM: -Glucose 226. -Can order SSI if staying, weight based long acting. -ACHS checks. constipation: -Patient with history of constipation with no bowel movement past 4-5 days. -Had bowel movement during ED course. -Can place on PRN Miralax. Chronic CLL in remission: -Unclear if metastasis to liver or other abdominal organs. -No prior treatment, just surveillance according to Katie. -Continue to trend CBC. HTN: -On metoprolol 37.5mg daily at home. Continue home medication. DVT Prophylaxis: SCDs F/E/N/GI: NPO. Code status: Patient stated would like everything done to be kept alive. Dispo: Med/tele (2) CHF (congestive heart failure): (3) Diabetes: (4) HCV (hepatitis C virus): (5) Chronic lymphocytic leukemia of B-cell type in remission: (6) Excoriation: (7) CAD (coronary artery disease), deering coronary artery: (8) Constipation: (9) Hypertension: History of Present Illness Chief Complaint: Shortness of breath Primary Care Provider: RAINER Wilson Ramiro is a 62 year old male with past medical history of dermatitis, CAD, CHF, chronic CLL of B-cell type in remission, constipation, HTN, T2DM, HCV coming in for shortness of breath. Patient states six months ago he was having episodes of intermittent feeling of aceves apple disappearing and choking sensation that would come and go. During the episodes he would feel a strangling sensation and it would be difficult to swallow. He says this has gotten worse over the past few months. He comes in today for shortness of breath worsening over the past week worse with laying flat. He denies any chest pain, nausea, urinary symptoms, fevers, chills, headaches. He says he vomits non-bloody liquid occasionally with it being most prominent when he's laying down. He endorses constipation with not being able to go for the past 4 or 5 days however had to go during interview at this time. When asked about contrast related reaction patient stated in the past he's had a reaction of feeling like his throat was tightening however this is able to be treated and mitigated with treatment with Benadryl and epinephrine. He has never had to have a breathing tube for reaction to contrast and has not had any rash or full anaphylaxis reaction. In the ED WBC 6.87, Hgb 14.6, PT 13.7, INR 1.3, Creat 0.92, glucose 226, T bili 2.4, AST 59, ALT 42, trop 4.1, Lipase 51. CXR w/ possible bibasilar subsegmental atelectasis, mild cardiomegaly and mild congestive change. When speaking to his provider Tian at [facility] it was relayed he has a history of HCV and has refused treatment at the alf facility after being offered several times. He follows with oncology for the CLL in remission, without any discernable chemo or radiation treatment, just surveillance, sees Dr. Lambert in [place] through the alf. No history of cirrhosis, last APRI score 1.391, F1 category. He thinks he has scabies, was biopsied by dermatology and was found to have folliculitis. In the alf he picks his skin chronically, confirmed both not cancer and not scabies. Allergies Allergy/AdvReac Type Severity Reaction Status Date / Time IV dye Allergy Unknown Patient Uncoded 07/13/16 15:20 unsure of reaction but recalls being treated. Home Medications Medication Instructions Recorded Confirmed Type doxepin 50 mg capsule 50 mg PO HS #0 caps 07/12/16 07/10/22 History metformin 1,000 mg tablet 1,000 mg PO BID #0 tabs 07/12/16 07/10/22 History atorvastatin 10 mg tablet 20 mg PO DAILY #0 tabs 03/25/17 07/10/22 History glipizide 5 mg tablet 5 mg PO BID #0 tabs 03/25/17 07/10/22 History metoprolol tartrate 25 mg tablet 0 mg PO BID #0 tabs 03/25/17 07/10/22 History bumetanide 1 mg tablet 1 mg PO DAILY 07/10/22 07/10/22 History insulin regular human 100 unit/mL 0 sliding scale dose subcut 07/10/22 07/10/22 History injection solution (Novolin R USEASDIRECTD Regular U-100 Insulin) Past Med/Surg History Social History Smoking Status: Former smoker Feels Safe at Home: Yes Review of Systems Review of Systems: As per HPI. Physical Exam Constitutional: WD/WN, vitals as above Eyes: PERRL, conjunctivae normal, anicteric sclerae Respiratory: normal respiratory effort, lungs clear to auscultation Cardiovascular: Rate/Rhythm: + tachycardic Heart Sounds: normal S1 and normal S2 1+ pitting edema at the bilateral lower extremities up to the knees. Gastrointestinal (Abdomen): Distended, soft, non-tender. Skin: Scattered excoriations/scabbing across bilateral lower extremities and upper extremities. Psychiatric: A+Ox3, euthymic affect Results & Data Results & Data Vital Signs (Past 12 Hours) Vital Signs Pulse Pulse Resp BP BP Pulse Ox O2 Del Method 07/10/22 10:00 129 H 23 145/96 H 98 Room Air 07/10/22 09:45 134 H 24 144/100 H 99 Nasal Cannula 07/10/22 08:43 125 H 07/10/22 08:06 Room Air 07/10/22 08:13 97 Room Air 07/10/22 07:49 130 H 30 H 146/98 H 96 Room Air O2 Flow Rate 07/10/22 10:00 07/10/22 09:45 2 07/10/22 08:43 07/10/22 08:06 07/10/22 08:13 07/10/22 07:49 Supervising Physician Co-Signing Physician Notes Patient seen and examined, chart reviewed, case discussed with George Garza MD and I agree with the assessment and plan as above except as otherwise noted Labs and images reviewed Rosalino is a 62-year-old male with a past medical history of type II DM, heart failure, LUTS, hypertension who presents with progressive orthopnea, lower extremity swelling, dyspnea, and tachycardia and who was recommended for admission for suspected CHF. CXR is without overt edema does have some evidence of pulmonary congestion. BNP is pending. High-sensitivity troponin is normal, EKG on admission is sinus with PVCs and no acute ST segment changes and QTc 426/CO 146. Patient has a elevation in total bilirubin/AST/alk phos without baseline labs available. He does not have leukocytosis, hemoglobin/platelet counts are normal although patient is with microcytosis of 79. COVID is negative. On initial evaluation patient is with clear breath sounds bilaterally, bilateral lower extremity edema, and soft abdominal swelling with fluid wave/ascites. He is laying flat in bed on room air with 98% O2, and is not orthopneic. He reports he does continue to have some feeling that his thyroid is out of place, and would like to be treated for heart failure. Did discuss with the patient that based on his elevated D-dimer of over 1500 it is highly possible that he has a blood clot which is contributing to his shortness of breath rather than a CHF exacerbation and additional fluid treatment would not necessarily help this. His BNP is also normal which does not indicate CHF as the source of his shortness of breath. Noted that he does not have a elevated troponin or BNP, or hemodynamic instability indicating unstable pulmonary emboli or right heart strain if PEs are present, but that these are within the differential for his shortness of breath. Did discuss with [facility] that patient has positive hep C viral titers in the last year but has declined ultrasound for this. Discussed this with the patient and he reports that this test is wrong, as he has not had any signs or symptoms of hepatitis including jaundice. He reports that he does not want this test repeated were confirmed. Did discuss at length that hepatitis is a virus that can cause progressive liver damage which may result in fluid accumulation, hepatic congestion, and sometimes blood clots related to this which could related to his current symptoms and which is also suggested by his mild transaminitis. Patient initially asks if we knew this was true based on blood work here, to which provider informed that we had not confirm this but we can to which patient reported he did not want this test confirmed because he does not have it and does not give consent to have hepatitis panel placed. Patient reports he does not want any treatment for blood clots or cirrhosis, and refuses additional tests. Did discuss with patient that no tests or treatments would be performed on him against his will as long as he has the capacity to decline them and understands that decision. When asked to clarify why he would not want treatment for blood clot or cirr hosis he reports because he does not have those. Discussed with patient that those things are possible, and that was okay to defer treatment for these but based on his lab evaluation and presenting symptoms it is possible that he were to have a blood clot or cirrhosis, but that this cannot be confirmed without additional imaging. Patient reports that he refuses additional imaging not because he does not want the work-up, but because he does not have those things. Given circular discussion without acknowledgment that blood clot/cirrhosis risk exists and with patient not expressing an understanding of the risk/benefits of refusing treatment as they apply to his medical condition further discussion with both palliative for [facility] and next surrogate decision maker is pending. Did discuss with present who patient's next of kin/contact would be. By their report they think that he has a father and a "other nonrelative "that could be contacted but must talk to see [facility] regarding this information and will reach back out to provider with a callback number. Update: Patient seen by both hospitalist and psychiatry for reassessment, and case reviewed. Patient does not demonstrate decision-making capacity, is unable to apply her/benefits of medical treatment choices as they apply to him, and is not able to adequately elicit the risk/benefits of declining treatment as they apply to his condition. As he remains tachycardic, mildly hypoxic, with elevated D- dimer with a high suspicion for PE which could be life-threatening or fatal he does not have the capacity to decline evaluation or treatment for this at this time. Will continue with pretreatment for possible IV contrast allergy, and pursue CT PE study for possible PE with CT of the abdomen with IV contrast for possibility of portal vein thrombus. Due to patient's persistent concerns of Jose's apple dislocation and movement, will extend CT to include soft tissue of the neck although do not note acute abnormality at time of bedside exam. Patient has normal QT, and may receive olanzapine 5 mg ODT for agitation if required. If patient become severely agitated to the extend that treatment doses of behavioral control posed an increased risk to respiratory stability the benefit of empiric treatment for PE/VTE may outweighs the risk of sedation to obtain the study to confirm diagnosis. In that can reasonable treat with heparin versus twice daily DOAC if unable to obtain imaging; for now will attempt to obtained CT studies. Penitentiary confirms patient only his his father and stepmother listed both at the same contact number. No other number available. Detailed left message has been left by palliative care, and we are pending callback. Resident Activity Tracking Resident Involvement: Resident Care Provided Care Provided: Adult Hospital Medicine and Adult ED
--- NOTE | 2022-07-10 11:23 | Electrocardiogram Report ---
Test Reason : Blood Pressure : / mmHG Vent. Rate : 132 BPM Atrial Rate : 132 BPM P-R Int : 146 ms QRS Dur : 066 ms QT Int : 288 ms P-R-T Axes : 030 -27 053 degrees QTc Int : 426 ms Sinus tachycardia with frequent Premature ventricular complexes Low voltage QRS Inferior infarct , age undetermined Possible Anterolateral infarct , age undetermined Abnormal ECG When compared with ECG of 16-JUL-2016 17:08, Significant changes have occurred Confirmed by Aime Patel ([id number]) on 07/10/2022 11:23:30 AM Referred By: [facility] Confirmed By:Aime Patel
[2022-07-10 11:40] LABS: Magnesium 0.9 mg/dl (1.7-2.4)
[2022-07-10 11:48] LABS: D Dimer 1540 ug/L FEU (0-500)
[2022-07-10] MEDS: MAGNESIUM SULFATE / D5W 1 GM/100 ML BAG IV SCH ×3 (12:08→18:43)
[2022-07-10] MEDS ORDERED: FAMOTIDINE 20 MG in SYRINGE 3 ML IV ONE (12:15)
--- NOTE | 2022-07-10 14:38 | Psychiatric Consultation ---
Date of Consultation July 10, 2022 Impression / Recommendations Impression Ramiro Francois is a prisoner at [facility] with a history of CHF,CLL, HCV and CAD admitted medically for SOB and tachycardia. Psychiatry consulted for decision making capacity to refuse imaging/workup for pulmonary embolism. In terms of decision making capacity it is foremost critical to emphasis that this assessment is task specific, dimensional and DOES NOT REPRESENT NOR CAN IT BE USED A MEANS OF ASSESSING GLOBAL LEGAL COMPETENCY OR NEED FOR GUARDIANSHIP. Assessment of Decision-Making Capacity Criterion (X=present) Patient Task YES Communicates a choice Patient is able to clearly indicate preferred treatment option in a clear and consistent manner: YES continues to refuse imaging NO Understands information provided Patient understands their condition and treatment options: NO he cannot speak to alternative options besides imaging nor other possible causes of his symptoms, is focused on CHF and thyroid being the only possible cause, doesn't believe anything else is possible NO Appreciates consequences Patient shows appropriately nuanced appreciation for the risks & benefits associated with available treatment options, including no treatment: NO can state that he could but doesn't understand the potentially rapid course of fatality with untreated PE ("I don't want to maybe later") nor can he appreciate how dying is at odd's with his desire to live and feel better NO Manipulates relevant information Patient able to rationally weigh risks & benefits, as well as offer reasons for their decision: NO rather he is focused on suspected somatic delusion about his thyroid falling out (and doesn't even want imaging or workup for this even though he stated this was a reason for coming to the hospital) It is important to note that a patient's decision can be unwise as long as a rational process was used to arrive at it. Decision making capacity determinations are decision and time specific. This patient does not have capacity with respect to refusing life saving medical treatments and workups (i.e. imaging/labwork/medication) for at this time. He is not able to articulate reasons for his decision and shows signs of possible delusions with severely impaired insight and judgment that seem interfere with his ability to meaningfully understand information and appreciate the risks of refusing treatment. Additionally he seems to have a type of recall bias where he believes he must have CHF exacerbation given he presented at the hospital in the past with similar symptoms that were ultimately attributed to CHF. The patient's decision making capacity could change in the future given that their mental status and various other factors can certainly fluctuate over time. (1) Impaired decision making: (2) Shortness of breath: (3) Tachycardia: (4) Treatment declined by patient: Plan -Patient DOES NOT have decision making capacity to refuse life saving/high risk of fatality or urgent medical treatment decisions nor workups including imaging/labwork/medications -Less acute decisions can be evaluated on a case by case basis depending on his understanding and the logic used to arrive at the decisions. In situations where he is felt to lack decision making capacity for non-urgent issues best substituted judgment (ideally from a family member) should be used -Discussed with Dr. Barboza and Dr. Chirinos Psych History Identifying Data Ramiro Francois is a prisoner at [facility] with a history of CHF,CLL, HCV and CAD admitted medically for SOB and tachycardia. Psychiatry consulted for decision making capacity to refuse imaging/workup for pulmonary embolism. Chief Complaint "My thyroid almost fell out". History of Present Illness Ramiro presented to the hospital via police from [facility] for worsening SOB and tachycardia. He was seen by the ED and hospitalist providers who all discussed their concerns with him for possible PE and need for further workup via imaging and concerns for liver issues. He expressed concern about investigation into his liver, specifically testing for Hep C, and refused any imaging or workup for the PE stating he understood he could . Psychiatry asked to weigh in given fatal and time sensitive nature of PE workup and concern for his decision making capacity. On assessment Ramiro states he is here for "CHF and to check my thyroid out". He then expands on concerns that his thyroid has been "moving out of place for the last 6 months or so and choking me, my Jose's apple is going to tear and then my thyroid is going to fall out, I've had to move it back before". He cannot recall the concerns about his lungs/PE/liver until specifically asked at which point he states "yeah they want to check for clots". He states "I don't want that, maybe later" but can't explain why except that "I was here before a few years ago with the same symptoms and it was CHF and they didn't do that gabriela ff before". He denies any concerns about pain, getting more information, cost, or issues related to the imaging. Rather just persists in stating that "I'm not going to do it". He can state with prompting that not looking into a PE could mean "you could or become hurt" but cannot speak to timeline, alternatives, or why he is making the decision to refuse further workup. Asked if he is refusing because he wants to he denies this admantly stating "I want to live" and denies depression and SI. He cannot seem to describe or recognize how his goal to get medical treatment, feel better and live is at odd's with refusing a medical workup for a potentially rapidly fatal condition. Allergies Allergy/AdvReac Type Severity Reaction Status Date / Time IV dye Allergy Unknown Patient Uncoded 07/13/16 15:20 unsure of reaction but recalls being treated. Home Medications Medication Instructions Recorded Confirmed Type doxepin 50 mg capsule 50 mg PO HS #0 caps 07/12/16 07/10/22 History metformin 1,000 mg tablet 1,000 mg PO BID #0 tabs 07/12/16 07/10/22 History atorvastatin 10 mg tablet 20 mg PO DAILY #0 tabs 03/25/17 07/10/22 History glipizide 5 mg tablet 5 mg PO BID #0 tabs 03/25/17 07/10/22 History metoprolol tartrate 25 mg tablet 0 mg PO BID #0 tabs 03/25/17 07/10/22 History bumetanide 1 mg tablet 1 mg PO DAILY 07/10/22 07/10/22 History insulin regular human 100 unit/mL 0 sliding scale dose subcut 07/10/22 07/10/22 History injection solution (Novolin R USEASDIRECTD Regular U-100 Insulin) Patient History Social History Smoking Status: Former smoker Feels Safe at Home: Yes Physical Exam Psychiatric: Orientation: alert and oriented x 3 Apperance: appropriately dressed and appropriately groomed Eye Contact: + fair eye contact Motor Behavior: no abnormal motor movements Speech: normal rate/rhythm/volume of speech Affect: + constricted affect Mood: no depressed mood and no anxious mood Thought Process: linear/logical thought process Thought Content: + delusions (posisble somatic delusions regarding odd beliefs about his thyroid) Suicidal Thoughts: denies suicidal thoughts Homicidal Thoughts: denies homicidal thoughts Hallucinations: no auditory hallucinations and no visual hallucinations Cognition: remote memory grossly intact, attention grossly intact and language grossly intact; + recent memory not intact (seems to have only limited recollection of discussion with other medical pr) Estimated Intelligence: + below average estimated intelligence Insight: + severely impaired insight Judgment: + severely impaired judgement Vital Signs (Past 24 Hours): Last Vital Signs Pulse 140 H 07/10/22 12:45 Resp 26 H 07/10/22 12:30 BP 163/116 H 07/10/22 12:00 Pulse Ox 99 07/10/22 12:30 O2 Del Method Nasal Cannula 07/10/22 12:30 O2 Flow Rate 2 07/10/22 12:30 Review of Systems All systems reviewed & are unremarkable except as noted in HPI & below Coding Level of Care Code 75503 IN/OBS CONSULT LVL 4,60M Diagnoses Impaired decision making Z78.9 Shortness of breath R06.02 Tachycardia R00.0 Treatment declined by patient Z53.20 Time Spent (min) 60
[2022-07-10] MEDS ORDERED: OLANZapine ZYDIS 5 MG ORALLY DIS. TAB PO ONE (15:11)
[2022-07-10] MEDS ORDERED: diphenhydrAMINE 50 MG/ML VIAL IV ONE (16:06)
[2022-07-10] MEDS ORDERED: ENOXAPARIN 80 MG/0.8 ML SYR SQ ONE (19:00)
[2022-07-10] MEDS ORDERED: GLUCOSE 10 TAB/TUBE PO PRN (19:15)
[2022-07-10] MEDS ORDERED: GLUCOSE 40% GEL 15 GM TUBE PO PRN (19:15)
[2022-07-10] MEDS ORDERED: DEXTROSE 50% 50 ML SYRINGE IV PRN (19:15)
[2022-07-10] MEDS ORDERED: GLUCAGON FOR INJ 1 MG VIAL SQ PRN (19:15)
[2022-07-10] MEDS ORDERED: CARBOHYDRATES FOR HYPOGLYCEMIA PO PRN (19:15)
[2022-07-10] MEDS ORDERED: MoRPHine SULFATE 2 MG/ML CARP IV STA (19:33)
[2022-07-10] MEDS: ENOXAPARIN 80 MG/0.8 ML SYR SQ SCH (21:40)
[2022-07-10] MEDS: INSULIN ASPART PER UNIT CHARGE SC SCH (21:40)
[2022-07-10] MEDS: LANTUS PER UNIT CHARGE SQ SCH (21:40)
[2022-07-10] MEDS ORDERED: HYDROmorphone INJ 0.5 MG/0.5 ML SYR IV STA (21:42)
[2022-07-10] MEDS: METOPROLOL TARTRATE 25 MG TAB PO SCH (22:10)
[2022-07-11 03:26] LABS: Appearance Urine Clear (Clear); Bacteria Urine Automated Negative (Negative); Blood Urine Negative (Negative); Cast Urine Automated 0 /lpf (0-5); Color Urine Orange; Glucose Urine UA 1+ (Negative); Ketones Urine Negative (Negative); Leukocyte Esterase Urine Trace (Negative); Nitrite Urine Positive (Negative); Protein Urine Negative (Negative); RBC Urine Automated 0-4 /hpf (0-4); Specific Gravity Urine 1.015 (1.000-1.030); Urobilinogen Urine Positive (Negative); pH Urine 5.5 (4.5-7.5)
[2022-07-11 03:32] LABS: Bilirubin Urine 1+ (Negative)
[2022-07-11] MEDS ORDERED: ENOXAPARIN 1 MG/KG SQ SCH (07:00)
[2022-07-11 08:25] LABS: Basophils # (auto) 0.06 K/uL (0-0.2); Basophils % (auto) 0.7 %; Eosinophils # (auto) 0.06 K/uL (0-0.50); Eosinophils % (auto) 0.7 %; Hematocrit (blood only) 40.8 % (42.0-52.0); Hemoglobin 14.2 g/dl (14.0-18.0); Immature Granulocytes # (auto) 0.02 K/uL (0.01-0.20); Immature Granulocytes % (auto) 0.2 %; Lymphocytes # (auto) 3.99 K/uL (1.2-3.4); Lymphocytes % (auto) 45.3 %; Mean Corpuscular Hemoglobin 27.6 pg (25.0-34.0); Mean Corpuscular Hgb Conc 34.8 g/dL (32.0-36.0); Mean Corpuscular Volume 79.2 fL (80.0-100.0); Mean Platelet Volume 11.3 fL (9.4-12.4); Monocytes # (auto) 0.82 K/uL (0.11-0.59); Monocytes % (auto) 9.3 %; Neutrophils # (auto) 3.85 K/uL (1.40-6.50); Neutrophils % (auto) 43.8 %; Platelet Count 161 K/uL (130-400); RDW Standard Deviation 42.9 fL (36.4-46.3); Red Blood Count 5.15 M/uL (4.70-6.10)
[2022-07-11 08:30] LABS: Anion Gap 7 (3-11); BUN Creatinine Ratio 17.1 (10-20); Blood Urea Nitrogen 13 mg/dl (6-23); Calcium 8.3 mg/dl (8.6-10.3); Carbon Dioxide 34 mmol/L (21-32); Chloride 93 mmol/L (98-107); Creatinine Clr Calc Pharmacy 104.6 ml/min; Est GFR (African American) 111.7 ml/min; Est GFR (Non-African American) 96.4 ml/min; Glucose 161 mg/dl (70-99(Fasting)); Sodium 134 mmol/L (136-145)
[2022-07-11] MEDS: INSULIN ASPART PER UNIT CHARGE SC SCH ×4 (09:01→20:06)
[2022-07-11] MEDS: ATORVASTATIN 20 MG TAB PO SCH (09:03)
[2022-07-11] MEDS: METOPROLOL TARTRATE 25 MG TAB PO SCH (09:03)
[2022-07-11] MEDS: LANTUS PER UNIT CHARGE SQ SCH ×2 (09:06→20:07)
[2022-07-11] MEDS: ENOXAPARIN 80 MG/0.8 ML SYR SQ SCH ×2 (09:27→20:07)
--- NOTE | 2022-07-11 09:37 | Communication Note ---
Date of Service: July 11, 2022 Palliative Mdicine Brief Note late entry note for 07/10/22: case d/w Dr. Guajardo. Py is consistently inconsistent with his wishes. He is not allowing testing, imaging, etc. I was asked to assist with [facility] discussion, pre jail the [facility] is her father and stepmother. I called them 4 times yesterday afternoon with last attempt at 545pm. To date, no response. There is no other phone number for them an no other family or [facility] individual per jail officials. Would note: when pt is asked what could happen if he refuses to allow treatment and testing, h replies with "I could ." he at least seems to grasp the implications and potential outcomes of his decisions even if the rationale for those decisions is not well founded/justified. There is some support that this preference and understanding that he could is in alignment with a DNR/DNI code status since he does not want to allow any aggressive interventions. Thank you for allowing us to participate in the ongoing care of this patient. Please don't hesitate to call or page with any additional concerns. Dr. Gaby Huang DNP Director, Palliative Care
--- NOTE | 2022-07-11 10:16 | Hospitalist Progress Note ---
Date of Service July 11, 2022 Assessment & Plan (1) SOB (shortness of breath): Plan: 62 y/o M w/ PmHx dermatitis, CAD, CHF, chronic CLL of B-cell type in remission, constipation, HTN, T2DM, HCV admitted for shortness of breath and tachycardia. Shortness of breath/tachycardia: -Tachycardic to 130's, O2 stable on room air, afebrile, BP normal. -Etiology of the shortness of breath and tachycardia may be secondary intravascular volume depletion due to his expanding abdominal tenseness which could be ascites either from cirrhosis from previous hepatitis C or from malignancy However patient will not permit us to do we have an ultrasound to evaluate his abdomen. Initial liver function test and presentation were mild abnormal however if he has chronic liver disease they may not appear very abnormal Patient will only permit us to treat his "heart failure". To the central use oral furosemide therapy and once again reattempted draw laboratories in the morning. With his persistent tachycardia with signs of physiological stressors he may decompensate and be rendered on responsive to make decisions. Psychiatry evaluation did comment on a consult from the that he lacks capacity to make decisions about CT scans and laboratory testing etc The challenge with regard to this is to force him to do these testing may placed he or staff at risk either from sedation which could have profound effects if used for chronic liver disease or injury to himself or to staff from fighting the testing I was speaking with the [facility] physician with situations that occurred similar to this in the past sometimes patients have need to be tolerated with regard to the refusal of care until they become unable to refuse care as the patient has confirmed he wants to be a full code etc at this point time will employ another 24 hours and continue to try to ask him to permit us to have testing performed . CHF: Suspect chronic systolic heart failure furosemide 40 mg twice daily Due to tachycardia increase metoprolol to 50 twice daily HCV: -Past history of HCV per [facility]. T2DM: -Glucose 226. -basal bolus insulin -ACHS checks. constipation: -Patient with history of constipation -Had bowel movement during ED course. Chronic CLL in remission: DVT Prophylaxis: SCDs (2) CHF (congestive heart failure): (3) Diabetes: (4) HCV (hepatitis C virus): (5) Chronic lymphocytic leukemia of B-cell type in remission: (6) Excoriation: (7) CAD (coronary artery disease), [place] coronary artery: (8) Constipation: (9) Hypertension: Admission and Anticipated Discharge Date Admission Date: July 10, 2022 Subjective Patient had long discussion from the guards. He still endorses the fact he does not want any diagnostic testing for his longer his abdomen including his liver. Any serology but wants to take medications to become more stable. I spoke to Dr. Myers who is the physician [facility] who states that if the patient refuses care he can be returned with the understanding that he would likely decline but that is an inevitable consequence of him refusing care Physical Exam Constitutional: pt is awake, talks in circles cardiac is distant, lungs diminished at the bases abdomen is distended and tense, non tender no rebound Results & Data Results & Data Vital Signs (Past 12 Hours) Vital Signs Temp Pulse Pulse Resp BP Pulse Ox O2 Del Method 07/11/22 07:40 97.9 F 109 H 18 155/107 H 95 Room Air 07/11/22 02:48 103 H 20 147/107 H 91 Room Air 07/10/22 23:18 85 07/10/22 23:30 Room Air 07/10/22 23:07 134 H 26 H 146/102 H 93 Room Air Laboratory Results reviewed cbc reviewewd prp PG Care Time/CCT Total # of Minutes Spent Total Time Spent with Patient: Total time spent is greater than 50% in coordination of care (as documented) at patient's floor/unit and/or counseling patient: Coding Level of Care Code 58510 SUB INP/OBS CARE 3/50MIN Diagnoses SOB (shortness of breath) R06.02 CHF (congestive heart failure) I50.9 Diabetes E11.9 HCV (hepatitis C virus) B19.20 Chronic lymphocytic leukemia of B-cell type in remission C91.11 Excoriation T14.8XXA CAD (coronary artery disease), [place] coronary artery I25.10 Constipation K59.00 Hypertension I10
--- NOTE | 2022-07-11 11:35 | Communication Note ---
Date of Service: July 11, 2022 Brief [facility] Med Note I attempted to reach patient's parents, Dean at [phone] again, today at [id number]. No answer. I left another message on the voicemail with my office and direct #, requested a call back. Thank you for allowing us to participate in the ongoing care of this patient. Please don't hesitate to call or page with any additional concerns. Dr. Gaby Huang DNP Director, Palliative Care
[2022-07-11] MEDS ORDERED: LORazepam 2 MG/1 ML VIAL IV STA (19:51)
[2022-07-11] MEDS: MAGNESIUM SULFATE / D5W 1 GM/100 ML BAG IV SCH (20:04)
[2022-07-11] MEDS: METOPROLOL TARTRATE 50 MG TAB PO SCH (20:05)
[2022-07-11] MEDS: FUROSEMIDE 40 MG TAB PO SCH (20:05)
[2022-07-12 06:11] LABS: Basophils # (auto) 0.07 K/uL (0-0.2); Basophils % (auto) 0.9 %; Eosinophils # (auto) 0.09 K/uL (0-0.50); Eosinophils % (auto) 1.2 %; Hematocrit (blood only) 39.7 % (42.0-52.0); Immature Granulocytes # (auto) 0.02 K/uL (0.01-0.20); Immature Granulocytes % (auto) 0.3 %; Lymphocytes # (auto) 3.08 K/uL (1.2-3.4); Lymphocytes % (auto) 39.4 %; Mean Corpuscular Hemoglobin 27.9 pg (25.0-34.0); Mean Corpuscular Hgb Conc 35.3 g/dL (32.0-36.0); Mean Corpuscular Volume 79.1 fL (80.0-100.0); Mean Platelet Volume 11.1 fL (9.4-12.4); Monocytes # (auto) 1.07 K/uL (0.11-0.59); Monocytes % (auto) 13.7 %; Neutrophils # (auto) 3.48 K/uL (1.40-6.50); Neutrophils % (auto) 44.5 %; Platelet Count 125 K/uL (130-400); RDW Coefficient of Variation 14.7 % (11.5-14.5); RDW Standard Deviation 42.5 fL (36.4-46.3); Red Blood Count 5.02 M/uL (4.70-6.10); White Blood Count 7.81 K/ul (4.8-10.8)
[2022-07-12 06:24] LABS: BUN Creatinine Ratio 16.1 (10-20); Calcium 7.9 mg/dl (8.6-10.3); Creatinine Clr Calc Pharmacy 91.4 ml/min; Est GFR (African American) 105.7 ml/min; Est GFR (Non-African American) 91.2 ml/min; Potassium 3.3 mmol/L (3.5-5.1)
[2022-07-12 08:23] LABS: Albumin Level 2.8 gm/dl (3.4-5.0); Bilirubin Direct 1.3 mg/dl (0-0.2); Bilirubin,Total 2.3 mg/dl (0.2-1.0); Total Protein 4.4 gm/dl (6.0-8.3)
[2022-07-12] MEDS: INSULIN ASPART PER UNIT CHARGE SC SCH ×5 (08:45→20:19)
[2022-07-12] MEDS: LANTUS PER UNIT CHARGE SQ SCH ×3 (08:46→20:20)
[2022-07-12] MEDS: ATORVASTATIN 20 MG TAB PO SCH (09:01)
[2022-07-12] MEDS: FUROSEMIDE 40 MG TAB PO SCH ×2 (09:01→16:29)
[2022-07-12] MEDS: METOPROLOL TARTRATE 50 MG TAB PO SCH ×3 (09:01→20:37)
[2022-07-12] MEDS: ENOXAPARIN 80 MG/0.8 ML SYR SQ SCH ×2 (09:02→20:20)
[2022-07-12] MEDS ORDERED: PSYLLIUM or GUAR GUM FIBER POWDER PACKET PO ONE (13:30)
[2022-07-12] MEDS: oxyCODONE HCL IR 5 MG TAB (IMMEDIATE RELEASE) PO PRN ×2 (13:59→20:21)
--- NOTE | 2022-07-12 15:56 | Hospitalist Progress Note ---
Date of Service July 12, 2022 Assessment & Plan (1) SOB (shortness of breath): Plan: 62 y/o M w/ PmHx dermatitis, CAD, CHF, chronic CLL of B-cell type in remission, constipation, HTN, T2DM, HCV admitted for shortness of breath and tachycardia. Shortness of breath/tachycardia: -Tachycardic to 130's, O2 stable on room air, afebrile, BP normal. -Etiology of the shortness of breath and tachycardia may be secondary intravascular volume depletion due to his expanding abdominal tenseness which could be ascites either from cirrhosis from previous hepatitis C or from malignancy However patient will not permit us to do we have an ultrasound to evaluate his abdomen. Initial liver function test and presentation were mild abnormal and remained so. Patient with a history of hepatitis C and could have progressive cirrhosis we have very little records MELD score from presenting labs this 16 points are 6% 3-month mortality makes me consider is is ascitic fluid from a malignancy and not from liver disease Patient will only permit us to treat his "heart failure". His heart failure is not defined with a systolic or diastolic continue p.o. Lasix with no renal distress I was speaking with the [facility] physician with situations that occurred similar to this in the past sometimes patients have need to be tolerated with regard to the refusal of care until they become unable to refuse care as the patient has confirmed he wants to be a full code etc at this point time will employ another 24 hours and continue to try to ask him to permit us to have testing performed . CHF: Suspect chronic systolic heart failure furosemide 40 mg twice daily Due to tachycardia increased metoprolol to 50 twice daily HCV: -Past history of HCV per [facility]. Brings up concern for progressive cirrhosis T2DM: -Glucose 226. -basal bolus insulin -ACHS checks. constipation: -Patient with history of constipation -Had bowel movement during ED course. Chronic CLL in remission: [place] is guarded at this time patient has progressively had worsening what appears to be abdominal ascites without the ability to perform diagnostic testing DVT Prophylaxis: SCDs (2) CHF (congestive heart failure): (3) Diabetes: (4) HCV (hepatitis C virus): (5) Chronic lymphocytic leukemia of B-cell type in remission: (6) Excoriation: (7) CAD (coronary artery disease), [place] coronary artery: (8) Constipation: (9) Hypertension: Plan Over 50 minutes were spent with this patient both in the room counseling him and also discussing him with present physician in addition to chart preparation Admission and Anticipated Discharge Date Admission Date: July 10, 2022 Subjective Patient had long discussion once again with the patiet. He still endorses the fact he does not want any diagnostic testing for his abdomen including his liver. He states that he has some left rib pain that maybe from gastric distension. offered U/S with description of possibly relieving pain in ribs, he still denies just wants metamucil and to be treated for heart failure I spoke to Dr. Myers who is the physician at the [facility], I also spoke to staff psychiatric who feels that it would be difficult to force the pt to have testing without creating risk for harm. [facility] feels that if the patient refuses care he can be returned with the understanding that he would likely decline but that is an inevitable consequence of him refusing care will continue to try to work with paitent for a resolution Physical Exam Physical Exam: Patient awake alert oriented to person and place able to have a casual conversation and follows commands still endorses does not wish to have work-up of his medical issues but wishes to have stabilization of his medical issues Cardiac exam is regular but rapid at times lungs are diminished at bases but clear abdomen is extremely distended and dull it is almost tense there is no rebound or guarding I cannot define a fluid wave but is definitely not tympanitic it is more dull to percussion p.o. was not typical sensation of lumpiness that is felt with constipation and this makes me believe this is more ascites Results & Data Results & Data Vital Signs (Past 12 Hours) Vital Signs Temp Pulse Pulse Resp BP Pulse Ox O2 Del Method 07/12/22 15:27 99 H 07/12/22 11:35 97.9 F 101 H 18 154/98 H 93 Room Air 07/12/22 08:15 103 H 07/12/22 07:41 98.2 F 108 H 19 140/89 90 Room Air Laboratory Results Reviewed CBC Reviewed chemistry Ordered urine testing culture results PG Care Time/CCT Total # of Minutes Spent Total Time Spent with Patient: Total time spent is greater than 50% in coordination of care (as documented) at patient's floor/unit and/or counseling patient: Coding Level of Care Code 27289 SUB INP/OBS CARE 3/50MIN Diagnoses SOB (shortness of breath) R06.02 CHF (congestive heart failure) I50.9 Diabetes E11.9 HCV (hepatitis C virus) B19.20 Chronic lymphocytic leukemia of B-cell type in remission C91.11 Excoriation T14.8XXA CAD (coronary artery disease), [place] coronary artery I25.10 Constipation K59.00 Hypertension I10
[2022-07-12] MEDS: COUGH DROP (SUGAR FREE) LOZ 24 LOZ/1 BOX BUCCAL PRN (20:21)
[2022-07-13] MEDS ORDERED: METOPROLOL TARTRATE 1 MG/ML VIAL IV STA (03:00)
[2022-07-13 06:43] LABS: Basophils # (auto) 0.09 K/uL (0-0.2); Basophils % (auto) 1.2 %; Eosinophils # (auto) 0.12 K/uL (0-0.50); Eosinophils % (auto) 1.6 %; Hematocrit (blood only) 40.7 % (42.0-52.0); Immature Granulocytes # (auto) 0.02 K/uL (0.01-0.20); Immature Granulocytes % (auto) 0.3 %; Lymphocytes # (auto) 3.08 K/uL (1.2-3.4); Lymphocytes % (auto) 42.1 %; Mean Corpuscular Hemoglobin 27.6 pg (25.0-34.0); Mean Corpuscular Hgb Conc 34.4 g/dL (32.0-36.0); Mean Corpuscular Volume 80.1 fL (80.0-100.0); Mean Platelet Volume 10.9 fL (9.4-12.4); Monocytes % (auto) 12.3 %; Neutrophils # (auto) 3.11 K/uL (1.40-6.50); Neutrophils % (auto) 42.5 %; Platelet Count 120 K/uL (130-400); RDW Coefficient of Variation 14.9 % (11.5-14.5); RDW Standard Deviation 43.5 fL (36.4-46.3); Red Blood Count 5.08 M/uL (4.70-6.10); White Blood Count 7.32 K/ul (4.8-10.8)
[2022-07-13 07:17] LABS: BUN Creatinine Ratio 24.6 (10-20); Calcium 8.1 mg/dl (8.6-10.3); Creatinine Clr Calc Pharmacy 122.3 ml/min; Est GFR (African American) 119.2 ml/min; Est GFR (Non-African American) 102.8 ml/min; Potassium 3.3 mmol/L (3.5-5.1)
[2022-07-13] MEDS: INSULIN ASPART PER UNIT CHARGE SC SCH ×4 (07:44→21:08)
[2022-07-13 08:09] LABS: Albumin Level 2.8 gm/dl (3.4-5.0); Bilirubin Direct 1.2 mg/dl (0-0.2); Bilirubin,Total 2.2 mg/dl (0.2-1.0)
[2022-07-13 08:15] LABS: Total Protein 4.4 gm/dl (6.0-8.3)
[2022-07-13] MEDS: ATORVASTATIN 20 MG TAB PO SCH (08:59)
[2022-07-13] MEDS: POTASSIUM CHLORIDE PWD 20 MEQ PACK PO SCH ×2 (08:59→22:11)
[2022-07-13] MEDS: FUROSEMIDE 40 MG TAB PO SCH ×2 (08:59→17:54)
[2022-07-13] MEDS: METOPROLOL TARTRATE 50 MG TAB PO SCH ×2 (08:59→22:11)
[2022-07-13] MEDS: LANTUS PER UNIT CHARGE SQ SCH ×2 (09:00→21:08)
[2022-07-13] MEDS ORDERED: oxyCODONE HCL IR 5 MG TAB (IMMEDIATE RELEASE) PO PRN (11:39)
[2022-07-13] MEDS ORDERED: SENNA 8.6 MG TAB PO ONE (11:41)
[2022-07-13] MEDS: ENOXAPARIN 80 MG/0.8 ML SYR SQ SCH ×2 (12:29→21:09)
--- NOTE | 2022-07-13 12:36 | Hospitalist Progress Note ---
Date of Service July 13, 2022 Assessment & Plan (1) SOB (shortness of breath): Plan: 62 y/o M w/ PmHx dermatitis, CAD, CHF, chronic CLL of B-cell type in remission, constipation, HTN, T2DM, HCV admitted for shortness of breath and tachycardia. Shortness of breath/tachycardia: The symptoms have improved Continues on oral diuretic therapy Concerned his symptoms are from abdominal ascites limiting excursion of breathing Origin of ascites is undetermined concern with elevation of CEA could be malignant ascites previous history of hepatitis C however without significant laboratory serology changes with his liver function MELD score from presenting labs this 16 points are 6% 3-month mortality makes me consider is is ascitic fluid from a malignancy and not from liver disease Patient will only permit us to treat his "heart failure". His heart failure is not defined with a systolic or diastolic continue p.o. Lasix continues with no renal distress I was speaking with the alf physician with situations that occurred similar to this in the past sometimes patients have need to be tolerated with regard to the refusal of care until they become unable to refuse care as the patient has confirmed he wants to be a full code etc at this point time will employ another 24 hours and continue to try to ask him to permit us to have testing performed . CHF: Suspect chronic systolic heart failure furosemide 40 mg twice daily Due to tachycardia increased metoprolol to 50 twice daily HCV: -Past history of HCV per [facility]. Brings up concern for progressive cirrhosis T2DM: -Glucose 226. -basal bolus insulin -ACHS checks. constipation: -Patient with history of constipation -Had bowel movement during ED course. Chronic CLL in remission: [place] is guarded at this time patient has progressively had worsening what appears to be abdominal ascites without the ability to perform diagnostic testing DVT Prophylaxis: SCDs (2) CHF (congestive heart failure): (3) HCV (hepatitis C virus): (4) Chronic lymphocytic leukemia of B-cell type in remission: Admission and Anticipated Discharge Date Admission Date: July 10, 2022 Subjective Patient continues to have abdominal distention is improved constipation did have a bowel movement on 526. Patient is permitting serologies we will provide another chest x-ray Disclosed elevation of his CEA, question about previous colonoscopies, he said he had a colonoscopy a few years ago in his 50s that was perfectly normal and healthy in his own words. He still refusing any advanced imaging of his abdomen Physical Exam Physical Exam: Awake alert appropriate, eating lunch, Abdomen is dull and distended no focal tenderness consistent with ascites Results & Data Results & Data Vital Signs (Past 12 Hours) Vital Signs Temp Pulse Pulse Resp BP BP Pulse Ox 07/13/22 11:41 97.9 F 106 H 20 155/106 H 94 07/13/22 10:00 105 H 07/13/22 10:00 07/13/22 07:57 97.9 F 122 H 18 158/108 H 91 07/13/22 05:51 111 H 07/13/22 03:46 101 H 154/85 H 07/13/22 03:30 98.0 F 118 H 18 165/106 H 92 07/13/22 03:43 116 H 165/106 H O2 Del Method 07/13/22 11:41 Room Air 07/13/22 10:00 07/13/22 10:00 Room Air 07/13/22 07:57 Room Air 07/13/22 05:51 07/13/22 03:46 07/13/22 03:30 Room Air 07/13/22 03:43 Laboratory Results Reviewed CBC Reviewed PRP Reviewed elevated CEA Order chest x-ray PG Care Time/CCT Total # of Minutes Spent Total Time Spent with Patient: Total time spent is greater than 50% in coordination of care (as documented) at patient's floor/unit and/or counseling patient: Coding Level of Care Code 25620 SUB INP/OBS CARE 2/35MIN Diagnoses SOB (shortness of breath) R06.02 CHF (congestive heart failure) I50.9 HCV (hepatitis C virus) B19.20 Chronic lymphocytic leukemia of B-cell type in remission C91.11
--- NOTE | 2022-07-13 14:29 | XRay Report ---
XR chest 1V portable HISTORY: left rib pain eval for fx or mets COMPARISON: Chest 07/10/2022. FINDINGS: There are low lung volumes. No pneumothorax. The heart remains enlarged. No evidence for pu lmonary edema. There are bibasilar linear densities favoring subsegmental atelectasis. No definite pl eural effusions. No acute rib fractures identified. No rib lesions identified. IMPRESSION: 1. Low lung volumes with bibasilar linear densities. This favors subsegmental atelectasis. 2. No rib fractures or rib lesions identified. ACT 112: Negative or not required by law. Electronically signed by: Rick Finley M.D. 07/13/2022 2:27 PM
[2022-07-13] MEDS: COUGH DROP (SUGAR FREE) LOZ 24 LOZ/1 BOX BUCCAL PRN (18:06)
[2022-07-13] MEDS ORDERED: diphenhydrAMINE 50 MG/ML VIAL IV PRN (19:27)
[2022-07-13] MEDS ORDERED: FUROSEMIDE INJ 20 MG/2 ML VIAL IV ONE (19:30)
[2022-07-13] MEDS ORDERED: HYDROmorphone INJ 0.5 MG/0.5 ML SYR IV STA (20:07)
--- NOTE | 2022-07-13 20:19 | Communication Note ---
Date of Service: July 13, 2022 I was informed by RN of pt reporting 10/10 L sided chest pain and increasing dyspnea. Vitals 158/93, HR 106, O2 88% on RA, 36.8 C. The pt was reportedly askindia barclay for more diagnostic workup at this time. Per chart review, he had refused to have any CT imaging done for suspected pulmonary embolism earlier in his stay. I did order chest CT angiography and CTAP w/ contrast to evaluate for PE + worsening ascites. I also ordered a dose of Lasix 10 mg IV for further diuresis, as the patient had only been accepting treatment for heart failure during his stay. Shortly after ordering the CT imaging and Lasix, I was informed by RN that patient was now refusing further workup, Lasix and pain medication. I did go evaluate him upon learning this. He did have abdominal distension and tenderness w/o guarding or rebound, and diminished breath sounds with some expiratory wheezing b/l. I discussed at length with the patient the need for CT imaging to evaluate for PE. He did express an understanding of the risks/benefits and I felt he did have decisional capacity at the time. Ultimately, he refused to have any further imaging done tonight but stated he would ponder the issue. He did agree to pain medication and Lasix and understood that if he were to refuse further treatment, we would likely have to discharge back to [facility]. Resident Activity Tracking Resident Involvement: Resident Care Provided Care Provided: Adult Hospital Medicine
[2022-07-14] MEDS: FUROSEMIDE 40 MG TAB PO SCH (09:17)
[2022-07-14] MEDS: ATORVASTATIN 20 MG TAB PO SCH (09:17)
[2022-07-14] MEDS: SENNA 8.6 MG TAB PO SCH ×2 (09:18→17:41)
[2022-07-14] MEDS: METOPROLOL TARTRATE 50 MG TAB PO SCH ×2 (09:18→20:44)
[2022-07-14] MEDS: ENOXAPARIN 80 MG/0.8 ML SYR SQ SCH ×2 (09:19→20:44)
[2022-07-14] MEDS: POTASSIUM CHLORIDE PWD 20 MEQ PACK PO SCH ×2 (09:20→20:44)
[2022-07-14] MEDS: COUGH DROP (SUGAR FREE) LOZ 24 LOZ/1 BOX BUCCAL PRN ×2 (09:20→20:52)
[2022-07-14] MEDS: INSULIN ASPART PER UNIT CHARGE SC SCH ×4 (10:15→20:58)
[2022-07-14] MEDS: LANTUS PER UNIT CHARGE SQ SCH ×2 (10:16→20:58)
--- NOTE | 2022-07-14 11:12 | Electrocardiogram Report ---
Test Reason : Blood Pressure : / mmHG Vent. Rate : 105 BPM Atrial Rate : 105 BPM P-R Int : 154 ms QRS Dur : 064 ms QT Int : 342 ms P-R-T Axes : 045 -08 033 degrees QTc Int : 452 ms Sinus tachycardia Low voltage QRS Inferior infarct (cited on or before 10-JUL-2022) Cannot rule out Anteroseptal infarct (cited on or before 10-JUL-2022) Abnormal ECG When compared with ECG of 10-JUL-2022 07:59, Premature ventricular complexes are no longer Present Confirmed by Son Moore ([id number]) on 07/14/2022 11:12:29 AM Referred By: [facility] Confirmed By:Son Moore
[2022-07-14] MEDS ORDERED: POLYETHYLENE (MIRALAX) 17 GM PACK PO ONE (11:45)
--- NOTE | 2022-07-14 16:55 | Hospitalist Progress Note ---
Date of Service July 14, 2022 Assessment & Plan (1) SOB (shortness of breath): Plan: 62 y/o M w/ PmHx dermatitis, CAD, CHF, chronic CLL of B-cell type in remission, constipation, HTN, T2DM, HCV admitted for shortness of breath and tachycardia. Shortness of breath/tachycardia: The symptoms have improved Continues on oral diuretic therapy Concerned his symptoms are from abdominal ascites limiting excursion of breathing Origin of ascites is undetermined concern with elevation of CEA could be malignant ascites previous history of hepatitis C however without significant laboratory serology changes with his liver function MELD score from presenting labs this 16 points are 6% 3-month mortality makes me consider is is ascitic fluid from a malignancy and not from liver disease Patient will only permit us to treat his "heart failure". His heart failure is not defined with a systolic or diastolic continue. Lasix continues with no renal distress I was speaking with the senior living physician with situations that occurred similar to this in the past sometimes patients have need to be tolerated with regard to the refusal of care until they become unable to refuse care as the patient has confirmed he wants to be a full code etc at this point time will employ another 24 hours and continue to try to ask him to permit us to have testing performed . CHF: Suspect chronic systolic heart failure furosemide 40 mg twice daily Due to tachycardia increased metoprolol to 50 twice daily HCV: -Past history of HCV per [facility]. Brings up concern for progressive cirrhosis T2DM: -Glucose 226. -basal bolus insulin -ACHS checks. constipation: -Patient with history of constipation -Had bowel movement during ED course. Chronic CLL in remission: [place] is guarded at this time patient has progressively had worsening what appears to be abdominal ascites without the ability to perform diagnostic t esting DVT Prophylaxis: SCDs (2) CHF (congestive heart failure): (3) HCV (hepatitis C virus): (4) Chronic lymphocytic leukemia of B-cell type in remission: Admission and Anticipated Discharge Date Admission Date: July 10, 2022 Subjective Once again the patient continues to be in denial that he is got a massively expanding abdominal with likely ascites. They are dull to percussion there is no rebound or guarding. Patient is taking laxatives and continues to believe that he is constipated that is causing his symptoms but will not permit any imaging of his stomach to corroborate or refute this. He is in mild to moderate respiratory distress likely from reduction in diaphragmatic excursion due to his massive abdominal expansion He has some bilateral rib pain worse on the left likely likely also due to abdominal expansion Physical Exam Physical Exam: Awake alert appropriate, eating lunch, drinking laxatives Abdomen is dull and distended no focal tenderness consistent with ascites Does have some rib discomfort on the left side Results & Data Results & Data Vital Signs (Past 12 Hours) Vital Signs Temp Pulse Resp BP Pulse Ox O2 Del Method 07/14/22 14:39 98.1 F 88 16 144/76 H 93 Room Air 07/14/22 09:27 Room Air 07/14/22 07:39 97.7 F 96 H 18 134/85 94 Room Air PG Care Time/CCT Total # of Minutes Spent Total Time Spent with Patient: Total time spent is greater than 50% in coordination of care (as documented) at patient's floor/unit and/or counseling patient: Coding Level of Care Code 27574 SUB INP/OBS CARE 2/35MIN Diagnoses SOB (shortness of breath) R06.02 CHF (congestive heart failure) I50.9 HCV (hepatitis C virus) B19.20 Chronic lymphocytic leukemia of B-cell type in remission C91.11
[2022-07-14] MEDS: FUROSEMIDE 40 MG/4 ML VIAL IV SCH (20:44)
[2022-07-15] MEDS: ATORVASTATIN 20 MG TAB PO SCH (09:02)
[2022-07-15] MEDS: INSULIN ASPART PER UNIT CHARGE SC SCH ×4 (09:04→21:52)
[2022-07-15] MEDS: LANTUS PER UNIT CHARGE SQ SCH ×2 (09:04→21:53)
[2022-07-15] MEDS: METOPROLOL TARTRATE 50 MG TAB PO SCH ×2 (09:06→21:52)
[2022-07-15] MEDS: POTASSIUM CHLORIDE PWD 20 MEQ PACK PO SCH ×2 (09:07→21:53)
[2022-07-15] MEDS: PSYLLIUM or GUAR GUM FIBER POWDER PACKET PO SCH (09:07)
[2022-07-15] MEDS: FUROSEMIDE 40 MG/4 ML VIAL IV SCH ×2 (09:25→21:52)
[2022-07-15] MEDS: ENOXAPARIN 80 MG/0.8 ML SYR SQ SCH ×2 (09:29→21:53)
[2022-07-15] MEDS: SENNA 8.6 MG TAB PO SCH (12:13)
[2022-07-15] MEDS: POLYETHYLENE (MIRALAX) 17 GM PACK PO SCH (12:13)
--- NOTE | 2022-07-15 17:28 | Hospitalist Progress Note ---
Date of Service July 15, 2022 Assessment & Plan (1) SOB (shortness of breath): Plan: 62 y/o M w/ PmHx dermatitis, CAD, CHF, chronic CLL of B-cell type in remission, constipation, HTN, T2DM, HCV admitted for shortness of breath and tachycardia. Shortness of breath/tachycardia: The symptoms have improved Continues on oral diuretic therapy Concerned his symptoms are from abdominal ascites limiting excursion of breathing Origin of ascites is undetermined concern with elevation of CEA could be malignant ascites previous history of hepatitis C however without significant laboratory serology changes with his liver function MELD score from presenting labs this 16 points are 6% 3-month mortality makes me consider is is ascitic fluid from a malignancy and not from liver disease Patient will only permit us to treat his "heart failure". His heart failure is not defined with a systolic or diastolic continue. Lasix continues with no renal distress I was speaking with the intermediate physician with situations that occurred similar to this in the past sometimes patients have need to be tolerated with regard to the refusal of care until they become unable to refuse care as the patient has confirmed he wants to be a full code etc at this point time will employ another 24 hours and continue to try to ask him to permit us to have testing performed . CHF: Suspect chronic systolic heart failure furosemide 40 mg twice daily Due to tachycardia increased metoprolol to 50 twice daily HCV: -Past history of HCV per [facility]. Brings up concern for progressive cirrhosis T2DM: -Glucose 226. -basal bolus insulin -ACHS checks. constipation: -Patient with history of constipation -Had bowel movement during ED course. Chronic CLL in remission: [place] is guarded at this time patient has progressively had worsening what appears to be abdominal ascites without the ability to perform diagnostic t esting DVT Prophylaxis: SCDs (2) CHF (congestive heart failure): (3) HCV (hepatitis C virus): (4) Chronic lymphocytic leukemia of B-cell type in remission: Admission and Anticipated Discharge Date Admission Date: July 10, 2022 Subjective The patient continues to be in denial that he is got a massively expanding abdominal with likely ascites. They are dull to percussion there is no rebound or guarding. Patient is taking laxatives and continues to believe that he is constipated that is causing his symptoms but will not permit any imaging of his stomach to corroborate or refute this. He is in mild to moderate respiratory distress likely from reduction in diaphragmatic excursion due to his massive abdominal expansion He has some bilateral rib pain worse on the left likely likely also due to abdominal expansion Physical Exam Physical Exam: Awake alert appropriate, eating lunch, drinking laxatives Abdomen is dull and distended no focal tenderness consistent with ascites Does have some rib discomfort on the left side Results & Data Results & Data Vital Signs (Past 12 Hours) Vital Signs Temp Pulse Resp BP Pulse Ox O2 Del Method O2 Flow Rate 07/15/22 16:00 98.4 F 91 H 18 145/88 H 92 Room Air 07/15/22 09:30 Nasal Cannula 2 07/15/22 08:00 97.9 F 92 H 16 155/96 H 94 Room Air PG Care Time/CCT Total # of Minutes Spent Total Time Spent with Patient: Total time spent is greater than 50% in coordination of care (as documented) at patient's floor/unit and/or counseling patient: Coding Level of Care Code 95828 SUB INP/OBS CARE /MIN Diagnoses SOB (shortness of breath) R06.02 CHF (congestive heart failure) I50.9 HCV (hepatitis C virus) B19.20 Chronic lymphocytic leukemia of B-cell type in remission C91.11
[2022-07-15] MEDS: COUGH DROP (SUGAR FREE) LOZ 24 LOZ/1 BOX BUCCAL PRN (19:48)
[2022-07-16] MEDS: INSULIN ASPART PER UNIT CHARGE SC SCH ×2 (09:12→13:39)
[2022-07-16] MEDS: ATORVASTATIN 20 MG TAB PO SCH (09:12)
[2022-07-16] MEDS: FUROSEMIDE 40 MG/4 ML VIAL IV SCH (09:13)
[2022-07-16] MEDS: LANTUS PER UNIT CHARGE SQ SCH (09:13)
[2022-07-16] MEDS: PSYLLIUM or GUAR GUM FIBER POWDER PACKET PO SCH (09:15)
[2022-07-16] MEDS: METOPROLOL TARTRATE 50 MG TAB PO SCH (09:15)
[2022-07-16] MEDS: SENNA 8.6 MG TAB PO SCH (09:16)
[2022-07-16] MEDS: POTASSIUM CHLORIDE PWD 20 MEQ PACK PO SCH (09:16)
[2022-07-16] MEDS: ENOXAPARIN 80 MG/0.8 ML SYR SQ SCH (09:16)
[2022-07-16] MEDS: POLYETHYLENE (MIRALAX) 17 GM PACK PO SCH (09:16)
[2022-07-16 10:27] LABS: AFP Tumor Marker Serum 468.5 ng/mL (<6.1)
--- NOTE | 2022-07-16 16:52 | Discharge Summary ---
Date of Service July 16, 2022 Admission HPI Per Admitting Provider Ramiro is a 62 year old male with past medical history of dermatitis, CAD, CHF, chronic CLL of B-cell type in remission, constipation, HTN, T2DM, HCV coming in for shortness of breath. Patient states six months ago he was having episodes of intermittent feeling of aceves apple disappearing and choking sensation that would come and go. During the episodes he would feel a strangling sensation and it would be difficult to swallow. He says this has gotten worse over the past few months. He comes in today for shortness of breath worsening over the past week worse with laying flat. He denies any chest pain, nausea, urinary symptoms, fevers, chills, headaches. He says he vomits non-bloody liquid occasionally with it being most prominent when he's laying down. He endorses constipation with not being able to go for the past 4 or 5 days however had to go during interview at this time. When asked about contrast related reaction patient stated in the past he's had a reaction of feeling like his throat was tightening however this is able to be treated and mitigated with treatment with Benadryl and epinephrine. He has never had to have a breathing tube for reaction to contrast and has not had any rash or full anaphylaxis reaction. In the ED WBC 6.87, Hgb 14.6, PT 13.7, INR 1.3, Creat 0.92, glucose 226, T bili 2.4, AST 59, ALT 42, trop 4.1, Lipase 51. CXR w/ possible bibasilar subsegmental atelectasis, mild cardiomegaly and mild congestive change. When speaking to his provider Tian at [facility] it was relayed he has a history of HCV and has refused treatment at the [facility] facility after being offered several times. He follows with oncology for the CLL in remission, without any discernable chemo or radiation treatment, just surveillance, sees Dr. Lambert in [place] through the [facility]. No history of cirrhosis, last APRI score 1.391, F1 category. He thinks he has scabies, was biopsied by dermatology and was found to have folliculitis. In the [facility] he picks his skin chronically, confirmed both not cancer and not scabies. Principal Diagnosis Shortness of breath secondary to reduced excursion from from abdominal distention Discharge Exam Patient looks to have sarcopenia with a markedly distended abdomen which is dull and consistent with fluid such as ascites but refused further work-up Discharge Data Allergies Allergy/AdvReac Type Severity Reaction Status Date / Time IV dye Allergy Unknown Patient Uncoded 07/13/16 15:20 unsure of reaction but recalls being treated. Consultations 07/10/22 10:40 ED Decision to Admit Stat 07/10/22 15:35 Consult Psychiatry Routine Hospital Course (1) SOB (shortness of breath): 62 y/o M w/ PmHx dermatitis, CAD, CHF, chronic CLL of B-cell type in remission, constipation, HTN, T2DM, HCV admitted for shortness of breath and tachycardia. Shortness of breath/tachycardia: The symptoms have improved Continues on oral diuretic therapy Concerned his symptoms are from abdominal ascites limiting excursion of breathing Origin of ascites is undetermined concern with elevation of CEA could be mal ignant ascites previous history of hepatitis C however without significant laboratory serology changes with his liver function MELD score from presenting labs this 16 points are 6% 3-month mortality makes me consider is is ascitic fluid from a malignancy and not from liver disease Patient will only permit us to treat his "heart failure". His heart failure is not defined with a systolic or diastolic continue. I was speaking with the [facility] physician with situations that occurred similar to this in the past sometimes patients have need to be tolerated with regard to the refusal of care until they become unable to refuse care as the patient has confirmed he wants to be a full code etc at this point time CHF: Suspect chronic systolic heart failure furosemide 40 mg twice daily Continue metoprolol HCV: -Past history of HCV per [facility]. Brings up concern for progressive cirrhosis T2DM: -Glucose 226. Continue sliding scale insulin constipation: -Patient with history of constipation -Had bowel movement during ED course. Chronic CLL in remission: [place] is guarded at this time patient has progressively had worsening what appears to be abdominal ascites without the ability to perform diagnostic testing Fully anticipate return to the facility once the patient is unable to refuse testing as he is a full code at this time recommend facility reach out to family to help further make decisions once patient becomes obtunded (2) CHF (congestive heart failure): (3) HCV (hepatitis C virus): (4) Chronic lymphocytic leukemia of B-cell type in remission: Total Time Total Time Spent Total Time Spent (In Minutes): It required greater than 30 minutes to prepare this patient for discharge Discharge Plan Discharge Items [facility]position[facility] Reason For Visit: DYSPNEA, TACHYCARDIA. SUSPECTED VTE/PE Discharge Diagnosis: ascites hypoxia from decreased lung excursion Activity: Per Instructions section Activity Comment: limiti exertion Non-emergency contact: Primary Care Provider Call non-emergency contact if: your symptoms worsen Follow-up/Referrals: Katie SPEAR [Primary Care Provider] - Diet: Low Potassium (2gm) Addtl Attending Provider Instructions: I believe that there is a catastrophic health issue occurring in your abdomen causing increased fluid and distension without permission to do diagnostic testing, we cannot effect any improvement. You do have elevation of a tumor marker that may mean this could be from cancer you also have cirrhosis, likely from hepatitis C, that could be causing the issue try to have a low salt diet, take a diuretic and laxative Addtl Chief Scientific Officer Provider Instructions: pt will need some supplemental oxygen, likely due to the fact that your abdomen is compressing your lungs and reducing air exchange you have been stable on 2L nasal cannulae oxygen Pending Studies at Discharge: No Stand-Alone Forms: My [facility] Skilled Items Patient informed of condition?: Yes Discharge Level of Care: Other Communicable Disease: No Discharge Prognosis: Deteriorating Lines: None Urinary Catheter: No Medications and DC Order Prescriptions: New sennosides [Senokot] 8.6 mg Tablet 17.2 mg PO QAM Qty: 30 0RF Psyllium Or Guar Gum Fiber Sup [Metamucil Or Nutrisource Fiber Supplement] 1 pkg PO QAM Qty: 30 1RF Continued metoprolol tartrate 25 mg Tablet 0 mg PO BID Qty: 0 Rx Instructions: 25mg dose: Per medical unit at facility, pt takes 1 and 1/2 tabs bid. Novolin R Regular U-100 Insuln 100 unit/mL Solution 0 sliding scale dose SUBCUT USEASDIRECTD Rx Instructions: Per medical unit at facility, pt is supposed to take insulin but he's non compliant and refuses to take it. bumetanide 1 mg Tablet 1 mg PO DAILY Discontinued doxepin [Sinequan] 50 mg Capsule 50 mg PO HS Qty: 0 metformin 1,000 mg Tablet 1,000 mg PO BID Qty: 0 atorvastatin 10 mg Tablet 20 mg PO DAILY Qty: 0 glipizide 5 mg Tablet 5 mg PO BID Qty: 0 Discharge Orders: Discharge Order (Routine); Ordered 07/16/22 Ordered By: Cheng Mosher Admission Data Admit Date/Time: 07/10/22 19:15 Attending Provider: Cheng Mosher Admit Provider: Oleg Chirinos Primary Care Provider: Katie SPEAR Other Providers: Oleg Chirinos ; Era Irizarry ; Nisha Rogers ; Houston Escobar Other Interventions: Discharge Summary Assessment (RN) Last Done: 07/16/22 14:05 Coding Level of Care Code 13090 INP/OBS DISCH >30 MIN Diagnoses SOB (shortness of breath) R06.02 CHF (congestive heart failure) I50.9 HCV (hepatitis C virus) B19.20 Chronic lymphocytic leukemia of B-cell type in remission C91.11
== END 2022-07-16 15:59 | DRG 442 ==
LOC: ED 07:48 → EDINP 19:15 → SUATTDRO 19:15 → 2E 20:43 → 3W 07-13 14:27

== ENCOUNTER 2022-09-13 09:18 | Inpatient (IN) ==
[2022-09-13] MEDS ORDERED: SODIUM CHLORIDE 0.9% 500 ML IV STA (09:20)
[2022-09-13] MEDS ORDERED: HYDROmorphone INJ 0.5 MG/0.5 ML SYR IV STA ×2 (09:27→10:58)
--- NOTE | 2022-09-13 09:29 | Emergency Department Note ---
Impression & Plan Abdominal ascites ADMIT ED Provider Note HPI: The patient is a 62-year-old gentleman with history of hepatitis C, ascites, coronary artery disease, presents emergency department with a chief complaint of worsening abdominal pain and back pain that has been ongoing for 6 months. Patient states that over the past several days he has been getting worsening diffuse abdominal pain and some shortness of breath. Per EMS, patient was hypoxic in the 80s on their arrival, he was placed on increased nasal cannula oxygen at 4 L with good improvement in his oxygenation. Patient was offered BiPAP and declined. On arrival here to the ED the patient is alert, he does display some tachypnea but he is saturating well on 4 L nasal cannula oxygen, complains of some lower chest pain and diffuse abdominal pain, his abdomen is distended consistent with his history of hepatitis C and ascites. He tells me he has not had any recent paracentesis. Patient denies any recent fevers, he is afebrile here in the ED ROS: - Per HPI Differential Diagnosis: Spontaneous bacterial peritonitis, ACS, kidney stone, bowel obstruction, pneumonia, pleural effusion, amongst other potential pathologies. *Outpatient medications and allergy history reviewed. *Pertinent external medical records reviewed. PE: General: Alert, no acute distress HEENT: Normocephalic, trachea midline Eyes: Extraocular eye movement is intact, no scleral erythema Pulmonary: Slightly diminished breath sounds bilaterally with tachypnea Cardio: Regular rate and rhythm GI: Abdomen is distended diffusely, nontender to palpation, no rigidity : No suprapubic tenderness MSK: No evidence of trauma or malformation of the extremities, no edema Skin: No evidence of rash Neuro: Alert, no focal deficits Psychiatric: Cooperative quarter folder: (As interpreted by myself): - An order was placed for continuous cardiac monitoring - Patient was noted to be in sinus rhythm with a rate of 70 EKG: (As interpreted by myself): Rate: 67 Rhythm: Normal sinus rhythm Intervals: QTc 502 ms, otherwise within normal limits ST changes: No ST elevation Time: 0924 Interventions provided in ED: -IV Dilaudid, IV albumin Medical Decision Making: Shortly after the patient arrived IV was established and lab work ordered. Patient was given IV Dilaudid for pain by request, he was also ordered a dose of IV albumin for mild hypotension in the 90s. Patient has not had any recent fevers, his abdominal exam reveals distention without any significant tenderness or rigidity. Lab work shows no leukocytosis, hemoglobin is normal, platelet count is reduced at 77 which is slightly worse than the patient's baseline and likely related to his underlying liver disease. INR is 1.4, CMP shows a mildly elevated creatinine 1.62, suspect an element of hepatorenal syndrome, troponin is mildly elevated at 23, EKG does not show any acute ischemic changes. Ammonia is actually slightly low at 14.0, lipase is normal. Chest x-ray shows low lung volumes with bibasilar densities. CT imaging of the abdomen pelvis without contrast (patient has IV contrast allergy) was obtained and shows large volume ascites, bilateral pleural effusions I suspect is also related to ascites, as well as finding of an obstructing kidney stone in the left ureter. Patient's pain is nonfocal, I suspect that it is more related to his distention secondary to ascites as opposed to kidney stone, I did however discuss the case with the on-call urology midlevel provider, Joe Marin NP, and urology service is in agreement for consultation as the patient will be admitted for further management. I do suspect that the patient will need a therapeutic paracentesis done in the near future but this is not emergently indicated. Urinalysis is pending at the time of admission, will defer antibiotic therapy to the inpatient team following urinalysis results. Patient is not febrile, he has no leukocytosis or neutrophilic predominance on differential, low suspicion for sepsis at this time. I suspect that his mild hypotension is likely related to his ascites and he was therefore ordered albumin in the ED. Case was then discussed with the on-call hospitalist Dr. Francis, who was in agreement to admit the patient for further management. Prior to admission on my reassessment patient's blood pressure is 101 systolic, he is alert, he is otherwise in no acute distress. Pain is improved following IV Dilaudid here in the ED. Critical care time: 38 minutes -Stabilization of patient with hypoxia in the field (less than 90% on 2 L nasal cannula oxygen ) requiring increased supplemental oxygen for stabilization, time spent at the bedside, discussion with other healthcare providers and arrangement of admission Consultants: -Urology service, Dr. Rea -Hospitalist, Dr. Francis Disposition discussion held by myself with: Patient and [facility] staff at bedside Diagnosis: 1. Abdominal pain, acute 2. Cirrhosis with ascites, acute on chronic 3. Kidney stone, left-sided, acute, with hydronephrosis 4. Dyspnea with increased oxygen requirement 5. Bilateral pleural effusions Disposition: Admission Houston Arriaga DO Emergency Medicine Past Med/Surg History Social History Smoking Status: Former smoker Hx Alcohol Use: No Hx Substance Use: Yes Preferred Language: [place] Communication Ability: Effective Press Cleaner Required: No Beliefs That Will Affect Care: None Current Living Situation: Legal Guardian and Other Current Living Situation Comment: [facility] Feels Safe at Home: Yes Allergies Allergies Allergy/AdvReac Type Severity Reaction Status Date / Time IV dye Allergy Unknown Patient Uncoded 09/13/22 11:32 unsure of reaction but recalls being treated. Home Meds Home Medications Medication Instructions Recorded Confirmed Clindamycin 1% Solution 1 applic topical DAILY 09/13/22 09/13/22 aluminum-mag hydroxide-simethicone 30 ml PO DAILY PRN heart burn 09/13/22 09/13/22 200 mg-200 mg-20 mg/5 mL oral susp benzonatate 200 mg capsule 200 mg PO BID 09/13/22 09/13/22 benzoyl peroxide 10 % topical 1 applic topical DAILY 09/13/22 09/13/22 cleanser bisacodyl 5 mg tablet,delayed 10 mg PO BID PRN Constipation 09/13/22 09/13/22 release bumetanide 1 mg tablet 1 mg PO DAILY 09/13/22 09/13/22 docusate sodium 250 mg capsule 250 mg PO BID PRN Constipation 09/13/22 09/13/22 hydroxyzine pamoate 50 mg capsule 50 mg PO BID 09/13/22 09/13/22 insulin regular human 100 unit/mL 0 unit subcut DIRECTED 09/13/22 09/13/22 injection solution (Novolin R Regular U-100 Insulin) metoprolol tartrate 25 mg tablet 37.5 mg PO BID 09/13/22 09/13/22 minocycline 100 mg capsule 100 mg PO DAILY 09/13/22 09/13/22 spironolactone 25 mg tablet 25 mg PO BID 09/13/22 09/13/22 Results & Data (ED) Vital Signs Vital Signs - 24 hr 09/13/22 09:29 09/13/22 09:47 09/13/22 10:31 Temperature 36.4 C L Temperature Source Oral Pulse Rate 68 67 Pulse Rate [Bilateral] Pulse Rate from SpO2 Sensor Respiratory Rate 34 H Respiratory Effort / Characteristics Spontaneous Labored Spontaneous Respiratory Depth Shallow Shallow Blood Pressure 92/73 L Blood Pressure [Right Arm] Blood Pressure Mean 79 Blood Pressure Mean [Right Arm] Blood Pressure Position Sitting Pulse Oximetry 93 Oxygen Delivery Method Nasal Cannula Oxygen Flow Rate 4 Sepsis Recent Fever Within 48 Hours No Sepsis New/Unexplained Change in Mental Status N/A Sepsis Action Taken by Nursing No Action Required 09/13/22 09:50 09/13/22 10:30 09/13/22 11:26 Temperature Temperature Source Pulse Rate 75 Pulse Rate [Bilateral] 84 Pulse Rate from SpO2 Sensor 68 68 Respiratory Rate 32 H 31 H 30 H Respiratory Effort / Characteristics Respiratory Depth Blood Pressure 99/66 L 101/67 Blood Pressure [Right Arm] 86/66 L Blood Pressure Mean 77 78 Blood Pressure Mean [Right Arm] 72 Blood Pressure Position Pulse Oximetry 93 93 95 Oxygen Delivery Method Nasal Cannula Nasal Cannula Room Air Oxygen Flow Rate 4 4 Sepsis Recent Fever Within 48 Hours Sepsis New/Unexplained Change in Mental Status Sepsis Action Taken by Nursing Laboratory Data 09/13/22 10:04 09/13/22 10:04 Lab Results 09/13/22 09/13/22 09/13/22 Range/Units 10:04 10:04 10:04 WBC 8.18 (4.8-10.8) K/ul RBC 5.52 (4.70-6.10) M/uL Hgb 15.7 (14.0-18.0) g/dl Hct 44.2 (42.0-52.0) % MCV 80.1 (80.0-100.0) fL MCH 28.4 (25.0-34.0) pg MCHC 35.5 (32.0-36.0) g/dL RDW Std Deviation 48.2 H (36.4-46.3) fL RDW Coeff of Gilberto 17.7 H (11.5-14.5) % Plt Count 77 L (130-400) K/uL MPV 11.8 (9.4-12.4) fL Immature Gran % (Auto) 0.2 % Neut % (Auto) 32.4 % Lymph % (Auto) 60.4 % Luna % (Auto) 6.4 % Eos % (Auto) 0.2 % Baso % (Auto) 0.4 % Neut # (Auto) 2.65 (1.40-6.50) K/uL Lymph # (Auto) 4.94 H (1.2-3.4) K/uL Luna # (Auto) 0.52 (0.11-0.59) K/uL Eos # (Auto) 0.02 (0-0.50) K/uL Baso # (Auto) 0.03 (0-0.2) K/uL Immature Gran # (Auto) 0.02 (0.01-0.20) K/uL Absolute Nucleated RBC 0.03 (0-0.12) K/uL Nucleated RBC % (auto) 0.4 % Platelet Estimate Decreased L (Normal) Ovalocytes 1+ Echinocytes 2+ PT 15.5 H (9.0-12.0) Seconds INR 1.4 H (0.9-1.1) Sodium 133 L (136-145) mmol/L Potassium 4.5 (3.5-5.1) mmol/L Chloride 92 L (98-107) mmol/L Carbon Dioxide 30 (21-32) mmol/L Anion Gap 11 (3-11) BUN 38 H (6-23) mg/dl Creatinine 1.62 H (0.6-1.4) mg/dl Est Cr Clr Drug Dosing 49.1 ml/min Est GFR ( Amer) 51.2 ml/min Est GFR (Non-Af Amer) 44.2 ml/min BUN/Creatinine Ratio 23.5 H (10-20) Glucose 149 H (70-99(Fasting)) mg/dl Calcium 9.1 (8.6-10.3) mg/dl Total Bilirubin 2.6 H (0.2-1.0) mg/dl AST 60 H (13-39) U/L ALT 34 (7-52) U/L Alkaline Phosphatase 106 H (34-104) U/L Ammonia (18-72) umol/L Troponin I High Sens 23.2 H (0-20) pg/ml Total Protein 4.2 L (6.0-8.3) gm/dl Albumin 2.5 L (3.4-5.0) gm/dl Globulin 1.7 L (2.5-4.0) gm/dl Albumin/Globulin Ratio 1.5 (0.9-2) Lipase 19 (11-82) U/L SARS-CoV-2, RNA, NAAT (NEGATIVE) 09/13/22 09/13/22 Range/Units 10:10 11:30 WBC (4.8-10.8) K/ul RBC (4.70-6.10) M/uL Hgb (14.0-18.0) g/dl Hct (42.0-52.0) % MCV (80.0-100.0) fL MCH (25.0-34.0) pg MCHC (32.0-36.0) g/dL RDW Std Deviation (36.4-46.3) fL RDW Coeff of Gilberto (11.5-14.5) % Plt Count (130-400) K/uL MPV (9.4-12.4) fL Immature Gran % (Auto) % Neut % (Auto) % Lymph % (Auto) % Luna % (Auto) % Eos % (Auto) % Baso % (Auto) % Neut # (Auto) (1.40-6.50) K/uL Lymph # (Auto) (1.2-3.4) K/uL Luna # (Auto) (0.11-0.59) K/uL Eos # (Auto) (0-0.50) K/uL Baso # (Auto) (0-0.2) K/uL Immature Gran # (Auto) (0.01-0.20) K/uL Absolute Nucleated RBC (0-0.12) K/uL Nucleated RBC % (auto) % Platelet Estimate (Normal) Ovalocytes Echinocytes PT (9.0-12.0) Seconds INR (0.9-1.1) Sodium (136-145) mmol/L Potassium (3.5-5.1) mmol/L Chloride (98-107) mmol/L Carbon Dioxide (21-32) mmol/L Anion Gap (3-11) BUN (6-23) mg/dl Creatinine (0.6-1.4) mg/dl Est Cr Clr Drug Dosing ml/min Est GFR ( Amer) ml/min Est GFR (Non-Af Amer) ml/min BUN/Creatinine Ratio (10-20) Glucose (70-99(Fasting)) mg/dl Calcium (8.6-10.3) mg/dl Total Bilirubin (0.2-1.0) mg/dl AST (13-39) U/L ALT (7-52) U/L Alkaline Phosphatase (34-104) U/L Ammonia 14.0 L (18-72) umol/L Troponin I High Sens (0-20) pg/ml Total Protein (6.0-8.3) gm/dl Albumin (3.4-5.0) gm/dl Globulin (2.5-4.0) gm/dl Albumin/Globulin Ratio (0.9-2) Lipase (11-82) U/L SARS-CoV-2, RNA, NAAT NEGATIVE (NEGATIVE) Administered Medications Discontinued Medications Hydromorphone HCl (Hydromorphone Inj 0.5 Mg/0.5 Ml Syr) 0.5 mg IV NOW STA Stop: 09/13/22 09:28 Last Admin: 09/13/22 10:18 Dose: 0.5 mg Documented By: KOKI Hydromorphone HCl (Hydromorphone Inj 0.5 Mg/0.5 Ml Syr) 0.5 mg IV NOW STA Stop: 09/13/22 10:59 Last Admin: 09/13/22 11:39 Dose: 0.5 mg Documented By: PANFILO Sodium Chloride (Nss) 500 mls @ 999 mls/hr IV .Q31M STA Stop: 09/13/22 09:50 Last Infusion: 09/13/22 12:08 Dose: 0 mls/hr Documented By: Infusion: 09/13/22 12:06 Dose: 0 mls/hr Documented By: Admin: 09/13/22 11:39 Dose: 999 mls/hr Documented By: PANFILO Albumin Human (Albumin 5%) 250 mls @ 500 mls/hr IV ONE ONE Stop: 09/13/22 10:21 Last Infusion: 09/13/22 12:05 Dose: 0 mls/hr Documented By: Admin: 09/13/22 10:52 Dose: 500 mls/hr Documented By: KOKI Imaging Data Radiologist's Impression: Chest X-Ray 09/13/22 09:20 XR chest 1V portable HISTORY: Chest pain, nonspecific COMPARISON: Chest 07/13/2022. FINDINGS: There are low lung volumes. No pneumothorax. The cardiac silhouette remains mildly enlarged. No evidence for pulmonary edema. The upper lung zones remain clear. Bibasilar linear densities favor subsegmental atelectasis. No significant pleural effusions. Old, healed right clavicle fracture. IMPRESSION: 1. No significant change compared to the prior study. 2. Low lung volumes with bibasilar linear densities. This favors subsegmental atelectasis. A pneumonia could also have a similar appearance in the appropriate clinical setting. ACT 112: Negative or not required by law. Electronically signed by: Rick Finley M.D. 09/13/2022 10:30 AM Abdomen/Pelvis CT 09/13/22 09:[address] WITHOUT CONTRAST CT DOSE: 1380.67 mGy.cm HISTORY: Acute generalized abdominal pain with distention abd pain, ascites, IV contrast allx TECHNIQUE: Multiaxial CT images of the abdomen and pelvis were performed without contrast. A dose lowering technique was utilized adhering to the principles of ALARA. COMPARISON STUDY: 07/14/2016 FINDINGS: Limited exam without the use of contrast. Coronary artery calcifications. Small pericardial effusion. [id number] pleural effusions with dependent bibasilar consolidation. Mild right hemidiaphragmatic elevation. No pneumatosis or pneumoperitoneum identified. The unenhanced spleen is mildly enlarged at 14 cm. Moderately atrophic pancreas. Unremarkable adrenal glands. Cholelithiasis with a 3 cm gallstone. Contracted gallbladder. No biliary ductal dilation. Cirrhotic liver with progressive atrophy compared to the prior study. No hepatic mass identified. There are greater than 6 nonobstructing calculi of the right kidney measuring up to 6 mm. Mild right-sided pelvocaliectasis without lizzette hydronephrosis or ureteral calculi. Punctate nonobstructing calculi in the mid to inferior pole left kidn ey. Cortical thinning of the kidneys with mild probable scarring in the superior pole right kidney. Moderate to severe left-sided hydroureteronephrosis secondary to a 1.2 cm calculus within the proximal left ureter at the level of L3-L4. Chronic capsular calcifications within the mid inferior pole left kidney with adjacent retroperitoneal scarring resulting in posterior medial retraction of the left ureter. Prostatomegaly. Unremarkable urinary bladder with suggestion of chronic outlet obstruction. Atherosclerosis of the aorta. Anasarca with large volume of abdominal pelvic ascites. Abdominal varicosities. Mild distal esophageal wall thickening with paraesophageal varicosities. Specific borderline enlarged periportal-hepatic lymph nodes including a 1.3 cm periportal 49. Findings may be secondary to chronic liver disease. Colonic diverticulosis. Normal appendix. Unremarkable soft tissues. No acute fracture. IMPRESSION: 1. Moderate to severe left-sided hydroureteronephrosis secondary to an obstructing 1.2 cm calculus of the upper to mid left ureter. 2. No bowel obstruction or bowel wall thickening. 3. Cirrhosis with stigmata of portal venous hypertension including large volume of abdominopelvic ascites, mild splenomegaly with abdominal varicosities. 4. Ugxty-va-uzvptiqz layering pleural effusions with small pericardial effusion and anasarca. 5. Colonic diverticulosis. 6. Cholelithiasis. 7. Bilateral nephrolithiasis. ACT 112: Negative or not required by law. The above report was generated using voice recognition software. It may contain grammatical, syntax or spelling errors. Electronically signed by: Dae Eli M.D. 09/13/2022 11:18 AM Discharge Plan Visit Data Chief Complaint: Chest Pain ED Provider: Houston Arriaga Discharge Problem: Abdominal ascites Forms Stand Alone Forms: My [facility] [employer] Prescriptions Prescriptions: No Action benzonatate 200 mg Capsule 200 mg PO BID minocycline 100 mg Capsule 100 mg PO DAILY benzoyl peroxide 10 % Cleanser 1 applic TOPICAL DAILY hydroxyzine pamoate 50 mg Capsule 50 mg PO BID spironolactone 25 mg Tablet 25 mg PO BID Novolin R Regular U100 Insulin 100 unit/mL Solution 0 unit SUBCUT DIRECTED Rx Instructions: 150-200=2units, 201-250=4, 251-300=6, 301-350=8, 351-400=10, 401-450=12. > 450 CALL bumetanide 1 mg Tablet 1 mg PO DAILY bisacodyl 5 mg Tablet,Delayed Release (Dr/Ec) 10 mg PO BID PRN (Reason: Constipation) alum-mag hydroxide-simeth [Almacone] 200-200-20 mg/5 mL Suspension 30 ml PO DAILY PRN (Reason: heart burn) Rx Instructions: administer between meals and at bedtime docusate sodium 250 mg Capsule 250 mg PO BID PRN (Reason: Constipation) metoprolol tartrate 25 mg Tablet 37.5 mg PO BID Rx Instructions: Take 1 & 1/2 tab per dose. Clindamycin 1% Solution 1 applic topical DAILY Rx Instructions: Apply to affected area Referrals Referrals: Katie SPEAR [Primary Care Provider] -
[2022-09-13] MEDS ORDERED: ALBUMIN 5% 250 ML IV ONE (09:52)
--- NOTE | 2022-09-13 10:32 | XRay Report ---
XR chest 1V portable HISTORY: Chest pain, nonspecific COMPARISON: Chest 07/13/2022. FINDINGS: There are low lung volumes. No pneumothorax. The cardiac silhouette remains mildly enlarged . No evidence for pulmonary edema. The upper lung zones remain clear. Bibasilar linear densities favo r subsegmental atelectasis. No significant pleural effusions. Old, healed right clavicle fracture. IMPRESSION: 1. No significant change compared to the prior study. 2. Low lung volumes with bibasilar linear densities. This favors subsegmental atelectasis. A pneumoni a could also have a similar appearance in the appropriate clinical setting. ACT 112: Negative or not required by law. Electronically signed by: Rick Finley M.D. 09/13/2022 10:30 AM
[2022-09-13 10:34] LABS: Hematocrit (blood only) 44.2 % (42.0-52.0); Hemoglobin 15.7 g/dl (14.0-18.0); Mean Corpuscular Hemoglobin 28.4 pg (25.0-34.0); Mean Corpuscular Hgb Conc 35.5 g/dL (32.0-36.0); Mean Corpuscular Volume 80.1 fL (80.0-100.0); RDW Coefficient of Variation 17.7 % (11.5-14.5); RDW Standard Deviation 48.2 fL (36.4-46.3); Red Blood Count 5.52 M/uL (4.70-6.10); White Blood Count 8.18 K/ul (4.8-10.8)
--- NOTE | 2022-09-13 10:39 | Electrocardiogram Report ---
Test Reason : Blood Pressure : / mmHG Vent. 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
[2022-09-13 10:46] LABS: Albumin Globulin Ratio 1.5 (0.9-2); Albumin Level 2.5 gm/dl (3.4-5.0); BUN Creatinine Ratio 23.5 (10-20); Bilirubin,Total 2.6 mg/dl (0.2-1.0); Calcium 9.1 mg/dl (8.6-10.3); Creatinine Clr Calc Pharmacy 49.1 ml/min; Est GFR (African American) 51.2 ml/min; Est GFR (Non-African American) 44.2 ml/min; Globulin 1.7 gm/dl (2.5-4.0); Potassium 4.5 mmol/L (3.5-5.1); Total Protein 4.2 gm/dl (6.0-8.3)
[2022-09-13 10:51] LABS: Troponin I High Sensitivity 23.2 pg/ml (0-20)
[2022-09-13 10:53] LABS: INR 1.4 (0.9-1.1); Prothrombin Time 15.5 Seconds (9.0-12.0)
--- NOTE | 2022-09-13 11:19 | CT Scan Report ---
ABDOMEN AND PELVIS CT WITHOUT CONTRAST CT DOSE: 1380.67 mGy.cm HISTORY: Acute generalized abdominal pain with distention abd pain, ascites, IV contrast allx TECHNIQUE: Multiaxial CT images of the abdomen and pelvis were performed without contrast. A dose lo wering technique was utilized adhering to the principles of ALARA. COMPARISON STUDY: 07/14/2016 FINDINGS: Limited exam without the use of contrast. Coronary artery calcifications. Small pericardial effusion. Rhmva-uv-[id number] pleural effusions with dependent bibasilar consolidation. Mild right hemidiaphragmatic elevation. No pneumatosis or pneumope ritoneum identified. The unenhanced spleen is mildly enlarged at 14 cm. Moderately atrophic pancreas. Unremarkable adrenal glands. Cholelithiasis with a 3 cm gallstone. Contracted gallbladder. No biliary ductal dilation. Ci rrhotic liver with progressive atrophy compared to the prior study. No hepatic mass identified. There are greater than 6 nonobstructing calculi of the right kidney measuring up to 6 mm. Mild right-sided pelvocaliectasis without lizzette hydronephrosis or ureteral calculi. Punctate nonobstructing calculi i n the mid to inferior pole left kidney. Cortical thinning of the kidneys with mild probable scarring in the superior pole right kidney. Moderate to severe left-sided hydroureteronephrosis secondary to a 1.2 cm calculus within the proximal left ureter at the level of L3-L4. Chronic capsular calcificatio ns within the mid inferior pole left kidney with adjacent retroperitoneal scarring resulting in poste rior medial retraction of the left ureter. Prostatomegaly. Unremarkable urinary bladder with suggesti on of chronic outlet obstruction. Atherosclerosis of the aorta. Anasarca with large volume of abdominal pelvic ascites. Abdominal varic osities. Mild distal esophageal wall thickening with paraesophageal varicosities. Specific borderline enlarged periportal-hepatic lymph nodes including a 1.3 cm periportal 49. Findings may be secondary to chronic liver disease. Colonic diverticulosis. Normal appendix. Unremarkable soft tissues. No acut e fracture. IMPRESSION: 1. Moderate to severe left-sided hydroureteronephrosis secondary to an obstructing 1.2 cm calculus of the upper to mid left ureter. 2. No bowel obstruction or bowel wall thickening. 3. Cirrhosis with stigmata of portal venous hypertension including large volume of abdominopelvic asc ites, mild splenomegaly with abdominal varicosities. 4. Jatnb-bd-xopaksdt layering pleural effusions with small pericardial effusion and anasarca. 5. Colonic diverticulosis. 6. Cholelithiasis. 7. Bilateral nephrolithiasis. ACT 112: Negative or not required by law. The above report was generated using voice recognition software. It may contain grammatical, syntax o r spelling errors. Electronically signed by: Dae Eli M.D. 09/13/2022 11:18 AM
[2022-09-13 11:26] LABS: Basophils # (auto) 0.03 K/uL (0-0.2); Basophils % (auto) 0.4 %; Echinocytes 2+; Eosinophils # (auto) 0.02 K/uL (0-0.50); Eosinophils % (auto) 0.2 %; Immature Granulocytes # (auto) 0.02 K/uL (0.01-0.20); Immature Granulocytes % (auto) 0.2 %; Lymphocytes # (auto) 4.94 K/uL (1.2-3.4); Lymphocytes % (auto) 60.4 %; Mean Platelet Volume 11.8 fL (9.4-12.4); Monocytes # (auto) 0.52 K/uL (0.11-0.59); Monocytes % (auto) 6.4 %; Neutrophils # (auto) 2.65 K/uL (1.40-6.50); Neutrophils % (auto) 32.4 %; Nucleated RBC # (auto) 0.03 K/uL (0-0.12); Nucleated RBC % (auto) 0.4 %; Ovalocytes 1+; Platelet Count 77 K/uL (130-400); Platelet Estimate Decreased (Normal)
[2022-09-13] MEDS ORDERED: PHYTONADIONE 10 MG in DEXTROSE 5% 50 ML IV ONE (11:56)
--- NOTE | 2022-09-13 12:00 | History & Physical Report ---
Date of Service September 13, 2022 Assessment & Plan (1) Abdominal ascites: Plan: US paracentesis both therapeutic and diagnostic. Never had this previously therefore will send cell of for culture and pathology. Do not suspect SBP on exam/labs, pain most likely from significant amount of ascites. Given labile current BP - will ask for only 4L to be removed initially with midodrine 5mg PO to be given now and Albumin 25g IV to be given following this Suspect this will need to repeated on Friday (2) Hypotension: Plan: Suspect due to decompensated liver cirrhosis Hold all diuretics and metoprolol Start midodrine 5mg PO TID (3) Acute kidney failure: Plan: Suspect mostly due to his decompensated liver failure and hepatorenal syndrome with substantial intra-abdominal pressure Cannot rule out ureterolithiasis also playing a part and eventual goal as long as he is ameanable to this would be to place a stent although favor paracentesis initially to remove intra-abdominal pressure (4) Ureterolithiasis: Plan: Suspect this is longer standing and not an acute problem. Hydronephrosis chronic appearing per urology. However RBC are new since UA in June. He is not having typically renal colic pain although history taking also limited. Stent placement would likely work much better following paracentesis regardless No current fever to suggest urgent need for ureteral stent, UA with nitrites present (also in June sample) without bacteria - will get blood cultures and prophylactically treat with ceftriaxone (5) Liver cirrhosis: (6) Shortness of breath: Plan: Suspect due to ascites causing compression on diaphragm Should improve with paracentesis (7) Elevated INR: Plan: Give vitamin K 10mg IV to see how much is reversible Repeat INR in AM (8) Odynophagia: Plan: Suspect due to ascites Clear liquids pending SLT consult (9) Diabetes: Plan: HbA1C with AM labs BSG ACHS Novolog: --Goal BSG Range: Low 110 mg/dL, High 140 mg/dL --Correction Factor: 45 mg/dL/unit --Carbohydrate ratio = 15 g/unit --BSGs ACHS if eating, q6h if npo Add basal dosing if needed (10) Chronic lymphocytic leukemia of B-cell type in remission: Plan VTE Prophylaxis - deferred pending paracentesis on admission Diet - low Na, T2DM, clear liquids pending SLT consult Disposition - admit to PCU Admission and Anticipated Discharge Date Admission Date: September 13, 2022 History of Present Illness Chief Complaint: Abdominal pain, shortness of breath Primary Care Provider: RAINER Wilson Ramiro Francois is a 62 year old male who presents to the ER from [facility] via EMS with chest, abdominal and back pain with associated shortness of breath. Very difficult to get a clear history from the patient. He describes the pain as 10/10 severity and repeatedly asking for pain medication. Cannot give me any timeline for his symptoms. Previously not wanting treatment. He denies a history of liver cirrhosis but when I ask him what is causing the fluid in his abdomen, he tells me ascites. When I ask him what is causing the ascites he tells me liver cirrhosis. He has a longstanding history of wanting to be full code but also refusing all treatment and investigations. He reports on this occasion being willing to undergo paracentesis to help him with the pain. He repeatedly asks to be put to sleep for this procedure and when I refuse and tell him there is no reason to do this and this is not something we do he asks me again 5 minutes later. I offered to give him pain medication prior to the procedure for which he is now agreeable. He denies any urinary symptoms. Unknown duration for shortness of breath, reports difficulty taking a deep breath, no change in position. No chest pain. Also notes dysphagia without odynophagia. On discussion with RAINER Wilson RN they report trying to get him to the hospital for some time but he has been refusing. Progressive worsening pain and his shortness of breath led him to come to the ER today. Back pain is possibly new. Allergies Allergy/AdvReac Type Severity Reaction Status Date / Time Gadolinium-Containing Allergy Unknown Patient Verified 09/13/22 12:47 Contrast Medi unsure of reaction but recalls being treated. Iodinated Contrast Media Allergy Unknown Patient Verified 09/13/22 12:47 unsure of reaction but recalls being treated. Home Medications Medication Instructions Recorded Confirmed Type Clindamycin 1% Solution 1 applic topical DAILY 09/13/22 09/13/22 History aluminum-mag hydroxide-simethicone 30 ml PO DAILY PRN heart burn 09/13/22 09/13/22 History 200 mg-200 mg-20 mg/5 mL oral susp benzonatate 200 mg capsule 200 mg PO BID 09/13/22 09/13/22 History benzoyl peroxide 10 % topical 1 applic topical DAILY 09/13/22 09/13/22 History cleanser bisacodyl 5 mg tablet,delayed 10 mg PO BID PRN Constipation 09/13/22 09/13/22 History release bumetanide 1 mg tablet 1 mg PO DAILY 09/13/22 09/13/22 History docusate sodium 250 mg capsule 250 mg PO BID PRN Constipation 09/13/22 09/13/22 History hydroxyzine pamoate 50 mg capsule 50 mg PO BID 09/13/22 09/13/22 History insulin regular human 100 unit/mL 0 unit subcut DIRECTED 09/13/22 09/13/22 History injection solution (Novolin R Regular U-100 Insulin) metoprolol tartrate 25 mg tablet 37.5 mg PO BID 09/13/22 09/13/22 History minocycline 100 mg capsule 100 mg PO DAILY 09/13/22 09/13/22 History spironolactone 25 mg tablet 25 mg PO BID 09/13/22 09/13/22 History Past Med/Surg History Medical History (Updated 09/14/22 @ 07:05 by Taye Francis MD) Abdominal ascites Liver cirrhosis Social History Smoking Status: Never smoker Second Hand Exposure: No; Do You Dip or Chew Tobacco: No; Tobacco Cessation Education Requested by Patient: No Hx Alcohol Use: No Hx Substance Use: No Preferred Language: Kiswahili Communication Ability: Effective Break Out Man Required: No Beliefs That Will Affect Care: None Current Living Situation: Other Current Living Situation Comment: Detention Other Information That Helps Us Care for You: No Feels Safe at Home: Yes Safety Concerns: Feels Safe At This Time Assistive Devices: None Review of Systems Review of Systems: All systems reviewed & are unremarkable except as noted in HPI & below Physical Exam Constitutional: well developed; + not well nourished and no acute distress Eyes: PERRL, conjunctivae normal, anicteric sclerae Respiratory: + tachypneic; + abnormal respiratory effort (poor) Auscultation: lungs clear to auscultation bilaterally; breath sounds present, no diminished lung sounds, no crackles, no rales, no rhonchi and no wheezes Cardiovascular: RRR, no murmur, no edema Gastrointestinal (Abdomen): Inspection/Auscultation: + abdomen distended and normal bowel sounds Percussion/Palpation: + abdomen tender (generalized, mild) and abdomen soft; no guarding and abdomen not rigid Skin: + jaundice Neurologic: moves all extremities and awake; not confused Psychiatric: A+Ox3, euthymic affect Insight: + poor insight Genitourinary: no CVA tenderness Results & Data Results & Data Vital Signs (Past 12 Hours) Vital Signs Temp Pulse Pulse Resp BP BP Pulse Ox 09/13/22 11:26 84 30 H 86/66 L 95 09/13/22 10:30 31 H 101/67 93 09/13/22 09:50 75 32 H 99/66 L 93 09/13/22 09:47 67 09/13/22 09:29 36.4 C L 68 34 H 92/73 L 93 O2 Del Method O2 Flow Rate 09/13/22 11:26 Room Air 09/13/22 10:30 Nasal Cannula 4 09/13/22 09:50 Nasal Cannula 4 09/13/22 09:47 09/13/22 09:29 Nasal Cannula 4 Laboratory Results Abnormal lab results 09/13/22 09/13/22 09/13/22 Range/Units 10:04 10:04 10:04 RDW Std Deviation 48.2 H (36.4-46.3) fL RDW Coeff of Gilberto 17.7 H (11.5-14.5) % Plt Count 77 L (130-400) K/uL Lymph # (Auto) 4.94 H (1.2-3.4) K/uL Platelet Estimate Decreased L (Normal) PT 15.5 H (9.0-12.0) Seconds INR 1.4 H (0.9-1.1) Sodium 133 L (136-145) mmol/L Chloride 92 L (98-107) mmol/L BUN 38 H (6-23) mg/dl Creatinine 1.62 H (0.6-1.4) mg/dl BUN/Creatinine Ratio 23.5 H (10-20) Glucose 149 H (70-99(Fasting)) mg/dl Total Bilirubin 2.6 H (0.2-1.0) mg/dl AST 60 H (13-39) U/L Alkaline Phosphatase 106 H (34-104) U/L Ammonia (18-72) umol/L Troponin I High Sens 23.2 H (0-20) pg/ml Total Protein 4.2 L (6.0-8.3) gm/dl Albumin 2.5 L (3.4-5.0) gm/dl Globulin 1.7 L (2.5-4.0) gm/dl 09/13/22 Range/Units 10:10 RDW Std Deviation (36.4-46.3) fL RDW Coeff of Gilberto (11.5-14.5) % Plt Count (130-400) K/uL Lymph # (Auto) (1.2-3.4) K/uL Platelet Estimate (Normal) PT (9.0-12.0) Seconds INR (0.9-1.1) Sodium (136-145) mmol/L Chloride (98-107) mmol/L BUN (6-23) mg/dl Creatinine (0.6-1.4) mg/dl BUN/Creatinine Ratio (10-20) Glucose (70-99(Fasting)) mg/dl Total Bilirubin (0.2-1.0) mg/dl AST (13-39) U/L Alkaline Phosphatase (34-104) U/L Ammonia 14.0 L (18-72) umol/L Troponin I High Sens (0-20) pg/ml Total Protein (6.0-8.3) gm/dl Albumin (3.4-5.0) gm/dl Globulin (2.5-4.0) gm/dl Diagnostic Findings XR chest 1V portable HISTORY: Chest pain, nonspecific COMPARISON: Chest 07/13/2022. FINDINGS: There are low lung volumes. No pneumothorax. The cardiac silhouette remains mildly enlarged. No evidence for pulmonary edema. The upper lung zones remain clear. Bibasilar linear densities favor subsegmental atelectasis. No significant pleural effusions. Old, healed right clavicle fracture. IMPRESSION: 1. No significant change compared to the prior study. 2. Low lung volumes with bibasilar linear densities. This favors subsegmental atelectasis. A pneumonia could also have a similar appearance in the appropriate clinical setting. ABDOMEN AND PELVIS CT WITHOUT CONTRAST CT DOSE: 1380.67 mGy.cm HISTORY: Acute generalized abdominal pain with distention abd pain, ascites, IV contrast allx TECHNIQUE: Multiaxial CT images of the abdomen and pelvis were performed without contrast. A dose lowering technique was utilized adhering to the principles of ALARA. COMPARISON STUDY: 07/14/2016 FINDINGS: Limited exam without the use of contrast. Coronary artery calcifications. Small pericardial effusion. Qxgpt-sp-vevhgyxk pleural effusions with dependent bibasilar consolidation. Mild right hemidiaphragmatic elevation. No pneumatosis or pneumoperitoneum identified. The unenhanced spleen is mildly enlarged at 14 cm. Moderately atrophic pancreas. Unremarkable adrenal glands. Cholelithiasis with a 3 cm gallstone. Contracted gallbladder. No biliary ductal dilation. Cirrhotic liver with progressive atrop hy compared to the prior study. No hepatic mass identified. There are greater than 6 nonobstructing calculi of the right kidney measuring up to 6 mm. Mild right-sided pelvocaliectasis without lizzette hydronephrosis or ureteral calculi. Punctate nonobstructing calculi in the mid to inferior pole left kidney. Cortical thinning of the kidneys with mild probable scarring in the superior pole right kidney. Moderate to severe left-sided hydroureteronephrosis secondary to a 1.2 cm calculus within the proximal left ureter at the level of L3-L4. Chronic capsular calcifications within the mid inferior pole left kidney with adjacent retroperitoneal scarring resulting in posterior medial retraction of the left ureter. Prostatomegaly. Unremarkable urinary bladder with suggestion of chronic outlet obstruction. Atherosclerosis of the aorta. Anasarca with large volume of abdominal pelvic ascites. Abdominal varicosities. Mild distal esophageal wall thickening with paraesophageal varicosities. Specific borderline enlarged periportal-hepatic lymph nodes including a 1.3 cm periportal 49. Findings may be secondary to chronic liver disease. Colonic diverticulosis. Normal appendix. Unremarkable soft tissues. No acute fracture. IMPRESSION: 1. Moderate to severe left-sided hydroureteronephrosis secondary to an obstructing 1.2 cm calculus of the upper to mid left ureter. 2. No bowel obstruction or bowel wall thickening. 3. Cirrhosis with stigmata of portal venous hypertension including large volume of abdominopelvic ascites, mild splenomegaly with abdominal varicosities. 4. Ckimh-gd-wvhdwykr layering pleural effusions with small pericardial effusion and anasarca. 5. Colonic diverticulosis. 6. Cholelithiasis. 7. Bilateral nephrolithiasis. Medications Administered ER Medications Given: NSS 500ml bolus Dilaudid 0.5mg IV Albumin 5% 250ml Dilaudid 0.5mg IV ECG Rate (beats per minute): 67 Rhythm: normal sinus Findings: + other (diffuse non specific T wave flattening) Comparison ECG Date: from (July 13, 2022) Change: the following changes noted (diffuse non specific T wave flattening) Code Status & VTE Plan Code Status Full VTE Prophylaxis Plan VTE Prophylaxis will be ordered: No PG Care Time/CCT Total # of Minutes Spent Total Time Spent with Patient: Total time spent is greater than 50% in coordination of care (as documented) at patient's floor/unit and/or counseling patient: Coding Level of Care Code 75718 INT INP/OBS CARE 3/75MIN Diagnoses Abdominal ascites R18.8 Hypotension I95.9 Acute kidney failure N17.9 Ureterolithiasis N20.1 Liver cirrhosis K74.60 Shortness of breath R06.02 Elevated INR R79.1 Odynophagia R13.10 Diabetes E11.9 Chronic lymphocytic leukemia of B-cell type in remission C91.11
[2022-09-13] MEDS ORDERED: cefTRIAXone SODIUM 2000MG/70ML D5W IV STA (12:44)
[2022-09-13] MEDS ORDERED: MIDODRINE HCL 2.5 MG TAB PO STA (12:44)
[2022-09-13 13:17] LABS: Appearance Urine Clear (Clear); Bacteria Urine Automated Negative (Negative); Blood Urine 1+ (Negative); Color Urine Orange; Epithelial Cell Urine Auto 0-5 /lpf (0-5); Glucose Urine UA Trace (Negative); Ketones Urine Negative (Negative); Leukocyte Esterase Urine 2+ (Negative); Nitrite Urine Positive (Negative); Protein Urine Trace (Negative); Specific Gravity Urine 1.019 (1.000-1.030); Urobilinogen Urine Negative (Negative)
[2022-09-13 13:23] LABS: Bilirubin Urine 1+ (Negative)
[2022-09-13] MEDS ORDERED: HYDROmorphone INJ 0.5 MG/0.5 ML SYR IV ONE (13:30)
[2022-09-13 13:34] LABS: Calcium Oxalate Crystals Urine Present (None Prsent)
[2022-09-13] MEDS ORDERED: GLUCOSE 40% GEL 15 GM TUBE PO PRN (14:58)
[2022-09-13] MEDS ORDERED: GLUCOSE 10 TAB/TUBE PO PRN (14:58)
[2022-09-13] MEDS ORDERED: ALBUMIN 25% 25 GM/100 ML VIAL IV ONE ×2 (14:58→21:36)
[2022-09-13] MEDS ORDERED: GLUCAGON FOR INJ 1 MG VIAL SQ PRN (14:58)
[2022-09-13] MEDS ORDERED: DEXTROSE 50% 50 ML SYRINGE IV PRN (14:58)
[2022-09-13] MEDS ORDERED: CARBOHYDRATES FOR HYPOGLYCEMIA PO PRN (14:58)
--- NOTE | 2022-09-13 15:22 | Ultrasound Report ---
ULTRASOUND-GUIDED THERAPEUTIC PARACENTESIS: HISTORY: Ascites. Procedure: The procedure and its risks, benefits and alternatives were discussed with the patient and written informed consent was obtained. Preliminary ultrasound of the abdomen was performed to determ ine a safe needle entry site. The right lower quadrant was prepped and draped in the usual sterile fashion. 1% Lidocaine was used f or local anesthesia. A paracentesis needle-sheath was inserted into the peritoneal space using ultras ound guidance. The needle was removed and the sheath was connected to tubing and a vacuum suction dev ice. A total of 4 liters of yellow ascites was aspirated. The sheath was removed and a sterile dressi ng applied. The patient tolerated the procedure well and there were no immediate complications. IMPRESSION: Ultrasound-guided therapeutic paracentesis with aspiration of 4 liters of ascites. ACT 112: Negative or not required by law. Electronically signed by: Rick Finley M.D. 09/13/2022 3:21 PM
[2022-09-13 15:58] LABS: Glucose Peritoneal Fluid 178 mg/dl; LDH Peritoneal Fluid 49 U/L
--- NOTE | 2022-09-13 16:22 | XCELERA ---
[id number]
--- NOTE | 2022-09-13 17:05 | Urology Consultation ---
Date of Consultation September 13, 2022 Assessment & Plan (1) Ureterolithiasis: (2) Acute kidney failure: Plan 62yo/M admitted with abdominal ascites, hypotension, MUKUND, and 1.2cm left ureteral stone. Afebrile, hypotensive. Labs reviewed-no leukocytosis and creatinine 1.62. Continue to trend. Urinalysis with signs of infection. Urine and blood cultures pending. Received IV ceftriaxone. CT reviewed- Suspect the stone has been there for a while and hydronephrosis is chronic appearing. No plan for urological intervention at this time. Patient has significant other issues that need optimized before he would be a candidate for procedure and anesthesia. We will plan to monitor closely. If he develops fevers or other acute changes, we can revisit urgent stent placement. Continue supportive care and antibiotic therapy. Pt was straight cathed earlier for urine specimen. Monitor ability to void. Bladder scan prn. May need to consider Davalos catheter placement. Urology will follow. Please contact us with any questions, concerns, or changes in patient status. Plan of care and imaging reviewed with Dr. Fields. History of Present Illness Attending Physician: Taye Francis MD History of Present Illness 62 year old male who presents to the ER from [facility] via EMS with chest, abdominal and back pain with associated shortness of breath admitted with abdominal ascites, hypotension, MUKUND, ureteral stone. CT abdomen pelvis on arrival demonstrated moderate to severe left-sided hydronephrosis secondary to a 12 mm obstructing stone in the mid left ureter. He is afebrile, hypotensive. Labs show no leukocytosis and Creatinine 1.62. Urinalysis with 1+ blood, positive nitrite, 2+ LE, negative bacteria, calcium oxalate crystals present. Urine and blood cultures pending. Received IV ceftriaxone in the ED. Patient underwent paracentesis with aspiration of [address] abdomen pelvis- 1. Moderate to severe left-sided hydroureteronephrosis secondary to an obstructing 1.2 cm calculus of the upper to mid left ureter. 2. No bowel obstruction or bowel wall thickening. 3. Cirrhosis with stigmata of portal venous hypertension including large volume of abdominopelvic ascites, mild splenomegaly with abdominal varicosities. 4. Ezeux-rn-rdfnjevd layering pleural effusions with small pericardial effusion and anasarca. 5. Colonic diverticulosis. 6. Cholelithiasis. 7. Bilateral nephrolithiasis. Patient examined at bedside this afternoon. Asleep on arrival, awakened to name. No acute distress. ROS limited. Poor historian. Allergies Allergy/AdvReac Type Severity Reaction Status Date / Time Gadolinium-Containing Allergy Unknown Patient Verified 09/13/22 12:47 Contrast Medi unsure of reaction but recalls being treated. Iodinated Contrast Media Allergy Unknown Patient Verified 09/13/22 12:47 unsure of reaction but recalls being treated. Home Medications Medication Instructions Recorded Confirmed Type Clindamycin 1% Solution 1 applic topical DAILY 09/13/22 09/13/22 History aluminum-mag hydroxide-simethicone 30 ml PO DAILY PRN heart burn 09/13/22 09/13/22 History 200 mg-200 mg-20 mg/5 mL oral susp benzonatate 200 mg capsule 200 mg PO BID 09/13/22 09/13/22 History benzoyl peroxide 10 % topical 1 applic topical DAILY 09/13/22 09/13/22 History cleanser bisacodyl 5 mg tablet,delayed 10 mg PO BID PRN Constipation 09/13/22 09/13/22 History release bumetanide 1 mg tablet 1 mg PO DAILY 09/13/22 09/13/22 History docusate sodium 250 mg capsule 250 mg PO BID PRN Constipation 09/13/22 09/13/22 History hydroxyzine pamoate 50 mg capsule 50 mg PO BID 09/13/22 09/13/22 History insulin regular human 100 unit/mL 0 unit subcut DIRECTED 09/13/22 09/13/22 History injection solution (Novolin R Regular U-100 Insulin) metoprolol tartrate 25 mg tablet 37.5 mg PO BID 09/13/22 09/13/22 History minocycline 100 mg capsule 100 mg PO DAILY 09/13/22 09/13/22 History spironolactone 25 mg tablet 25 mg PO BID 09/13/22 09/13/22 History Patient History Medical History (Updated 09/13/22 @ 13:29 by Taye Francis MD) Abdominal ascites Liver cirrhosis Social History Smoking Status: Never smoker Second Hand Exposure: No; Do You Dip or Chew Tobacco: No; Tobacco Cessation Education Requested by Patient: No Hx Alcohol Use: No Hx Substance Use: No Preferred Language: Tajik Communication Ability: Effective Business Proposal Rep Required: No Beliefs That Will Affect Care: None Current Living Situation: Other Current Living Situation Comment: [place] Other Information That Helps Us Care for You: No Feels Safe at Home: Yes Safety Concerns: Feels Safe At This Time Assistive Devices: None Review of Systems Review of Systems: All systems reviewed & are unremarkable except as noted in HPI & below Physical Exam Constitutional: + ill appearing; no acute distress Neck: normal visual inspection Respiratory: normal respiratory effort; no respiratory distress and no labored breathing Musculoskeletal: Head/Neck/Chest: normocephalic Skin: No visible rashes or lesions to exposed skin areas Neurologic: awake Psychiatric: Orientation: alert and cooperative Results & Data Vital Signs (Past 12 Hours) Vital Signs Temp Pulse Pulse Resp BP BP Pulse Ox 09/13/22 15:18 62 09/13/22 15:18 37 C 09/13/22 14:58 37 C 56 L 16 96/52 L 95 09/13/22 14:58 09/13/22 14:18 09/13/22 13:48 62 18 115/76 94 09/13/22 11:26 84 30 H 86/66 L 95 09/13/22 10:30 31 H 101/67 93 09/13/22 09:50 75 32 H 99/66 L 93 09/13/22 09:47 67 09/13/22 09:29 36.4 C L 68 34 H 92/73 L 93 Pulse Ox O2 Del Method O2 Del Method O2 Flow Rate O2 Flow Rate 09/13/22 15:18 09/13/22 15:18 09/13/22 14:58 Nasal Cannula 4 09/13/22 14:58 95 Nasal Cannula 4 09/13/22 14:18 Room Air 09/13/22 13:48 09/13/22 11:26 Room Air 09/13/22 10:30 Nasal Cannula 4 09/13/22 09:50 Nasal Cannula 4 09/13/22 09:47 09/13/22 09:29 Nasal Cannula 4 PG Care Time/CCT Total # of Minutes Spent Total Time Spent with Patient: Total time spent is greater than 50% in coordination of care (as documented) at patient's floor/unit and/or counseling patient: Coding Level of Care Code 58735 IN/OBS CONSULT LVL 3,45M Diagnoses Ureterolithiasis N20.1 Acute kidney failure N17.9
[2022-09-13] MEDS: INSULIN ASPART PER UNIT CHARGE SC SCH ×2 (17:42→21:45)
[2022-09-13] MEDS: MIDODRINE HCL 2.5 MG TAB PO SCH (17:42)
[2022-09-13] MEDS: HYDROmorphone INJ 0.5 MG/0.5 ML SYR IV PRN (18:17)
[2022-09-13 18:59] LABS: Appearance Peritoneal Fluid Clear; Basophils, Fluid 1 %; Color Peritoneal Fluid Yellow; Lymphocytes, Fluid 47 %; Mono,Macrophage,Mesothelial 47 %; Neutrophils, Fluid 5 %; RBC Peritoneal Fluid Auto < 2000 /uL; WBC Peritoneal Fluid Auto 43 /ul (0-300)
[2022-09-13] MEDS: hydrOXYzine HCl 25 MG TAB PO SCH (21:21)
--- NOTE | 2022-09-13 21:47 | Communication Note ---
Date of Service: September 13, 2022 Notified at 9:13 PM by nurse Zainab Echeverria that patient had a bag of IV albumin sitting in the room and opened and that there was no LOC number entered into the computer. Per the reporting nurse, her charge nurse strongly suspected that albumin had not been administered. Reviewed patient's chart, which noted it had been infused at 17:44 by nurse Mandi Canales. Patient's blood pressure at the time of notification was 94/62. Reordered one- time dose of IV albumin 25%. Resident Activity Tracking Resident Involvement: Resident Care Provided and Patient Service Coordinator Coverage Note Care Provided: Adult Hospital Medicine
[2022-09-14] MEDS: INSULIN ASPART PER UNIT CHARGE SC SCH ×4 (08:15→20:28)
[2022-09-14] MEDS: hydrOXYzine HCl 25 MG TAB PO SCH ×2 (08:22→21:06)
[2022-09-14] MEDS: MIDODRINE HCL 2.5 MG TAB PO SCH ×3 (08:22→16:25)
[2022-09-14] MEDS: HYDROmorphone INJ 0.5 MG/0.5 ML SYR IV PRN (08:30)
[2022-09-14] MEDS ORDERED: HYDROmorphone INJ 0.5 MG/0.5 ML SYR IV PRN (10:09)
[2022-09-14 12:32] LABS: Albumin Level 2.8 gm/dl (3.4-5.0); BUN Creatinine Ratio 25.2 (10-20); Calcium 9.1 mg/dl (8.6-10.3); Creatinine Clr Calc Pharmacy 50.4 ml/min; Est GFR (African American) 55.8 ml/min; Est GFR (Non-African American) 48.1 ml/min; Globulin 1.4 gm/dl (2.5-4.0); Potassium 3.9 mmol/L (3.5-5.1); Total Protein 4.2 gm/dl (6.0-8.3)
[2022-09-14 12:38] LABS: Hematocrit (blood only) 37.4 % (42.0-52.0); Hemoglobin 13.4 g/dl (14.0-18.0); Mean Corpuscular Hemoglobin 28.3 pg (25.0-34.0); Mean Corpuscular Hgb Conc 35.8 g/dL (32.0-36.0); Mean Corpuscular Volume 79.1 fL (80.0-100.0); Mean Platelet Volume 11.6 fL (9.4-12.4); Platelet Count 38 K/uL (130-400); RDW Coefficient of Variation 16.7 % (11.5-14.5); RDW Standard Deviation 47.1 fL (36.4-46.3); Red Blood Count 4.73 M/uL (4.70-6.10); White Blood Count 4.28 K/ul (4.8-10.8)
[2022-09-14 12:42] LABS: INR 1.5 (0.9-1.1); Prothrombin Time 15.6 Seconds (9.0-12.0)
[2022-09-14 13:13] LABS: Estimated Average Glucose 229 mg/dl; Hemoglobin A1C 9.6 % (4.5-5.6)
[2022-09-14 13:23] LABS: Basophils # (auto) 0.02 K/uL (0-0.2); Basophils % (auto) 0.5 %; Echinocytes 1+; Eosinophils # (auto) 0.01 K/uL (0-0.50); Eosinophils % (auto) 0.2 %; Immature Granulocytes # (auto) 0.01 K/uL (0.01-0.20); Immature Granulocytes % (auto) 0.2 %; Lymphocytes # (auto) 2.22 K/uL (1.2-3.4); Lymphocytes % (auto) 51.9 %; Monocytes # (auto) 0.26 K/uL (0.11-0.59); Monocytes % (auto) 6.1 %; Neutrophils # (auto) 1.76 K/uL (1.40-6.50); Neutrophils % (auto) 41.1 %
[2022-09-14] MEDS: cefTRIAXone SODIUM 2,000 MG in DEXTROSE 5% 50 ML IV SCH (13:27)
[2022-09-14 13:29] LABS: Smudge Cells Present
[2022-09-14] MEDS: oxyCODONE HCL IR 5 MG TAB (IMMEDIATE RELEASE) PO PRN (16:28)
--- NOTE | 2022-09-14 16:28 | Hospitalist Progress Note ---
Date of Service September 14, 2022 Assessment & Plan (1) Abdominal ascites: Plan: US guided paracentesis completed yesterday, September 13, for both therapeutic and diagnostic purposes. 4 L of fluid were removed and he continues to remain distended but not tense. Gram stain is negative for any bacteria. No evidence of SBP. (2) Hypotension: Plan: Present on admission. Now resolved. Diuretics and metoprolol are on hold. He is now on midodrine (3) Acute kidney failure: Plan: Mild. Monitor intake and output. Serial labs . Known left ureter stone. Urology consultation appreciated. No intervention at this time (4) Ureterolithiasis: Plan: Known left ureter stone. Urology consultation appreciated. No intervention at this time. (5) Liver cirrhosis: Plan: Likely cause of ascitic fluid accumulation. Will need GI follow-up and continued outpatient evaluation (6) Shortness of breath: Plan: Acute hypoxic respiratory failure present on admission. Currently requiring 2 L of oxygen per nasal cannula. He may need supplemental oxygen at the time of discharge. Incentive spirometry ordered. Suspect some degree of basilar pulmonary atelectasis due to diaphragmatic elevation and pulmonary compression from the intra-abdominal ascites. (7) Elevated INR: Plan: Mild. Due to cirrhosis. Vitamin K administration had no effect. Serial labs (8) Odynophagia: Plan: Suspect due to ascites. Resolved after paracentesis (9) Diabetes: Plan: ADA diet. Sliding scale coverage. (10) Chronic lymphocytic leukemia of B-cell type in remission: Plan: Continued outpatient follow-up with oncology Plan Hopeful return to [facility] tomorrow, September 15 Admission and Anticipated Discharge Date Admission Date: September 13, 2022 Subjective Slow mentation but the retirement guards present states that this is his baseline mental status. INR remains mildly elevated despite vitamin K administration. Gram stain of peritoneal fluid from yesterday's paracentesis is unremarkable. Urology consultation appreciated. No intervention at this time. Anticipate discharge tomorrow, September 15, back to the [facility]. Review of Systems Review of Systems: Constitutional-no fever or chills ENT-no blurred vision, no double vision, no epistaxis, no sore throat Respiratory-no cough, no wheezing, no shortness of breath Cardiac-no palpitations, no chest pain, no syncope GI-no nausea, vomiting, diarrhea, melena, hematochezia. Abdomen chronically distended with ascites -no urinary retention, no urinary incontinence, no dysuria, no hematuria Musculoskeletal-no joint pain, no muscle tenderness Skin-no bruising, no rashes, no pruritus Neuro-slow mentation, no focal weakness Psych-slow mentation. Flat affect Physical Exam Physical Exam: General-alert with slow mentation. He appears to be oriented to name and place. No fevers, no chills HEENT-head atraumatic and normocephalic, pupils equal and reactive to light, extraocular muscles intact Neck-no lymphadenopathy or thyromegaly, trachea midline Chest-clear to auscultation percussion. No rales wheezing or rhonchi Cardiac-regular rate and rhythm, normal S1 and S2 Abdomen-distended, normal bowel sounds, nontender Extremities-no cyanosis, clubbing, or edema Neuro-slow mentation, no focal deficits Psych-flat affect Results & Data Results & Data Vital Signs (Past 12 Hours) Vital Signs Temp Pulse Resp BP Pulse Ox O2 Del Method O2 Flow Rate 09/14/22 15:35 36.5 C 68 18 97/51 L 97 Room Air 09/14/22 08:30 Nasal Cannula 2 09/14/22 11:18 36.4 C L 67 18 104/68 99 Room Air 09/14/22 07:51 36.4 C L 75 18 94/69 L 94 Nasal Cannula 2 Laboratory Results 09/14/22 12:02 09/14/22 12:02 PG Care Time/CCT Total # of Minutes Spent Total Time Spent with Patient: Total time spent is greater than 50% in coordination of care (as documented) at patient's floor/unit and/or counseling patient: Coding Level of Care Code 48193 SUB INP/OBS CARE 3/50MIN Diagnoses Abdominal ascites R18.8 Hypotension I95.9 Acute kidney failure N17.9 Ureterolithiasis N20.1 Liver cirrhosis K74.60 Shortness of breath R06.02 Elevated INR R79.1 Odynophagia R13.10 Diabetes E11.9 Chronic lymphocytic leukemia of B-cell type in remission C91.11
[2022-09-15] MEDS ORDERED: SODIUM CHLORIDE 0.9% 1000ML 500 ML IV ONE (07:29)
[2022-09-15] MEDS: INSULIN ASPART PER UNIT CHARGE SC SCH ×4 (08:26→21:28)
[2022-09-15] MEDS: MIDODRINE HCL 2.5 MG TAB PO SCH (08:27)
[2022-09-15] MEDS: hydrOXYzine HCl 25 MG TAB PO SCH ×2 (08:27→20:22)
--- NOTE | 2022-09-15 09:34 | XRay Report ---
XR chest 1V portable HISTORY: hypoxia COMPARISON: Chest 09/13/2022. FINDINGS: No pneumothorax. Small bilateral pleural effusions and patchy bibasilar densities have slig htly progressed. The heart remains mildly enlarged. No evidence for pulmonary edema. The upper lung z ones are clear. There are low lung volumes. IMPRESSION: Small bilateral pleural effusions and patchy bibasilar densities have slightly progressed. ACT 112: Negative or not required by law. Electronically signed by: Rick Finley M.D. 09/15/2022 9:32 AM
[2022-09-15] MEDS: MIDODRINE HCL 10 MG TAB PO SCH ×2 (11:30→17:00)
[2022-09-15] MEDS: SPIRONOLACTONE 25 MG TAB PO SCH ×2 (11:30→20:22)
--- NOTE | 2022-09-15 13:37 | Hospitalist Progress Note ---
Date of Service September 15, 2022 Assessment & Plan (1) Abdominal ascites: Plan: US guided paracentesis completed on September 13, for both therapeutic and diagnostic purposes. 4 L of fluid were removed and he continues to remain distended but not tense. Gram stain is negative for any bacteria. No evidence of SBP. (2) Hypotension: Plan: He required intravenous fluid boluses morning, September 15. Midodrine dosage uptitrated today, September 15. Metoprolol is on hold. (3) Acute kidney failure: Plan: Mild. Monitor intake and output. Serial labs . Known left ureter stone. Urology consultation appreciated. No intervention at this time (4) Ureterolithiasis: Plan: Known left ureter stone. Urology consultation appreciated. No intervention at this time. (5) Liver cirrhosis: Plan: Likely cause of ascitic fluid accumulation. Will need GI follow-up and continued outpatient evaluation (6) Shortness of breath: Plan: Acute hypoxic respiratory failure present on admission. Currently requiring oxygen per nasal cannula. He may need supplemental oxygen at the time of discharge. Incentive spirometry ordered. Suspect some degree of basilar pulmonary atelectasis due to diaphragmatic elevation and pulmonary compression from the intra-abdominal ascites. (7) Elevated INR: Plan: Mild. Due to cirrhosis. Vitamin K administration had no effect. Serial labs (8) Odynophagia: Plan: Suspect due to ascites. Resolved after paracentesis (9) Diabetes: Plan: ADA diet. Sliding scale coverage. (10) Chronic lymphocytic leukemia of B-cell type in remission: Plan: Continued outpatient follow-up with oncology Plan Eventual return to [facility] Admission and Anticipated Discharge Date Admission Date: September 13, 2022 Subjective No significant change. He required intravenous fluid bolus this morning for hypotension. Midodrine dosage has been uptitrated. Review of Systems Review of Systems: Constitutional-no fever or chills ENT-no blurred vision, no double vision, no epistaxis, no sore throat Respiratory-no cough, no wheezing, no shortness of breath Cardiac-no palpitations, no chest pain, no syncope GI-no nausea, vomiting, diarrhea, melena, hematochezia. Abdomen chronically distended with ascites -no urinary retention, no urinary incontinence, no dysuria, no hematuria Musculoskeletal-no joint pain, no muscle tenderness Skin-no bruising, no rashes, no pruritus Neuro-slow mentation, no focal weakness Psych-slow mentation. Flat affect Physical Exam Physical Exam: General-alert with slow mentation. He appears to be oriented to name and place. No fevers, no chills HEENT-head atraumatic and normocephalic, pupils equal and reactive to light, extraocular muscles intact Neck-no lymphadenopathy or thyromegaly, trachea midline Chest-clear to auscultation percussion. No rales wheezing or rhonchi Cardiac-regular rate and rhythm, normal S1 and S2 Abdomen-distended, normal bowel sounds, nontender Extremities-no cyanosis, clubbing, or edema Neuro-slow mentation, no focal deficits Psych-flat affect Results & Data Results & Data Vital Signs (Past 12 Hours) Vital Signs Temp Pulse Pulse Resp BP Pulse Ox O2 Del Method 09/15/22 11:14 36.8 C 92 H 21 80/62 L 93 Room Air 09/15/22 08:45 86/56 L 09/15/22 08:00 Nasal Cannula 09/15/22 07:00 101 H 09/15/22 04:29 35.8 C L 80 15 96/58 L 95 Nasal Cannula O2 Flow Rate 09/15/22 11:14 09/15/22 08:45 09/15/22 08:00 2 09/15/22 07:00 09/15/22 04:29 4 Laboratory Results 09/14/22 12:02 09/14/22 12:02 PG Care Time/CCT Total # of Minutes Spent Total Time Spent with Patient: Total time spent is greater than 50% in coordination of care (as documented) at patient's floor/unit and/or counseling patient: Coding Level of Care Code 40300 SUB INP/OBS CARE 3/50MIN Diagnoses Abdominal ascites R18.8 Hypotension I95.9 Acute kidney failure N17.9 Ureterolithiasis N20.1 Liver cirrhosis K74.60 Shortness of breath R06.02 Elevated INR R79.1 Odynophagia R13.10 Diabetes E11.9 Chronic lymphocytic leukemia of B-cell type in remission C91.11
[2022-09-15] MEDS: cefTRIAXone SODIUM 2,000 MG in DEXTROSE 5% 50 ML IV SCH (14:47)
[2022-09-15] MEDS: MIDODRINE HCL 10 MG TAB PO ONE ×2 (20:13→20:22)
--- NOTE | 2022-09-15 20:21 | Communication Note ---
Date of Service: September 15, 2022 Patient's BP has been low all day (systolic in 70s/80) and he has been refusing to take oral meds including his midodrine. BP measured on L arm. R arm with IV line. BP of L LE appears better but unsure of how accurate this is. Will administer albumin x2 bags and monitor bp. Otherwise patient alert and appears stable.
[2022-09-15] MEDS ORDERED: ALBUMIN 25% 25 GM/100 ML VIAL IV ONE ×2 (20:24→22:30)
[2022-09-16 08:58] LABS: Albumin Level 3.3 gm/dl (3.4-5.0); BUN Creatinine Ratio 23.2 (10-20); Bilirubin,Total 1.9 mg/dl (0.2-1.0); Calcium 9.6 mg/dl (8.6-10.3); Est GFR (African American) 41.2 ml/min; Est GFR (Non-African American) 35.5 ml/min; Globulin 1.1 gm/dl (2.5-4.0); Potassium 3.7 mmol/L (3.5-5.1); Total Protein 4.4 gm/dl (6.0-8.3)
[2022-09-16] MEDS: hydrOXYzine HCl 25 MG TAB PO SCH ×2 (09:22→20:36)
[2022-09-16] MEDS: MIDODRINE HCL 10 MG TAB PO SCH ×3 (09:22→17:27)
[2022-09-16] MEDS: INSULIN ASPART PER UNIT CHARGE SC SCH ×4 (09:22→22:09)
[2022-09-16] MEDS: SPIRONOLACTONE 25 MG TAB PO SCH ×2 (09:23→20:36)
--- NOTE | 2022-09-16 11:00 | Urology Progress Note ---
Date of Service September 16, 2022 Assessment & Plan (1) Ureterolithiasis: (2) Acute kidney failure: Plan: 62 yo M admitted with abdominal ascites, hypotension, MUKUND, and 1.2cm left ureteral stone. Patient afebrile, low BPs. Appears comfortable, does not verbalize any flank discomfort when asked. Labs reviewed-no leukocytosis, creatinine 1.94. Continue to trend. Urine culture showed no growth, blood cultures showed no growth x 48 hours. Remains on Ceftriaxone. No plan for urological intervention at this time. Patient has significant other issues that need optimized before he would be a candidate for procedure and anesthesia. If he develops fevers or other acute changes, we can revisit urgent stent placement. Continue supportive care and antibiotic therapy. Davalos catheter discontinued on 09/14 - monitor voiding. Recommend avoid bladder scanning patient as results will be confounded by ascites. If there is concern for urinary retention, can replace catheter. Urology will follow peripherally. Please contact us with any questions, concerns, or changes in patient status. Plan of care and imaging reviewed with Dr. Fields. Admission and Anticipated Discharge Date Admission Date: September 13, 2022 Subjective Patient seen and examined at bedside, chart reviewed Per nursing, he has been refusing some care/medications and has not been speaking He does not answer my questions ROS unobtainable No acute distress Review of Systems Review of Systems: Unobtainable due to cognitive status Physical Exam Constitutional: no acute distress Neck: normal visual inspection Respiratory: normal respiratory effort; no respiratory distress and no labored breathing Cardiovascular: Rate/Rhythm: + tachycardic Gastrointestinal (Abdomen): Inspection/Auscultation: + abdomen distended Musculoskeletal: Head/Neck/Chest: normocephalic Skin: No visible rashes or lesions to exposed skin areas Neurologic: awake Psychiatric: Orientation: alert Results & Data Vital Signs (Past 12 Hours) Vital Signs Temp Pulse Pulse Resp BP Pulse Ox O2 Del Method 09/16/22 10:28 36.4 C L 97 H 20 106/64 09/16/22 07:16 36.3 C L 104 H 15 96/62 L 98 Nasal Cannula 09/16/22 04:13 36 C L 101 H 15 107/63 94 Nasal Cannula 09/16/22 01:40 36.4 C L 104 H 15 97/62 L 98 Nasal Cannula O2 Flow Rate 09/16/22 10:28 09/16/22 07:16 2 09/16/22 04:13 2 09/16/22 01:40 2 PG Care Time/CCT Total # of Minutes Spent Total Time Spent with Patient: Total time spent is greater than 50% in coordination of care (as documented) at patient's floor/unit and/or counseling patient: Coding Level of Care Code 53183 SUB INP/OBS CARE /25MIN Diagnoses Ureterolithiasis N20.1 Acute kidney failure N17.9
[2022-09-16] MEDS: cefTRIAXone SODIUM 2,000 MG in DEXTROSE 5% 50 ML IV SCH (12:27)
--- NOTE | 2022-09-16 12:45 | Palliative Care Consultation ---
Date of Consultation September 16, 2022 Assessment & Plan (1) Dyspnea and respiratory abnormalities: (2) Abdominal pain, generalized: (3) Back pain: (4) Weakness generalized: (5) Noncompliance by refusing intervention or support: pt refuses various aspects of care without a clear rationale. (6) Palliative care by specialist: Met with pt. Provided overview of Palliative Medicine, a subspecialty that provides specialized medical care for people living with a serious illness by offering a focus on quality of life. Palliative Medicine is often conflated with hospice: I advised patient/family that Palliative and hospice can be partners but we are not the same. It is important to understand the difference so that we may be informed, and not afraid. Palliative Medicine works to improve QOL through reduction of symptom burden/more control over their illness, for both the patient and family. Palliative medicine clinicians are board certified, specially-trained and another member of the patient's medical care team. We often provide an extra layer of support because our care is based on the needs of the patient, not the prognosis; as such, it's appropriate at any age/advancing stage of a serious illness and can be provided along with curative treatment. Palliative Medicine clinicians are also trained in advanced communication methodologies, to facilitate complex discussions about advanced illness planning, which are needed to help assure that the treatment choices match the patient's goals, aka delivering Goal Concordant care. Finally, we discussed that hospice is a visiting nurse service that focuses on care delivered at the very end of life for patients with terminal illness, with life expectancy less than 6 month. (7) Advanced care planning/counseling discussion: Met w/pt face to face at bedside x 20min: During last admission in June 2022, he was seen by Dr Irizarry/psych and after her careful assessment he was not felt to be decisionally competent. Therefore I made several attempts to reach his parents who were per snf healthcare commercial lease administrator, his NOK surrogates. Unfortunately, every time I called, the call went to their answering machine and they never responded to any of the message I left. The snf was asked at that time to clarify his NOK contact and/or per DOC policy, pursue guardianship through the DOC legal team and have their healthcare commercial lease administrator appointed as medical decision making surrogate since pt is not capable of this and has no NOK. Pt refused to speak. Guards x 2 in attendance and they verify that patient is intentional in the choice not to speak but when he wants to he will speak, including to curse at staff, nurses, etc. Pt is awake and alert but refuses to interact. I reviewed the overall complexity of his medical issues with attention to the multiorgan failure evolving aka hepatorenal syndrome. I went over the prior choices he has made as far as what he will or won't allow. I was advised by guards he often refuses to speak when he cannot have pain meds. I asked him about his pain and advised him that is a symptom mgt need I could assist him with but he did not reply to this offer either. Plan * Recommend psych eval for decisional capacity. * I do not believe pt has capacity however he also refuses to engage in any discussion. * I provided pt with a high level overview of his multisystem failure issues and that these were not ultimately "curable" or fixable issues. I asked him to tell me what he would want medical teams to focus on if things became worse, as well as where that care should happen for him. He refused to answer. I also asked him if there might be a surrogate decision maker/someone else he would prefer to have make decisions for him such as his parents, but he refused to answer that as well. * Detention should be notified of these issues. Per DOC policy, if NOK contacts are unreachable/not responding AND patient is not decisionally competent, then they will need to pursue guardianship through the DOC process for guardianship via their legal team which will result in their healthcare commercial lease administrator being appointed his guardian and therefore would become the individual to speak with for decisions requiring substituted judgement. The guardianship process can take anywhere from a few days to a few weeks per the snf nurse paralegal. Per [employer] healthcare commercial lease administrator: Inmates who are decisional are able to make their own/autonomous healthcare decisions and the snf will honor the inmate's choices. If inmate lacks decisional capacity their designated NOK becomes surrogate decision maker and if they do not have a designated NOOK then the snf healthcare commercial lease administrator with the assistance of DOC Legal will have to submit for emergency guardianship which can take 1-3 business days. * Please note the following re patient's code election:CPR and other invasive treatments are sometimes desired no matter how small the benefits and how high the burdens. In these cases, patient preferences should generally be honored, but clinical judgment must still be exercised to maximize benefit and minimize harm. "Doing everything" does not mean everything beyond which there is no medical benefit - this falls into a best interest standard: Do that which will maximize good and limit harm. This requires a heavy dependence on Quality of Life issues. Providers are under no obligation to provide/offer treatments that will not meet the humanistic goals of medicine - to make better or cure. * I have updated and discussed case with nursing, primary team and care mgt. Will defer to care mgt for follow up with [facility] re: who may be this patient's NOK for decision making. Please see my note from june 2022 re efforts to reach his parents. Thank you for allowing us to participate in the ongoing care of this patient. Please don't hesitate to call or page with any additional concerns. Dr. Gaby Huang DNP Director, Palliative Care History of Present Illness Reason for Consultation: "goals of care" Attending Physician: Bart Diamond MD History of Present Illness Admitted from [facility] 09/13/22 with chest, abd and back pain. Distended abdomen. Found to have ascites and has known liver cirrhosis for which he has historically refused care. He was last referred to [facility] during his June 2022 admission. The [facility] nursing team shared he has been refusing escalated medical care but when symptoms reached this current intensity he finally agreed. He had a sono guided paracentesis. 4l removed. studies sent. BPs running soft, has midodrine and albumin. typically refuses midodrine but has allowed IV albumin at times/ he has decompensated liver failure, hepatorenal syndrome and progressive organ failure there is compression on diaphragm creating more dyspnea He has CLL in remission VTE prophylaxis is hit or miss, he often refuses he demands to remain full code During last admission in June 2022, he was seen by Dr Irizarry/psych and after her careful assessment he was not felt to be decisionally competent. Therefore I made several attempts to reach his parents who were per snf healthcare commercial lease administrator, his NOK surrogates. Unfortunately, every time I called, the call went to their answering machine and they never responded to any of the message I left. The snf was asked at that time to clarify his NOK contact and/or per DOC policy, pursue guardianship through the DOC legal team and have their healthcare commercial lease administrator appointed as medical decision making surrogate since pt is not capable of this and has no NOK. Allergies Allergy/AdvReac Type Severity Reaction Status Date / Time Gadolinium-Containing Allergy Unknown Patient Verified 09/13/22 12:47 Contrast Medi unsure of reaction but recalls being treated. Iodinated Contrast Media Allergy Unknown Patient Verified 09/13/22 12:47 unsure of reaction but recalls being treated. Home Medications Medication Instructions Recorded Confirmed Type Clindamycin 1% Solution 1 applic topical DAILY 09/13/22 09/13/22 History aluminum-mag hydroxide-simethicone 30 ml PO DAILY PRN heart burn 09/13/22 09/13/22 History 200 mg-200 mg-20 mg/5 mL oral susp benzonatate 200 mg capsule 200 mg PO BID 09/13/22 09/13/22 History benzoyl peroxide 10 % topical 1 applic topical DAILY 09/13/22 09/13/22 History cleanser bisacodyl 5 mg tablet,delayed 10 mg PO BID PRN Constipation 09/13/22 09/13/22 History release bumetanide 1 mg tablet 1 mg PO DAILY 09/13/22 09/13/22 History docusate sodium 250 mg capsule 250 mg PO BID PRN Constipation 09/13/22 09/13/22 History hydroxyzine pamoate 50 mg capsule 50 mg PO BID 09/13/22 09/13/22 History insulin regular human 100 unit/mL 0 unit subcut DIRECTED 09/13/22 09/13/22 History injection solution (Novolin R Regular U-100 Insulin) metoprolol tartrate 25 mg tablet 37.5 mg PO BID 09/13/22 09/13/22 History minocycline 100 mg capsule 100 mg PO DAILY 09/13/22 09/13/22 History spironolactone 25 mg tablet 25 mg PO BID 09/13/22 09/13/22 History Patient History Medical History (Updated 09/16/22 @ 12:51 by Gaby Huang DNP) Abdominal ascites Liver cirrhosis Social History Smoking Status: Never smoker Second Hand Exposure: No; Do You Dip or Chew Tobacco: No; Hx Alcohol Use: No Hx Substance Use: No Preferred Language: Guinean Communication Ability: Unable It Senior Analyst Required: No Beliefs That Will Affect Care: None Current Living Situation: Other Current Living Situation Comment: Detention Feels Safe at Home: Yes Assistive Devices: None Review of Systems Review of Systems: Unobtainable due to mental health condition (pt refused, remains non communicative selectively) Physical Exam Physical Exam: frail, chronically ill appearing non communicative by choice, has refused some care/meds/interventions and spoken with other staff when declining or accepting offered interventions pale color disheveled ascites with distended abdomen extremities with muscle wasting unable to assess strength - pt refuses unable to asses MS - pt refuses though he does appear awake and alert to self/place Results & Data Vital Signs (Past 12 Hours) Vital Signs Temp Pulse Pulse Pulse Resp BP Pulse Ox 09/16/22 11:01 105 H 09/16/22 10:36 09/16/22 10:28 36.4 C L 97 H 20 106/64 09/16/22 07:16 36.3 C L 104 H 15 96/62 L 98 09/16/22 04:13 36 C L 101 H 15 107/63 94 09/16/22 01:40 36.4 C L 104 H 15 97/62 L 98 O2 Del Method O2 Flow Rate 09/16/22 11:01 09/16/22 10:36 Room Air 09/16/22 10:28 09/16/22 07:16 Nasal Cannula 2 09/16/22 04:13 Nasal Cannula 2 09/16/22 01:40 Nasal Cannula 2 Laboratory Results data reviewed Diagnostic Findings data reviewed PG Care Time/CCT Total # of Minutes Spent Total Time Spent: 75 Total Time Spent with Patient: Total time spent is greater than 50% in coordination of care (as documented) at patient's floor/unit and/or counseling patient: TS 75min 20 min face to face in ACP 20 min chart review, discussion with teams 20 min coordination of care, review of DOC ([facility]) policy 15min pt exam Advanced Care Planning 02462 Advanced Care Planning 30 [place] [address] IN/OBS CONSULT LVL 5,80M Patient Type New Medical Decision Making High Complexity Diagnoses Dyspnea and respiratory abnormalities R06.00; R06.89 Abdominal pain, generalized R10.84 Back pain M54.9 Weakness generalized R53.1 Noncompliance by refusing intervention or support Z91.199 Palliative care by specialist Z51.5 Advanced care planning/counseling discussion Z71.89 Additional Codes Advanced Care Planning - 31183 Advanced Care Planning 30 Min: 33241 Advanced Care Planning 30 Min ([id number])
--- NOTE | 2022-09-16 15:11 | Hospitalist Progress Note ---
Date of Service September 16, 2022 Assessment & Plan (1) Abdominal ascites: Plan: US guided paracentesis completed on September 13, for both therapeutic and diagnostic purposes. 4 L of fluid were removed and he continues to remain distended but not tense. Gram stain is negative for any bacteria. No evidence of SBP. (2) Hypotension: Plan: He required intravenous fluid boluses morning, September 15. Midodrine dosage uptitrated today, September 15. Metoprolol is on hold. (3) Acute kidney failure: Plan: Mild. Monitor intake and output. Serial labs . Known left ureter stone. Urology consultation appreciated. No intervention at this time (4) Ureterolithiasis: Plan: Known left ureter stone. Urology consultation appreciated. No intervention at this time. (5) Liver cirrhosis: Plan: Likely cause of ascitic fluid accumulation. Will need GI follow-up and continued outpatient evaluation (6) Shortness of breath: Plan: Acute hypoxic respiratory failure present on admission. Currently requiring oxygen per nasal cannula. He may need supplemental oxygen at the time of discharge. Incentive spirometry ordered. Suspect some degree of basilar pulmonary atelectasis due to diaphragmatic elevation and pulmonary compression from the intra-abdominal ascites. (7) Elevated INR: Plan: Mild. Due to cirrhosis. Vitamin K administration had no effect. Serial labs (8) Odynophagia: Plan: Suspect due to ascites. Resolved after paracentesis (9) Diabetes: Plan: ADA diet. Sliding scale coverage. (10) Chronic lymphocytic leukemia of B-cell type in remission: Plan: Continued outpatient follow-up with oncology Plan patient refused medications and lab draws, I consulted palliative who recommended Psyc consult Admission and Anticipated Discharge Date Admission Date: September 13, 2022 Subjective patient seen and examined, refusing to speak, according to long term guards, patient was speaking about 3 days ago and chooses to speak when he wants Review of Systems Review of Systems: unobtainable Physical Exam Physical Exam: The patient is awake, chronically ill looking HEENT--PERRL, EOMI, mucous membranes and oropharynx mildly dry Neck--supple. No JVD. No bruits. Thyroid normal, trachea midline, no adenopathy. Heart--normal S1 and S2. No murmurs, rubs or gallops. Lungs--clear bilaterally, no respiratory distress, no accessory muscle use. Abdomen-distended Extremities--no cyanosis or clubbing. No edema. Dermatologic--normal skin turgor, normal color, no abnormal lymph nodes, no rash. Neurologic--cranial nerves II through XII grossly intact. Rheumatologic--normal range of motion. Psychiatric--flat affect Results & Data Results & Data Vital Signs (Past 12 Hours) Vital Signs Temp Pulse Pulse Pulse Resp BP Pulse Ox 09/16/22 11:01 105 H 09/16/22 10:36 09/16/22 10:28 97.5 F L 97 H 20 106/64 09/16/22 07:16 97.3 F L 104 H 15 96/62 L 98 09/16/22 04:13 96.8 F L 101 H 15 107/63 94 O2 Del Method O2 Flow Rate 09/16/22 11:01 09/16/22 10:36 Room Air 09/16/22 10:28 09/16/22 07:16 Nasal Cannula 2 09/16/22 04:13 Nasal Cannula 2 PG Care Time/CCT Total # of Minutes Spent Total Time Spent with Patient: Total time spent is greater than 50% in coordination of care (as documented) at patient's floor/unit and/or counseling patient: Coding Level of Care Code 56231 SUB INP/OBS CARE 2/35MIN Diagnoses Abdominal ascites R18.8 Hypotension I95.9 Acute kidney failure N17.9 Ureterolithiasis N20.1 Liver cirrhosis K74.60 Shortness of breath R06.02 Elevated INR R79.1 Odynophagia R13.10 Diabetes E11.9 Chronic lymphocytic leukemia of B-cell type in remission C91.11 Time Spent (min) 35
--- NOTE | 2022-09-16 19:20 | Psychiatric Consultation ---
Date of Consultation September 17, 2022 Impression / Recommendations Impression 62 y/o M with no known psychiatric history admitted with multi-system failure. He was assessed about 9 weeks ago, when he was interactive, as lacking medical decisional capacity at that time. One of the primary criteria for being able to provide informed consent is the ability to communicate ones wishes, ideally in a consistent and unambiguous manner. In this instance, he is currently not able to communicate at all. This means that any other criteria are moot since they cannot be assessed. I can't be certain if he has a valid Durable Power of Vulnerability Assessment Analyst for Healthcare or Living Will, but neither [facility] nor [facility] appears to have either of these on file. At this time, pt clearly LACKS medical decision-making capacity. This can, and should, be reassessed if he becomes more capable of expressing his preferences in some clear and consistent manner (which need not necessarily be via speech, but would need to be more nuanced than merely withdrawing or resisting). (1) Impaired decision making: Plan * Ramiro Lemus DOES NOT have decision-making capacity to refuse medical treatment that would be life-saving or avoid a high risk of fatality, nor urgent tests including imaging or labwork required to assess the presence or degree of risk of such medical conditions * Less-acute decisions (that is, most medical decisions) will need to be made using substituted judgment from someone who is not part of his care team, either from his [id number] (or "healthcare agent") designated in a durable power of information technology internship for healthcare (DPOAH), or, if he lacks a valid DPOAH (or his healthcare agent is not available), then from "next-of-kin" (as defined in Act 169) * If at all possible, make and document a determination of whether pt's current condition is likely to be irreversible or terminal * If that is determined to be the case, his healthcare agent or next-of-kin could, after appropriate discussion, elect to refuse potentially life- saving treatment or urgent tests Psych History Identifying Data RAMIRO LEMUS is a 62-year-old M with no clear psychiatric history, admitted on 09/13/2022 for multi-system failure. Consult is by the hospitalist service for "decisional capacity assessment". Chief Complaint Pt does not speak during my assessment. History of Present Illness Mr. Lemus was assessed by my colleague Dr. Irizarry during a previous admission on 07/10/2022 at which time she did not think he had medical decisional capacity. During the current admission, there appears not to have been any concern about his ability to make rational and informed medical decisions through a number of studies and interventions. That includes a paracentesis done on 09/13/2022, the documentation of which includes a description of a negotiation regarding pain control measures that took place preceding the procedure. I find no documented questions about pt's decision-making capacity during this stay until today, in the context of his refusing venipuncture and medications. The palliative medicine weight loss consultant wasn't able to complete an assessment earlier today because the patient did not speak. There is some evidence, including reports from the custodial guards with pt, that he has a history of contingent speech and selective mutism. However, this evening the guards present tell me that he has appeared to them to have been unresponsive since last night, having barely moved, and has only spoken very briefly (to request water). I was not able to arouse pt by calling his name loudly, shaking his shoulder, tapping his glabella, or a brisk sternal rub. Review of MAR indicates that last oxycodone dose was 09/14/2022 and that hydroxyzine was not administered today. Past Psychiatric History Previous Psych History: no known psychiatric history Allergies Allergy/AdvReac Type Severity Reaction Status Date / Time Gadolinium-Containing Allergy Unknown Patient Verified 09/13/22 12:47 Contrast Medi unsure of reaction but recalls being treated. Iodinated Contrast Media Allergy Unknown Patient Verified 09/13/22 12:47 unsure of reaction but recalls being treated. Home Medications Medication Instructions Recorded Confirmed Type Clindamycin 1% Solution 1 applic topical DAILY 09/13/22 09/13/22 History aluminum-mag hydroxide-simethicone 30 ml PO DAILY PRN heart burn 09/13/22 09/13/22 History 200 mg-200 mg-20 mg/5 mL oral susp benzonatate 200 mg capsule 200 mg PO BID 09/13/22 09/13/22 History benzoyl peroxide 10 % topical 1 applic topical DAILY 09/13/22 09/13/22 History cleanser bisacodyl 5 mg tablet,delayed 10 mg PO BID PRN Constipation 09/13/22 09/13/22 History release bumetanide 1 mg tablet 1 mg PO DAILY 09/13/22 09/13/22 History docusate sodium 250 mg capsule 250 mg PO BID PRN Constipation 09/13/22 09/13/22 History hydroxyzine pamoate 50 mg capsule 50 mg PO BID 09/13/22 09/13/22 History insulin regular human 100 unit/mL 0 unit subcut DIRECTED 09/13/22 09/13/22 History injection solution (Novolin R Regular U-100 Insulin) metoprolol tartrate 25 mg tablet 37.5 mg PO BID 09/13/22 09/13/22 History minocycline 100 mg capsule 100 mg PO DAILY 09/13/22 09/13/22 History spironolactone 25 mg tablet 25 mg PO BID 09/13/22 09/13/22 History Patient History Medical History Abdominal ascites Liver cirrhosis Social History Smoking Status: Never smoker Second Hand Exposure: No; Do You Dip or Chew Tobacco: No; Tobacco Cessation Education Requested by Patient: No Hx Alcohol Use: No Hx Substance Use: No Preferred Language: Bolivian Communication Ability: Unable Security Systems Integrator Required: No Beliefs That Will Affect Care: None Current Living Situation: Other Current Living Situation Comment: Care Home Other Information That Helps Us Care for You: No Feels Safe at Home: Yes Safety Concerns: Feels Safe At This Time Assistive Devices: None Physical Exam Psychiatric: pt lies unmoving and unresponsive in bed with eyes closed and mouth slightly open. He does not respond in any discernible way to my calling his name, shaking his shoulder, glabellar tap, or brisk sternal rub. Vital Signs (Past 24 Hours): Last Vital Signs Temp 36.4 C L 09/16/22 16:08 Pulse 82 09/16/22 16:08 Resp 14 09/16/22 16:08 BP 119/74 09/16/22 18:49 Pulse Ox 98 09/16/22 16:08 O2 Del Method Room Air 09/16/22 16:08 O2 Flow Rate 2 09/16/22 07:16 Exam Statement: I've reviewed physical exams and other notes by the hospitalist team Review of Systems pt is not able to participate in ROS Results & Data (PSY) Medications Administered Hydroxyzine HCl (Hydroxyzine Hcl 25 Mg Tab) 50 mg PO BID KATHLEEN Stop: 10/13/22 20:59 Last Admin: 09/16/22 09:22 Dose: Not Given Documented By: Admin: 09/15/22 20:22 Dose: Not Given Documented By: Admin: 09/15/22 08:27 Dose: 50 mg Documented By: Admin: 09/14/22 21:06 Dose: 50 mg Documented By: Admin: 09/14/22 08:22 Dose: 50 mg Documented By: Admin: 09/13/22 21:21 Dose: 50 mg Documented By: ABL Ceftriaxone Sodium 2,000 mg/ (Dextrose) 70 mls @ 100 mls/hr IV Q24H KATHLEEN; Protocol Stop: 09/24/22 12:59 Last Infusion: 09/16/22 13:11 Dose: 0 mls/hr Documented By: Admin: 09/16/22 12:27 Dose: 100 mls/hr Documented By: Admin: 09/15/22 14:47 Dose: Not Given Documented By: Infusion: 09/14/22 14:09 Dose: 0 mls/hr Documented By: Admin: 09/14/22 13:27 Dose: 100 mls/hr Documented By: SORAYA Insulin Aspart (Insulin Aspart Per Unit Charge) 0 units SC ACHS KATHLEEN Stop: 10/13/22 16:29 Last Admin: 09/16/22 17:26 Dose: Not Given Documented By: BRIGIDO Co-signed By: AM Admin: 09/16/22 13:08 Dose: Not Given Documented By: AM Co-signed By: KRT Admin: 09/16/22 09:22 Dose: Not Given Documented By: KRT Co-signed By: AM Admin: 09/15/22 21:28 Dose: Not Given Documented By: Admin: 09/15/22 17:00 Dose: Not Given Documented By: Admin: 09/15/22 11:30 Dose: Not Given Documented By: Admin: 09/15/22 08:26 Dose: Not Given Documented By: Admin: 09/14/22 20:28 Dose: Not Given Documented By: Admin: 09/14/22 16:35 Dose: Not Given Documented By: SORAYA Co-signed By: OLetha Admin: 09/14/22 11:54 Dose: Not Given Documented By: SORAYA Co-signed By: OO Admin: 09/14/22 08:15 Dose: Not Given Documented By: SORAYA Co-signed By: Admin: 09/13/22 21:45 Dose: 1 units Documented By: ABL Co-signed By: SRS Admin: 09/13/22 17:42 Dose: Not Given Documented By: JENIFER Midodrine (Midodrine Hcl 10 Mg Tab) 10 mg PO TID@0800,1200,1700 KATHLEEN Stop: 10/15/22 11:59 Last Admin: 09/16/22 17:27 Dose: Not Given Documented By: Admin: 09/16/22 12:26 Dose: Not Given Documented By: Admin: 09/16/22 09:22 Dose: Not Given Documented By: Admin: 09/15/22 17:00 Dose: Not Given Documented By: Admin: 09/15/22 11:30 Dose: Not Given Documented By: JENIFER Oxycodone HCl (Oxycodone Hcl Ir 5 Mg Tab (Immediate Release)) 5 mg PO Q6H PRN PRN Reason: Pain Stop: 09/28/22 12:31 Last Admin: 09/14/22 16:28 Dose: 5 mg Documented By: SORAYA Spironolactone (Spironolactone 25 Mg Tab) 25 mg PO BID KATHLEEN Stop: 10/15/22 09:44 Last Admin: 09/16/22 09:23 Dose: Not Given Documented By: Admin: 09/15/22 20:22 Dose: Not Given Documented By: Admin: 09/15/22 11:30 Dose: Not Given Documented By: JENIFER Coding Level of Care Code 72798 IN/OBS CONSULT LVL 3,45M Diagnoses Impaired decision making Z78.9 Time Spent (min) 53
--- NOTE | 2022-09-16 19:48 | Communication Note ---
Date of Service: September 16, 2022 I came to assess patient in response to a consultation request, but he was not in his room. It appears that he may be in imaging at this time.
--- NOTE | 2022-09-16 20:28 | CT Scan Report ---
Exam(s): CT ABDOMEN + PELVIS Without Contrast EXAM: CT Abdomen and Pelvis Without Intravenous Contrast CLINICAL HISTORY: Reason for exam: Increased ascites. TECHNIQUE: Axial computed tomography images of the abdomen and pelvis without intravenous contrast. CTDI is 49 mGy and DLP is 2720.6 mGy-cm. Automated exposure control was utilized for the study. A dose lowering technique was utilized adhering to the principles of ALARA. COMPARISON: No relevant prior studies available. FINDINGS: Lung bases: Airspace consolidation at the lung bases, correlate for mild pneumonia. Moderate bilateral pleural effusions. ABDOMEN: Liver: Unremarkable. Gallbladder and bile ducts: Large gallstone in the gallbladder. Pancreas: Unremarkable. No ductal dilation. Spleen: Unremarkable. No splenomegaly. Adrenals: Unremarkable. No mass. Kidneys and ureters: Bilateral nonobstructing renal calculi. Severe hydronephrosis of the LEFT kidney, without significant hydroureter. No definite obstructing stone however, evaluation is limited. Stomach and bowel: Wall thickening of small bowel, correlate for spontaneous bacterial peritonitis. Diverticulosis, without acute diverticulitis. No small bowel obstruction. No free intraperitoneal air. PELVIS: Appendix: No findings to suggest acute appendicitis. Bladder: Unremarkable. No stones. Reproductive: Unremarkable as visualized. ABDOMEN and PELVIS: Intraperitoneal space: Large volume abdominal and pelvic ascites. No free air. Bones/joints: Degenerative changes of the spine. No acute fracture. No dislocation. Soft tissues: Anasarca. Vasculature: Atherosclerotic changes of the aorta. No abdominal aortic aneurysm. Lymph nodes: Unremarkable. No enlarged lymph nodes. Tubes, lines and devices: Rectal catheter. IMPRESSION: 1. Airspace consolidation at the lung bases, correlate for mild pneumonia. Moderate bilateral pleural effusions. 2. Large volume abdominal and pelvic ascites. 3. Bilateral nonobstructing renal calculi. Severe hydronephrosis of the LEFT kidney, without significant hydroureter. No definite obstructing stone however, evaluation is limited. 4. Wall thickening of small bowel, correlate for spontaneous bacterial peritonitis. 5. Diverticulosis, without acute diverticulitis. No small bowel obstruction. No free intraperitoneal air. Electronically signed by: Sheldon Burch MD 09/16/22 20:27 PM
[2022-09-16 22:48] LABS: Appearance Urine Cloudy (Clear); Bacteria Urine Automated 1+ (Negative); Bilirubin Urine Negative (Negative); Blood Urine 2+ (Negative); Color Urine Dark Yellow; Glucose Urine UA Negative (Negative); Ketones Urine Trace (Negative); Leukocyte Esterase Urine 1+ (Negative); Nitrite Urine Negative (Negative); Protein Urine Trace (Negative); Specific Gravity Urine 1.018 (1.000-1.030); Urobilinogen Urine Negative (Negative)
[2022-09-16 23:00] LABS: RBC Urine Automated 0-4 /hpf (0-4); Sperm Urine Present (None Prsent)
[2022-09-16 23:13] LABS: Basophils # (auto) 0.01 K/uL (0-0.2); Basophils % (auto) 0.1 %; Eosinophils # (auto) 0.01 K/uL (0-0.50); Eosinophils % (auto) 0.1 %; Hematocrit (blood only) 39.2 % (42.0-52.0); Hemoglobin 13.8 g/dl (14.0-18.0); Immature Granulocytes # (auto) 0.02 K/uL (0.01-0.20); Immature Granulocytes % (auto) 0.3 %; Lymphocytes # (auto) 3.41 K/uL (1.2-3.4); Lymphocytes % (auto) 46.6 %; Mean Corpuscular Hemoglobin 28.7 pg (25.0-34.0); Mean Corpuscular Hgb Conc 35.2 g/dL (32.0-36.0); Mean Corpuscular Volume 81.5 fL (80.0-100.0); Mean Platelet Volume 11.7 fL (9.4-12.4); Monocytes # (auto) 0.53 K/uL (0.11-0.59); Monocytes % (auto) 7.2 %; Neutrophils # (auto) 3.34 K/uL (1.40-6.50); Neutrophils % (auto) 45.7 %; Platelet Count 46 K/uL (130-400); RDW Coefficient of Variation 18.3 % (11.5-14.5); RDW Standard Deviation 51.3 fL (36.4-46.3); Red Blood Count 4.81 M/uL (4.70-6.10); White Blood Count 7.32 K/ul (4.8-10.8)
--- NOTE | 2022-09-16 23:46 | CT Scan Report ---
Exam(s): CT HEAD Without Contrast EXAM: CT Head Without Intravenous Contrast CLINICAL HISTORY: Reason for exam: r/o stroke or bleed. TECHNIQUE: Axial computed tomography images of the head/brain without intravenous contrast. CTDI is 36.55 mGy and DLP is 624.11 mGy-cm. Automated exposure control was utilized for the study. A dose lowering technique was utilized adhering to the principles of ALARA. COMPARISON: No relevant prior studies available. FINDINGS: No acute intracranial hemorrhage. No midline shift or mass effect. The territorial sethi-white matter differentiation is maintained throughout. Age-related cerebral volume loss. Periventricular and subcortical white matter hypoattenuation, consistent with chronic microangiopathy. The visualized orbits appear grossly unremarkable. The calvarium is intact. The visualized paranasal sinuses and mastoid air cells are grossly clear. IMPRESSION: No acute intracranial hemorrhage, midline shift, or mass effect. Electronically signed by: Sheldon Burch MD 09/16/22 23:45 PM
[2022-09-17 00:08] LABS: Albumin Globulin Ratio 2.4 (0.9-2); Albumin Level 3.4 gm/dl (3.4-5.0); Bilirubin,Total 2.2 mg/dl (0.2-1.0); Calcium 9.7 mg/dl (8.6-10.3); Creatinine Clr Calc Pharmacy 40.6 ml/min; Est GFR (African American) 40.7 ml/min; Est GFR (Non-African American) 35.1 ml/min; Globulin 1.4 gm/dl (2.5-4.0); Potassium 4.5 mmol/L (3.5-5.1); Total Protein 4.8 gm/dl (6.0-8.3)
[2022-09-17 00:20] LABS: Base Excess VBG 5.6 mEq/L; HCO3 VBG 30 mmol/L; Oxygen Saturation VBG < 60.0 %; PCO2 VBG 41 mmHg (38-50); PO2 VBG 31 mmHg; pH VBG 7.47 (7.36-7.41)
--- NOTE | 2022-09-17 02:30 | Communication Note ---
Date of Service: September 17, 2022 Patient went into an obtunded state prior to shift change. No changes in presentation when seen at bedside this evening, remains responsive to painful stimulus. Repeat labs with no leukocytosis, relatively unremarkable vbg, electrolytes normal, ammonia normal, creatine stable. Head CT unremarkable. Per reports, he had difficulty with dove placement a couple days ago and has been without dove since. Since then he has been producing little to no urine. We attempted to place a dove in the evening with success which produced 600mls dark tea colored urine. UA appears infectious. He is currently on rocephin. Will switch to cefepime for pseudomonal coverage awaiting culture. MRSA pending. Monitor am labs. Would consider repeat therapeutic paracentesis as abd distention worsening. Poor prognosis overall, palliative on board. Hopefully decision of capacity can be made in the morning and we can proceed DOC process for guardianship since patient is still full code. Even when pt was awake in days prior, he was uncooperative and refused to take oral medications. Resident Activity Tracking Resident Involvement: Resident Care Provided Care Provided: Adult [facility]
[2022-09-17] MEDS: CEFEPIME 2,000 MG in SYRINGE 0 ML IV SCH ×2 (03:19→14:16)
[2022-09-17] MEDS: INSULIN ASPART PER UNIT CHARGE SC SCH ×4 (09:47→21:03)
[2022-09-17] MEDS: hydrOXYzine HCl 25 MG TAB PO SCH ×2 (09:49→19:47)
[2022-09-17] MEDS: MIDODRINE HCL 10 MG TAB PO SCH ×3 (09:49→16:51)
[2022-09-17] MEDS: SPIRONOLACTONE 25 MG TAB PO SCH ×2 (09:49→19:47)
[2022-09-17 11:48] LABS: Creatinine Clr Calc Pharmacy 42.1 ml/min; Est GFR (African American) 45.7 ml/min; Est GFR (Non-African American) 39.4 ml/min
--- NOTE | 2022-09-17 12:02 | Communication Note ---
Date of Service: September 17, 2022 Brief Palliative Medicine Note Overnight events noted - pt declining. He is heading to [facility]. He remains a full code. He refuses to engage in discussions about code status and GOC. Psych deemed him decisionally intact and noted his selective mutism I tried calling his parents again, this time the answering machine says "you have reached Carol Francois" and not both their names. [facility] requesting a call back. I have updated nursing and primary teams. Thank you for allowing us to participate in the ongoing care of this patient. Please don't hesitate to call or page with any additional concerns. Dr. Gaby Huang DNP Director, Palliative Care
--- NOTE | 2022-09-17 14:15 | Hospitalist Progress Note ---
Date of Service September 17, 2022 Assessment & Plan (1) Abdominal ascites: Plan: US guided paracentesis completed on September 13, for both therapeutic and diagnostic purposes. 4 L of fluid were removed and he continues to remain distended but not tense. Gram stain is negative for any bacteria. No evidence of SBP. However repeat CT abdomen and pelvis showed evidence of large volume ascites. Patient has refused to give consent for paracentesis. Has been evaluated by psychiatry and deemed couple of making his own decisions. Palliative has been consulted, patient is appropriate for hospice, he chooses selective mutism (2) Hypotension: Plan: He required intravenous fluid boluses morning, September 15. Midodrine dosage uptitrated today, September 15. Metoprolol is on hold. (3) Acute kidney failure: Plan: Mild. Monitor intake and output. Serial labs . Known left ureter stone. Urology consultation appreciated. No intervention at this time Patient has been known to refuse blood draws and lab draws (4) Ureterolithiasis: Plan: Known left ureter stone. Urology consultation appreciated. No intervention at this time. (5) Liver cirrhosis: Plan: Likely cause of ascitic fluid accumulation. Will need GI follow-up and continued outpatient evaluation (6) Shortness of breath: Plan: Acute hypoxic respiratory failure present on admission. Currently requiring oxygen per nasal cannula. He may need supplemental oxygen at the time of discharge. Incentive spirometry ordered. Suspect some degree of basilar pulmonary atelectasis due to diaphragmatic elevation and pulmonary compression from the intra-abdominal ascites. (7) Elevated INR: Plan: Mild. Due to cirrhosis. Vitamin K administration had no effect. Serial labs (8) Odynophagia: Plan: Suspect due to ascites. Resolved after paracentesis (9) Diabetes: Plan: ADA diet. Sliding scale coverage. (10) Chronic lymphocytic leukemia of B-cell type in remission: Plan: Continued outpatient follow-up with oncology Plan Patient refuses to talk, refuses to give consent for procedures. I ordered paracentesis, but patient refused to give consent further. Has been evaluated by psychiatry and deemed couple of making his own decisions. He is hospice appropriate Prognosis is very poor. Admission and Anticipated Discharge Date Admission Date: September 13, 2022 Subjective patient seen and examined, refusing to speak, according to alf guards, patient was speaking about 4 days ago and chooses to speak when he wants, has been evaluated by psych and deemed capable of making his own decisions Review of Systems Review of Systems: unobtainable Physical Exam Physical Exam: The patient is awake, chronically ill looking HEENT--PERRL, EOMI, mucous membranes and oropharynx mildly dry Neck--supple. No JVD. No bruits. Thyroid normal, trachea midline, no adenopathy. Heart--normal S1 and S2. No murmurs, rubs or gallops. Lungs--clear bilaterally, no respiratory distress, no accessory muscle use. Abdomen-distended Extremities--no cyanosis or clubbing. No edema. Dermatologic--normal skin turgor, normal color, no abnormal lymph nodes, no rash. Neurologic--cranial nerves II through XII grossly intact. Rheumatologic--normal range of motion. Psychiatric--flat affect Results & Data Results & Data Vital Signs (Past 12 Hours) Vital Signs Temp Pulse Pulse Resp BP Pulse Ox O2 Del Method 09/17/22 14:08 97.2 F L 09/17/22 13:02 Room Air 09/17/22 12:46 107 H 09/17/22 11:55 95.7 F L 09/17/22 11:23 104 H 18 128/80 98 Room Air 09/17/22 07:08 97.5 F L 106 H 17 119/77 97 Room Air 09/17/22 03:22 95.9 F L 100 H 15 118/79 94 Room Air PG Care Time/CCT Total # of Minutes Spent Total Time Spent with Patient: Total time spent is greater than 50% in coordination of care (as documented) at patient's floor/unit and/or counseling patient: Coding Level of Care Code 38917 SUB INP/OBS CARE 2/35MIN Diagnoses Abdominal ascites R18.8 Hypotension I95.9 Acute kidney failure N17.9 Ureterolithiasis N20.1 Liver cirrhosis K74.60 Shortness of breath R06.02 Elevated INR R79.1 Odynophagia R13.10 Diabetes E11.9 Chronic lymphocytic leukemia of B-cell type in remission C91.11 Time Spent (min) 35
[2022-09-18] MEDS: CEFEPIME 2,000 MG in SYRINGE 0 ML IV SCH (02:59)
[2022-09-18 07:40] LABS: Est GFR (Non-African American) 42.3 ml/min
[2022-09-18] MEDS: hydrOXYzine HCl 25 MG TAB PO SCH (09:14)
[2022-09-18] MEDS: MIDODRINE HCL 10 MG TAB PO SCH ×2 (09:14→12:08)
[2022-09-18] MEDS: SPIRONOLACTONE 25 MG TAB PO SCH (09:14)
[2022-09-18] MEDS: oxyCODONE HCL IR 5 MG TAB (IMMEDIATE RELEASE) PO PRN (09:14)
[2022-09-18] MEDS: INSULIN ASPART PER UNIT CHARGE SC SCH ×2 (09:45→12:19)
[2022-09-18] MEDS: ALBUMIN 25% 25 GM/100 ML VIAL IV SCH ×2 (10:24→12:08)
[2022-09-18] MEDS ORDERED: GLYCOPYRROLATE 0.2 MG/ML VIAL IV PRN (12:41)
[2022-09-18] MEDS ORDERED: LORazepam 2 MG/1 ML VIAL IV PRN (12:41)
[2022-09-18] MEDS ORDERED: HYDROmorphone BOLUS from BAG IV PRN ×2 (12:51→13:30)
--- NOTE | 2022-09-18 14:29 | Hospitalist Progress Note ---
Date of Service September 18, 2022 Assessment & Plan (1) Abdominal ascites: Plan: US guided paracentesis completed on September 13, for both therapeutic and diagnostic purposes. 4 L of fluid were removed and he continues to remain distended but not tense. Gram stain is negative for any bacteria. No evidence of SBP. However repeat CT abdomen and pelvis showed evidence of large volume ascites. Patient initially refused to give consent for repeat paracentesis however he ag melisa today. But after discussion with palliative, he has opted for comfort care He has been started on CAR WRECKER Dilaudid and the rest of the medications have been discontinued. (2) Hypotension: Plan: Patient Comfort measures Augmentin supplements continue (3) Acute kidney failure: Plan: Mild. Monitor intake and output. Serial labs . Known left ureter stone. Urology consultation appreciated. No intervention at this time Patient has been known to refuse blood draws and lab draws (4) Ureterolithiasis: Plan: Known left ureter stone. Urology consultation appreciated. No intervention at this time. (5) Liver cirrhosis: Plan: Patient is now strictly comfort care (6) Shortness of breath: Plan: Acute hypoxic respiratory failure present on admission. Currently requiring oxygen per nasal cannula. He may need supplemental oxygen at the time of discharge. Incentive spirometry ordered. Suspect some degree of basilar pulmonary atelectasis due to diaphragmatic elevation and pulmonary compression from the intra-abdominal ascites. (7) Elevated INR: Plan: Mild. Due to cirrhosis. Vitamin K administration had no effect. Serial labs (8) Odynophagia: Plan: Suspect due to ascites. Resolved after paracentesis (9) Diabetes: Plan: ADA diet. Sliding scale coverage. (10) Chronic lymphocytic leukemia of B-cell type in remission: Plan: Continued outpatient follow-up with oncology Plan After discussing with palliative, patient is now comfort measures only Admission and Anticipated Discharge Date Admission Date: September 13, 2022 Subjective Patient seen and examined today, more interactive initially agreed to paracentesis however when he discussed with palliative, he opted for comfort care Review of Systems Review of Systems: unobtainable Physical Exam Physical Exam: The patient is awake, chronically ill looking HEENT--PERRL, EOMI, mucous membranes and oropharynx mildly dry Neck--supple. No JVD. No bruits. Thyroid normal, trachea midline, no adenopathy. Heart--normal S1 and S2. No murmurs, rubs or gallops. Lungs--clear bilaterally, no respiratory distress, no accessory muscle use. Abdomen-distended Extremities--no cyanosis or clubbing. No edema. Dermatologic--normal skin turgor, normal color, no abnormal lymph nodes, no rash. Neurologic--cranial nerves II through XII grossly intact. Rheumatologic--normal range of motion. Psychiatric--flat affect Results & Data Results & Data Vital Signs (Past 12 Hours) Vital Signs Temp Pulse Pulse Resp BP Pulse Ox O2 Del Method 09/18/22 11:21 98.1 F 104 H 18 124/81 97 Room Air 09/18/22 08:00 111 H 09/18/22 08:00 Room Air 09/18/22 07:27 98.2 F 110 H 18 120/79 95 Room Air 09/18/22 02:33 96.3 F L 103 H 20 111/71 95 Room Air PG Care Time/CCT Total # of Minutes Spent Total Time Spent with Patient: Total time spent is greater than 50% in coordination of care (as documented) at patient's floor/unit and/or counseling patient: Coding Level of Care Code 50218 SUB INP/OBS CARE 2/35MIN Diagnoses Abdominal ascites R18.8 Hypotension I95.9 Acute kidney failure N17.9 Ureterolithiasis N20.1 Liver cirrhosis K74.60 Shortness of breath R06.02 Elevated INR R79.1 Odynophagia R13.10 Diabetes E11.9 Chronic lymphocytic leukemia of B-cell type in remission C91.11 Time Spent (min) 35
[2022-09-18] MEDS: HYDROmorphone/NSS 100 MG/100 ML BAG IV SCH (14:53)
--- NOTE | 2022-09-18 20:31 | Palliative Care Progress Note ---
Date of Service September 18, 2022 Assessment & Plan (1) Abdominal pain: Plan: Patient admits to significant pain and discomfort predominantly abdomen but also in a generalized way. He has a prior history of substance abuse and addiction. Though he has been abuse free for several years during his incarceration, it is most likely that his opioid receptors have a higher than average threshold for opioid utilization. Therefore we will begin a Dilaudid OIL EXPELLER OPERATOR to optimize pain and symptom management at the end of life. We will begin a Dilaudid infusion at 0.5 mg/h with Dilaudid OIL EXPELLER OPERATOR bolus dose 0.5 mg every 10 minutes as needed as needed for breakthrough pain or dyspnea. (2) Dyspnea and respiratory abnormalities: (3) Abdominal pain, generalized: (4) Back pain: (5) Weakness generalized: (6) Concern about end of life: (7) Advanced care planning/counseling discussion: Plan: Met with patient at the bedside, correction officers x2 present. Patient is more awake alert and interactive today than he has been in previous days. He is clearly also suffering more of progressive pain and distress. He is willing to interact and answers me appropriately when I inquired about his pain and symptom needs. We then discussed that in spite of maximal medical therapies he is progressing to multiorgan failure. At this junction there is nothing curable, reversible or fixable that we can offer. I shared with him my concern that he is beginning to transition from a process of living to a process of dying. I also discussed CODE STATUS, and reviewed that CPR at this junction would not provide a meaningful benefit. In the context of a multiorgan failure, CPR will prolong the dying process but will not make that more comfortable, peaceful or improve or reverse the underlying issues. We also discussed that as his pain and symptoms are intensifying, these of the changes we can see patients transition from a process of living to a process of dying. I discussed with patient the options at this point moving forward of either transitioning to a more comfort focused plan of care with a more aggressive approach to his pain and symptom management with a Dilaudid infusion and OIL EXPELLER OPERATOR bolus options versus continuing along the current track of trying to treat things or improve them despite the fact that he is worsening with escalating treatment. Patient expressed a wish to pursue a focus on comfort. We discussed CODE STATUS specifically he indicated he would not wish to be resuscitated at this point. I confirmed an election of DNR/DNI, to which he agreed. We spoke about comfort care and the stopping of medications that are nonessential. He stated he wishes to proceed with a more comfort focused plan of care, does not wish to have any more labs or aggressive interventions. He reaffirmed that this is what he would like to proceed with. We talked about the utilization of a Dilaudid OIL EXPELLER OPERATOR for pain and symptom management and he was in agreement with this as well. His willow machine operator strength is still relatively intact and he should be able to utilize the OIL EXPELLER OPERATOR button for demand dosing as needed. I asked him if there is anyone I could call for more to update. He replied that there was no one he felt needed to be involved or updated. He was thankful for the conversation we had. (8) Palliative care by specialist: Plan * Patient is progressing towards multiorgan failure. He is transitioning from a process of living to a process of dying. * After discussion with patient at the bedside, he agreed to change CODE STATUS to DNR/DNI with a transition to comfort care. He would like to optimize and improve his current pain management regimen. I have initiated Dilaudid infusion with OIL EXPELLER OPERATOR bolus option. Comfort care orders have been written. All nonessential and noncomfort oriented medications have been discontinued. Additional labs and interventions have been discontinued. * Patient declined for notification of any other family or friends. The present was notified by the correction officers at the bedside. * Patient has a very short anticipated survival. He is progressing into relatively rapid multiorgan failure in spite of escalating medical therapies. I anticipate he will within the next few days. * I have updated nursing and the primary team. Time spent at the bedside directly with the patient was 20 minutes. Additional time spent in [id number] advance care planning discussions was also 20 minutes. Time spent in chart review was 10 minutes. Time spent in discussion and care coordination with additional team members was another 15 minutes. Total time spent on this case today was 65 minutes. Thank you for allowing us to participate in the ongoing care of this patient. Please don't hesitate to call or page with any additional concerns. Dr. Gaby Huang DNP Director, Palliative Care Admission and Anticipated Discharge Date Admission Date: September 13, 2022 Subjective Patient seen earlier today for continued worsening with progression of multiorgan failure. He is a little more awake today and in acute distress. He is grimacing and expressing significant pain. He was willing to speak with me for short time this morning and we reviewed his overall declining condition and the implications thereof. He is not eating or drinking very much. He remains selectively mute when he is not interested in engaging or interacting with the people in the room. Review of Systems Review of Systems: All systems reviewed & are unremarkable except as noted in Subjective Physical Exam Physical Exam: Limited exam. Patient is awake and alert, answering with short sentences. Appears to be in distress with grimacing and facial expressions of discomfort. Extremities are pale and cool to the touch. There is some early mottling to his lower extremities as well as his hands to forearms. His nailbeds have a mild dusky cyanosis. Respiratory effort is mildly increased. There is some use of accessory muscles noted. Lungs are overall diminished with a few crackles. Heart tones are normal without any obvious murmur. Abdomen is grossly distended, there is a fluid shift, he is diffusely tender, there is pain more pronounced over the bilateral to central regions. Significantly more pain on the right with deep palpation. Davalos catheter remains in place. Results & Data Vital Signs (Past 12 Hours) Vital Signs Temp Pulse Resp BP Pulse Ox O2 Del Method 09/18/22 14:57 36.4 C L 90 18 116/74 94 Room Air 09/18/22 11:21 36.7 C 104 H 18 124/81 97 Room Air Laboratory Results Data reviewed Diagnostic Findings Data reviewed PG Care Time/CCT Total # of Minutes Spent Total Time Spent: 65 Total Time Spent with Patient: Total time spent is greater than 50% in coordination of care (as documented) at patient's floor/unit and/or counseling patient: Advanced Care Planning 00256 Advanced Care Planning 30 Min [place] [address] SUB INP/OBS CARE 3/50MIN Patient Type Established History Comprehensive Exam Comprehensive Medical Decision Making High Complexity Diagnoses Abdominal pain R10.9 Dyspnea and respiratory abnormalities R06.00; R06.89 Abdominal pain, generalized R10.84 Back pain M54.9 Weakness generalized R53.1 Concern about end of life Z71.1 Advanced care planning/counseling discussion Z71.89 Palliative care by specialist Z51.5 Additional Codes Advanced Care Planning - 83257 Advanced Care Planning 30 Min: 86983 Advanced Care Planning 30 Min ([id number])
--- NOTE | 2022-09-19 11:28 | Hospitalist Progress Note ---
Date of Service September 19, 2022 Assessment & Plan (1) Abdominal ascites: Plan: Patient was admitted to the hospital from the presents on account of failure to thrive, abdominal distention US guided paracentesis completed on September 13, for both therapeutic and diagnostic purposes. 4 L of fluid were removed and he continues to remain distended but not tense. Gram stain is negative for any bacteria. No evidence of SBP. However repeat CT abdomen and pelvis showed evidence of large volume ascites. Patient initially refused to give consent for repeat paracentesis, although he later agreed but then after discussion with palliative he opted for comfort care He has been started on Dilaudid infusion and the rest of the medications have been discontinued. (2) Hypotension: Plan: Patient Comfort measures Augmentin supplements continue (3) Acute kidney failure: Plan: Mild. Monitor intake and output. Serial labs . Known left ureter stone. Urology consultation appreciated. No intervention at this time Patient has been known to refuse blood draws and lab draws (4) Ureterolithiasis: Plan: Known left ureter stone. Urology consultation appreciated. No intervention at this time. (5) Liver cirrhosis: Plan: Patient is now strictly comfort care (6) Shortness of breath: Plan: Acute hypoxic respiratory failure present on admission. Currently requiring oxygen per nasal cannula. He may need supplemental oxygen at the time of discharge. Incentive spirometry ordered. Suspect some degree of basilar pulmonary atelectasis due to diaphragmatic elevation and pulmonary compression from the intra-abdominal ascites. (7) Elevated INR: Plan: Mild. Due to cirrhosis. Vitamin K administration had no effect. Serial labs (8) Odynophagia: Plan: Suspect due to ascites. Resolved after paracentesis (9) Diabetes: Plan: ADA diet. Sliding scale coverage. (10) Chronic lymphocytic leukemia of B-cell type in remission: Plan: Continued outpatient follow-up with oncology Plan After discussing with palliative, patient is now comfort measures only. Prognosis is poor Admission and Anticipated Discharge Date Admission Date: September 13, 2022 Subjective Patient seen and examined today, with guards by the bedside, he is almost obtunded although slightly awake but unable to engage in any form of conversation Review of Systems Review of Systems: unobtainable Physical Exam Physical Exam: The patient is chronically ill looking, obtunded almost HEENT--PERRL, EOMI, mucous membranes and oropharynx mildly dry Neck--supple. No JVD. No bruits. Thyroid normal, trachea midline, no adenopathy. Heart--normal S1 and S2. No murmurs, rubs or gallops. Lungs--reduced air entry on auscultation Abdomen-distended Extremities--bilateral leg edema Dermatologic--normal skin turgor, normal color, no abnormal lymph nodes, no rash. Neurologic--obtunded . Rheumatologic--normal range of motion. Psychiatric--flat affect Results & Data Results & Data Vital Signs (Past 12 Hours) Vital Signs O2 Del Method 09/19/22 09:20 Room Air PG Care Time/CCT Total # of Minutes Spent Total Time Spent with Patient: Total time spent is greater than 50% in coordination of care (as documented) at patient's floor/unit and/or counseling patient: Coding Level of Care Code 16986 SUB INP/OBS CARE 2/35MIN Diagnoses Abdominal ascites R18.8 Hypotension I95.9 Acute kidney failure N17.9 Ureterolithiasis N20.1 Liver cirrhosis K74.60 Shortness of breath R06.02 Elevated INR R79.1 Odynophagia R13.10 Diabetes E11.9 Chronic lymphocytic leukemia of B-cell type in remission C91.11 Time Spent (min) 35
--- NOTE | 2022-09-20 11:35 | Hospitalist Progress Note ---
Date of Service September 20, 2022 Assessment & Plan (1) Abdominal ascites: Plan: Patient was admitted to the hospital from the [facility] on account of failure to thrive, abdominal distention US guided paracentesis completed on September 13, for both therapeutic and diagnostic purposes. 4 L of fluid were removed and he continues to remain distended but not tense. Gram stain is negative for any bacteria. No evidence of SBP. However repeat CT abdomen and pelvis showed evidence of large volume ascites. Patient initially refused to give consent for repeat paracentesis, although he later agreed but then after discussion with palliative he opted for comfort care He has been started on Dilaudid infusion and the rest of the medications have been discontinued. Poor prognosis (2) Hypotension: Plan: Patient Comfort measures Augmentin supplements continue (3) Acute kidney failure: Plan: comfort measures only (4) Ureterolithiasis: Plan: Known left ureter stone. Urology consultation appreciated. No intervention at this time. (5) Liver cirrhosis: Plan: Patient is now strictly comfort care (6) Shortness of breath: Plan: continue supplemental oxygen for comfort (7) Elevated INR: (8) Odynophagia: Plan: Suspect due to ascites. Resolved after paracentesis (9) Diabetes: Plan: comfort measures (10) Chronic lymphocytic leukemia of B-cell type in remission: Plan: comfort care now Plan After discussing with palliative, patient is now comfort measures only. Prognosis is poor Admission and Anticipated Discharge Date Admission Date: September 13, 2022 Subjective Patient seen and examined today, with guards by the bedside, he is obtunded Review of Systems Review of Systems: unobtainable Physical Exam Physical Exam: Limited exam Patient Obtunded PG Care Time/CCT Total # of Minutes Spent Total Time Spent with Patient: Total time spent is greater than 50% in coordination of care (as documented) at patient's floor/unit and/or counseling patient: Coding Level of Care Code 57701 SUB INP/OBS CARE 1/25MIN Diagnoses Abdominal ascites R18.8 Hypotension I95.9 Acute kidney failure N17.9 Ureterolithiasis N20.1 Liver cirrhosis K74.60 Shortness of breath R06.02 Elevated INR R79.1 Odynophagia R13.10 Diabetes E11.9 Chronic lymphocytic leukemia of B-cell type in remission C91.11 Time Spent (min) 25
--- NOTE | 2022-09-20 13:19 | Palliative Care Progress Note ---
Date of Service September 20, 2022 Assessment & Plan (1) Abdominal pain: Plan: increased crying out, grimacing etc will inc dilaudid infusion frm 0.5mg per hour to 0.8mg per hour and have increased bolus dose from 0.5mg q10min prn to 0.8mg q10min prn reviewed with nursing and primary team (2) Dyspnea and respiratory abnormalities: Plan: * see above, Dilaudid infusion increased to improve comfort * discontinue oxygen: For patients at the end of life, oxygen delivered by a nasal cannula provides no additional symptomatic benefit for relief of refractory dyspnea in patients with life-limiting illness compared with room air: there's a point at which that the oxygen level gets so low that it's no longer compatible with life. By providing supplemental oxygen, the dying process will be unnecessarily prolonged. Please use less burdensome but more effective strategies such as comfort care meds, oscillating fan, massage, repositioning, etc. (Marlo AP, Briana CF, Sree PA, et al. Effect of palliative oxygen versus room air in relief of breathlessness in patients with refractory dyspnea: a double-blind, randomized controlled trial. Lancet. 2010;376(3949):784-793. doi:10.1016/H8909-1430997-5735(60)41115-4) (3) Abdominal pain, generalized: Plan: see #1 above (4) Back pain: (5) Weakness generalized: (6) Concern about end of life: (7) Palliative care by specialist: Plan * Patient w/progressing MSOF. * He is transitioning to active dying process. * Patient has a short anticipated survival. * I have updated nursing and the primary team. Time spent at the bedside directly with the patient was 20 minutes. Additional time spent in [id number] advance care planning discussions w/guards x 10min in room. Time spent in chart review was 5 minutes. Time spent in discussion and care coordination with additional team members was another 15 minutes. Total time spent on this case today was 50 minutes. Thank you for allowing us to participate in the ongoing care of this patient. Please don't hesitate to call or page with any additional concerns. Dr. Gaby Huang DNP Director, Palliative Care Admission and Anticipated Discharge Date Admission Date: September 13, 2022 Subjective remains on TAKER OFF BRAKER MACHINE this morning he is crying out, grimacing and moaning, at times clenchin jaw with spasmodic pain noted. not responding to verbal but did open eyes with pain breakthrough respirations gurgly per guards x2 at bedside Review of Systems Review of Systems: Unobtainable due to reduced consciousness Physical Exam Physical Exam: not responding to verbal or tactile stimuli eyes open with pain/spasms but not focused unable to follow commands grimacing, moaning and crying out brow is furrowed, some diaphoresis extremities cool/pale/dusky nailbeds, early mottling BLE resp effort slightly increased, gurgling secretions, coarse rhonchi tachy s1s2, no gross JVD abd distended, TTP, diffuse discomfort with exam/more grimacing and crying out Results & Data Laboratory Results TAKER OFF BRAKER MACHINE Diagnostic Findings TAKER OFF BRAKER MACHINE PG Care Time/CCT Total # of Minutes Spent Total Time Spent: 50 Total Time Spent with Patient: Total time spent is greater than 50% in coordination of care (as documented) at patient's floor/unit and/or counseling patient: Time spent at the bedside directly with the patient was 20 minutes. Additional time spent in [id number] advance care planning discussions w/guards x 10min in room. Time spent in chart review was 5 minutes. Time spent in discussion and care coordination with additional team members was another 15 minutes. Total time spent on this case today was 50 minutes. Coding [place] [address] SUB INP/OBS CARE 3/50MIN Patient Type Established History Comprehensive Exam Comprehensive Medical Decision Making High Complexity Diagnoses Abdominal pain R10.9 Dyspnea and respiratory abnormalities R06.00; R06.89 Abdominal pain, generalized R10.84 Back pain M54.9 Weakness generalized R53.1 Concern about end of life Z71.1 Palliative care by specialist Z51.5
[2022-09-20] MEDS: GLYCOPYRROLATE 0.2 MG/ML VIAL IV PRN ×2 (13:26→17:20)
[2022-09-21] MEDS: GLYCOPYRROLATE 0.2 MG/ML VIAL IV PRN ×2 (00:29→04:51)
--- NOTE | 2022-09-21 16:10 | Hospitalist Progress Note ---
Date of Service September 21, 2022 Assessment & Plan (1) Abdominal ascites: Plan: Patient was admitted to the hospital from the presents on account of failure to thrive, abdominal distention US guided paracentesis completed on September 13, for both therapeutic and diagnostic purposes. 4 L of fluid were removed and he continues to remain distended but not tense. Gram stain is negative for any bacteria. No evidence of SBP. However repeat CT abdomen and pelvis showed evidence of large volume ascites. Patient initially refused to give consent for repeat paracentesis, although he later agreed but then after discussion with palliative he opted for comfort care He has been started on Dilaudid infusion and the rest of the medications have been discontinued. Poor prognosis (2) Hypotension: Plan: Patient Comfort measures (3) Acute kidney failure: Plan: comfort measures only (4) Ureterolithiasis: Plan: Known left ureter stone. Urology consultation appreciated. No intervention at this time. (5) Liver cirrhosis: Plan: Patient is now strictly comfort care (6) Elevated INR: (7) Diabetes: Plan: comfort measures (8) Chronic lymphocytic leukemia of B-cell type in remission: Plan: comfort care now Plan After discussing with palliative, patient is now comfort measures only. Prognosis is poor Admission and Anticipated Discharge Date Admission Date: September 13, 2022 Subjective In the past the patient has refused to communicate to staff at this morning when I visited him he is staring forward is unclear whether he is sedate with his eyes open from Dilaudid or he is refusing to interact with me. He does not appear to be uncomfortable he is not yelling out he is not grimacing his abdomen is still fairly distended dull and firm Physical Exam Physical Exam: Patient appears comfortable on comfort measures only abdomen still exam is with massive ascites has commented on his previous CT scans Results & Data Results & Data Vital Signs (Past 12 Hours) Vital Signs O2 Del Method 09/21/22 09:15 Room Air PG Care Time/CCT Total # of Minutes Spent Total Time Spent with Patient: Total time spent is greater than 50% in coordination of care (as documented) at patient's floor/unit and/or counseling patient: Coding Level of Care Code 74043 SUB INP/OBS CARE 2/35MIN Diagnoses Abdominal ascites R18.8 Hypotension I95.9 Acute kidney failure N17.9 Ureterolithiasis N20.1 Liver cirrhosis K74.60 Elevated INR R79.1 Diabetes E11.9 Chronic lymphocytic leukemia of B-cell type in remission C91.11
--- NOTE | 2022-09-22 08:58 | Hospitalist Progress Note ---
Date of Service September 22, 2022 Assessment & Plan (1) Comfort measures only status: (2) Abdominal ascites: Plan: Patient was admitted to the hospital from the presents on account of failure to thrive, abdominal distention US guided paracentesis completed on September 13, for both therapeutic and diagnostic purposes. 4 L of fluid were removed and he continues to remain distended but not tense. Gram stain is negative for any bacteria. No evidence of SBP. However repeat CT abdomen and pelvis showed evidence of large volume ascites. Patient initially refused to give consent for repeat paracentesis, although he later agreed but then after discussion with palliative he opted for comfort care He has been started on Dilaudid infusion and the rest of the medications have been discontinued. Poor prognosis (3) Hypotension: Plan: Patient Comfort measures (4) Acute kidney failure: Plan: comfort measures only (5) Ureterolithiasis: Plan: Known left ureter stone. Urology consultation appreciated. No intervention at this time. (6) Liver cirrhosis: Plan: Patient is now strictly comfort care (7) Elevated INR: (8) Diabetes: Plan: comfort measures (9) Chronic lymphocytic leukemia of B-cell type in remission: Plan: comfort care now Plan After discussing with palliative, patient is now comfort measures only. Prognosis is poor Admission and Anticipated Discharge Date Admission Date: September 13, 2022 Subjective patient is sedate with his eyes open Dilaudid gtt increased. He does not appear to be uncomfortable his abdomen is still fairly distended dull and firm Physical Exam Physical Exam: Patient appears comfortable on comfort measures only abdomen still exam is with massive ascites has commented on his previous CT scans PG Care Time/CCT Total # of Minutes Spent Total Time Spent with Patient: Total time spent is greater than 50% in coordination of care (as documented) at patient's floor/unit and/or counseling patient: Coding Level of Care Code 94283 SUB INP/OBS CARE 2/35MIN Diagnoses Comfort measures only status Z51.5 Abdominal ascites R18.8 Hypotension I95.9 Acute kidney failure N17.9 Ureterolithiasis N20.1 Liver cirrhosis K74.60 Elevated INR R79.1 Diabetes E11.9 Chronic lymphocytic leukemia of B-cell type in remission C91.11
[2022-09-22] MEDS: HYDROmorphone/NSS 100 MG/100 ML BAG IV SCH (09:08)
[2022-09-22] MEDS: HYDROmorphone BOLUS from BAG IV PRN (11:43)
[2022-09-23] MEDS: HYDROmorphone BOLUS from BAG IV PRN ×2 (10:49→14:59)
--- NOTE | 2022-09-23 13:05 | Palliative Care Progress Note ---
Date of Service September 23, 2022 Assessment & Plan (1) Abdominal pain: Plan: Dilaudid infusion increased to 1.2mg per hour and prn bolus increased to 1mg q10min prn Patient is moaning/drying out and grimacing at times: encouraged staff to utilize bolus dosing and titrate infusion to comfort (2) Dyspnea and respiratory abnormalities: (3) Abdominal pain, generalized: (4) Back pain: (5) Weakness generalized: (6) Concern about end of life: (7) Palliative care by specialist: Plan * Patient w/terminal [facility]. * He is transitioning to active dying process, BLE mottled to above knees. * I have asked guards to loosen shackle on LLE due to swelling - it is cutting into his skin. * I have modified comfort care meds * I have updated guards x2, nursing and the primary team. * TS: 50min Thank you for allowing us to participate in the ongoing care of this patient. Please don't hesitate to call or page with any additional concerns. Dr. Gaby Huang DNP Director, Palliative Care Admission and Anticipated Discharge Date Admission Date: September 13, 2022 Subjective remains on BUSH HOG OPERATOR had a few prn doses and titration still uncomfortable, moaning at times guards x2 present not responding pale and cool Review of Systems Review of Systems: Unobtainable due to reduced consciousness Physical Exam Physical Exam: not responding to verba, grimaces with some tactile stimuli eyes are open/unfocused, dry appearing unable to follow commands grimacing, moaning at times extremities cool/pale/dusky nailbeds +mottling BLE to just above the knees wiht +2 edema, the shackle on LLE is starting to cut into skin a little bit resp effort slightly increased, gurgling secretions, coarse rhonchi tachy s1s2, no gross JVD abd distended, TTP, diffuse discomfort with exam - +grimacing Results & Data Vital Signs (Past 12 Hours) Vital Signs O2 Del Method 09/23/22 07:32 Room Air Laboratory Results BUSH HOG OPERATOR Diagnostic Findings BUSH HOG OPERATOR PG Care Time/CCT Total # of Minutes Spent Total Time Spent: 50 Total Time Spent with Patient: Total time spent is greater than 50% in coordination of care (as documented) at patient's floor/unit and/or counseling patient: Coding [place] [address] SUB INP/OBS CARE 350MIN Patient Type Established History Comprehensive Exam Comprehensive Medical Decision Making High Complexity Diagnoses Abdominal pain R10.9 Dyspnea and respiratory abnormalities R06.00; R06.89 Abdominal pain, generalized R10.84 Back pain M54.9 Weakness generalized R53.1 Concern about end of life Z71.1 Palliative care by specialist Z51.5
--- NOTE | 2022-09-23 15:37 | Hospitalist Progress Note ---
Date of Service September 23, 2022 Assessment & Plan (1) Comfort measures only status: Plan: Patient shiela on Dilaudid infusion for comfort measures only in the hospital is expected (2) Abdominal ascites: Plan: Patient was admitted to the hospital from the presents on account of failure to thrive, abdominal distention US guided paracentesis completed on September 13, for both therapeutic and diagnostic purposes. 4 L of fluid were removed and he continues to remain distended but not tense. Gram stain is negative for any bacteria. No evidence of SBP. However repeat CT abdomen and pelvis showed evidence of large volume ascites. Patient initially refused to give consent for repeat paracentesis, although he later agreed but then after discussion with palliative he opted for comfort care He has been started on Dilaudid infusion and the rest of the medications have been discontinued. (3) Hypotension: Plan: Patient Comfort measures (4) Acute kidney failure: Plan: comfort measures only (5) Ureterolithiasis: Plan: Known left ureter stone. Urology consultation appreciated. No intervention at this time. (6) Liver cirrhosis: Plan: Patient is now strictly comfort care (7) Elevated INR: (8) Diabetes: Plan: comfort measures (9) Chronic lymphocytic leukemia of B-cell type in remission: Plan: comfort care now Plan After discussing with palliative, patient is now comfort measures only. Prognosis is poor Admission and Anticipated Discharge Date Admission Date: September 13, 2022 Subjective Patient still mildly responsive does not speak or is not verbal but does make eye contact intermittently uncomfortable receiving boluses of Dilaudid with continuous Dilaudid infusion Physical Exam Physical Exam: Patient appears comfortable on my exam, remain on comfort measures only. abdomen still exam is with massive ascites has commented on his previous CT scans Results & Data Results & Data Vital Signs (Past 12 Hours) Vital Signs O2 Del Method 09/23/22 07:32 Room Air PG Care Time/CCT Total # of Minutes Spent Total Time Spent with Patient: Total time spent is greater than 50% in coordination of care (as documented) at patient's floor/unit and/or counseling patient: Coding Level of Care Code 64841 SUB INP/OBS CARE 2/35MIN Diagnoses Comfort measures only status Z51.5 Abdominal ascites R18.8 Hypotension I95.9 Acute kidney failure N17.9 Ureterolithiasis N20.1 Liver cirrhosis K74.60 Elevated INR R79.1 Diabetes E11.9 Chronic lymphocytic leukemia of B-cell type in remission C91.11
[2022-09-24] MEDS: HYDROmorphone/NSS 100 MG/100 ML BAG IV SCH (11:25)
--- NOTE | 2022-09-24 17:12 | Hospitalist Progress Note ---
Date of Service September 24, 2022 Assessment & Plan (1) Comfort measures only status: Plan: Patient shiela on Dilaudid infusion for comfort measures only in the hospital is expected No new changes on 09/24/2022 (2) Abdominal ascites: Plan: Patient was admitted to the hospital from the presents on account of failure to thrive, abdominal distention US guided paracentesis completed on September 13, for both therapeutic and diagnostic purposes. 4 L of fluid were removed and he continues to remain distended but not tense. Gram stain is negative for any bacteria. No evidence of SBP. However repeat CT abdomen and pelvis showed evidence of large volume ascites. Patient initially refused to give consent for repeat paracentesis, although he later agreed but then after discussion with palliative he opted for comfort care He has been started on Dilaudid infusion and the rest of the medications have been discontinued. (3) Hypotension: Plan: Patient Comfort measures (4) Acute kidney failure: Plan: comfort measures only (5) Ureterolithiasis: Plan: Known left ureter stone. Urology consultation appreciated. No intervention at this time. (6) Liver cirrhosis: Plan: Patient is now strictly comfort care (7) Elevated INR: (8) Diabetes: Plan: comfort measures (9) Chronic lymphocytic leukemia of B-cell type in remission: Plan: comfort care now Plan After discussing with palliative, patient is now comfort measures only. Prognosis is poor Admission and Anticipated Discharge Date Admission Date: September 13, 2022 Subjective Patient still mildly responsive does not speak or is not verbal but does make eye contact intermittently No new changes on 09/24/2022 uncomfortable receiving boluses of Dilaudid with continuous Dilaudid infusion Physical Exam Physical Exam: Patient appears comfortable on my exam, remain on comfort measures only. abdomen still exam is with massive ascites has commented on his previous CT scans Results & Data Results & Data Vital Signs (Past 12 Hours) Vital Signs O2 Del Method 09/24/22 08:38 Room Air PG Care Time/CCT Total # of Minutes Spent Total Time Spent with Patient: Total time spent is greater than 50% in coordination of care (as documented) at patient's floor/unit and/or counseling patient: Coding Level of Care Code 28375 SUB INP/OBS CARE 1/25MIN Diagnoses Comfort measures only status Z51.5 Abdominal ascites R18.8 Hypotension I95.9 Acute kidney failure N17.9 Ureterolithiasis N20.1 Liver cirrhosis K74.60 Elevated INR R79.1 Diabetes E11.9 Chronic lymphocytic leukemia of B-cell type in remission C91.11
[2022-09-24] MEDS: HYDROmorphone BOLUS from BAG IV PRN (20:33)
[2022-09-25] MEDS: HYDROmorphone BOLUS from BAG IV PRN ×2 (04:59→14:14)
--- NOTE | 2022-09-25 08:14 | Hospitalist Progress Note ---
Date of Service September 25, 2022 Assessment & Plan (1) Comfort measures only status: Plan: Patient shiela on Dilaudid infusion for comfort measures only in the hospital is expected No new changes on 09/25/2022 but appears may be coming to the end. Decreased respirations, appearing comfortable on Dilaudid infusion at present (2) Abdominal ascites: Plan: Patient was admitted to the hospital from the presents on account of failure to thrive, abdominal distention US guided paracentesis completed on September 13, for both therapeutic and diagnostic purposes. 4 L of fluid were removed and he continues to remain distended but not tense. Gram stain is negative for any bacteria. No evidence of SBP. However repeat CT abdomen and pelvis showed evidence of large volume ascites. Patient initially refused to give consent for repeat paracentesis, although he later agreed but then after discussion with palliative he opted for comfort care He has been started on Dilaudid infusion and the rest of the medications have been discontinued. (3) Hypotension: Plan: Patient Comfort measures (4) Acute kidney failure: Plan: comfort measures only (5) Ureterolithiasis: Plan: Known left ureter stone. Urology consultation appreciated. No intervention at this time. (6) Liver cirrhosis: Plan: Patient is now strictly comfort care (7) Elevated INR: (8) Diabetes: Plan: comfort measures (9) Chronic lymphocytic leukemia of B-cell type in remission: Plan: comfort care now Plan After discussing with palliative, patient is now comfort measures only. Prognosis is poor anticipate passing in the hospital, possibly next 24-48 hours given exam today Admission and Anticipated Discharge Date Admission Date: September 13, 2022 Supervising Physician Co-Signing Physician Notes The patient was not seen by me. The chart was reviewed. Case discussed with LATRICIA Avery. Agree with assessment and plan Subjective eval this morning, stable. some agitation this morning but appearing comfortable. Shallow breathing/respirations decreased. Discussed w/ guards in room, has appeared comfortable since this morning. discussed anticipation in next 24-48 hours but hard to determine Physical Exam Physical Exam: Patient appears comfortable on my exam, remain on comfort measures only. mouth open, dry mm no acute distress/agitation abdomen still exam is with massive ascites as commented on his previous CT scans Results & Data Results & Data Vital Signs (Past 12 Hours) Vital Signs O2 Del Method 09/25/22 07:45 Room Air PG Care Time/CCT Total # of Minutes Spent Total Time Spent with Patient: Total time spent is greater than 50% in coordination of care (as documented) at patient's floor/unit and/or counseling patient: Coding Level of Care Code 03409 SUB INP/OBS CARE 03/13MIN Diagnoses Comfort measures only status Z51.5 Abdominal ascites R18.8 Hypotension I95.9 Acute kidney failure N17.9 Ureterolithiasis N20.1 Liver cirrhosis K74.60 Elevated INR R79.1 Diabetes E11.9 Chronic lymphocytic leukemia of B-cell type in remission C91.11
--- NOTE | 2022-09-25 14:03 | Palliative Care Progress Note ---
Date of Service September 25, 2022 Assessment & Plan (1) Abdominal pain: Plan: Ramiro is using a total of 31.8mg Dilaudid in past 24 hr which comes out to 1.325mg per hour, so I increased his continuous rate to what he is factoring out from daily use, to 1.3mg per hour. I have left bolus dose unchanged. I have updated nursing. (2) Dyspnea and respiratory abnormalities: Plan: intermittent resp pattern variation, reported/observed by guards. (3) Abdominal pain, generalized: (4) Back pain: (5) Weakness generalized: (6) Concern about end of life: (7) Palliative care by specialist: Plan * Patient w/terminal [facility]. he is moving to active dying process, BLE mottled to above knees, apneas to 5 sec. Anticipate dying within days. * If resp pattern becomes irreg please use combo of ativan and prn dilaudid to achieve comfort. * I have modified comfort care meds as noted above * I have updated guards x2, nursing and the primary team. * TS: 55min Thank you for allowing us to participate in the ongoing care of this patient. Please don't hesitate to call or page with any additional concerns. Dr. Gaby Huang DNP Director, Palliative Care Admission and Anticipated Discharge Date Admission Date: September 13, 2022 Subjective remains on STERILIZATION TECH resp pattern changing less crying out since rate change guards note he seems generally peaceful this morning mottling to BLE worsening Review of Systems Review of Systems: Unobtainable due to reduced consciousness Physical Exam Physical Exam: not responding to verbal, grimaces with abd palpation eyes are open/unfocused, dry appearing, occasional fluttering with exam oral mucosa dry unable to follow commands grimacing, moaning w/abd palpation resp effort slightly increased, intermittent apneas 3-5 sec, diminished throughout tachy s1s2, no gross JVD abd distended, TTP, diffuse discomfort with exam - +grimacing extremities cool/pale/dusky nailbeds +mottling BLE to above the knees wiht +2 edema, the shackle on LLE has been changed to a palstic/adjustable width shackle skin cool Results & Data Vital Signs (Past 12 Hours) Vital Signs O2 Del Method 09/25/22 07:45 Room Air Laboratory Results STERILIZATION TECH Diagnostic Findings STERILIZATION TECH PG Care Time/CCT Total # of Minutes Spent Total Time Spent: 55 Total Time Spent with Patient: Total time spent is greater than 50% in coordination of care (as documented) at patient's floor/unit and/or counseling patient: Coding Level of Care Code 54397 SUB INP/OBS CARE 3/50MIN History Comprehensive Exam Comprehensive Medical Decision Making High Complexity Diagnoses Abdominal pain R10.9 Dyspnea and respiratory abnormalities R06.00; R06.89 Abdominal pain, generalized R10.84 Back pain M54.9 Weakness generalized R53.1 Concern about end of life Z71.1 Palliative care by specialist Z51.5
--- NOTE | 2022-09-26 06:41 | Death Pronouncement Note ---
Date of Service September 26, 2022 Pronouncement Note Admission Date Admission Date: September 13, 2022 Date and Time of Date of : 09/26/22 Time of : 06:30 Contributing Factors (1) Abdominal pain: (2) Dyspnea and respiratory abnormalities: (3) Abdominal pain, generalized: (4) Back pain: (5) Weakness generalized: (6) Concern about end of life: (7) Palliative care by specialist: Additional Data Confirmation of : no pulse, no respirations, no heart sounds and pupils fixed and dilated Family: not available (patient is an inmate) Attending/PCP notified?: Yes Attending physician: Ángel Carranza MD Was code activated?: No (DNR/DNI, comfort measures) Resident Activity Tracking Resident Involvement: Resident Care Provided Care Provided: Adult Hospital Medicine
--- NOTE | 2022-09-26 06:42 | Communication Note ---
Date of Service: September 26, 2022 I was called to pronounce the of Ramiro Francois ( 1960) by Annetta Salgado on 09/26/2022. Upon entering the room, patient was found to be in a terminal state. They were unresponsive to, and did not withdraw from verbal or tactile stimuli. They were unresponsive to corneal, pupillary, and oculocephalic reflexes. On cardiopulmonary exam, they were found to be without detectable carotid pulses, and without spontaneous heart tones or respirations. Time of was pronounced by me on 09/26/22 at 0630. Attending physician was notified. Patient is an inmate. Resident Activity Tracking Resident Involvement: Resident Care Provided Care Provided: Adult Hospital Medicine
--- NOTE | 2022-09-26 07:56 | Discharge Summary ---
Date of Service September 26, 2022 Admission HPI Per Admitting Provider Ramiro Francois is a 62 year old male who presents to the ER from [facility] via EMS with chest, abdominal and back pain with associated shortness of breath. Very difficult to get a clear history from the patient. He describes the pain as 10/10 severity and repeatedly asking for pain medication. Cannot give me any timeline for his symptoms. Previously not wanting treatment. He denies a history of liver cirrhosis but when I ask him what is causing the fluid in his abdomen, he tells me ascites. When I ask him what is causing the ascites he tells me liver cirrhosis. He has a longstanding history of wanting to be full code but also refusing all treatment and investigations. He reports on this occasion being willing to undergo paracentesis to help him with the pain. He repeatedly asks to be put to sleep for this procedure and when I refuse and tell him there is no reason to do this and this is not something we do he asks me again 5 minutes later. I offered to give him pain medication prior to the procedure for which he is now agreeable. He denies any urinary symptoms. Unknown duration for shortness of breath, reports difficulty taking a deep breath, no change in position. No chest pain. Also notes dysphagia without odynophagia. On discussion with [facility] RN they report trying to get him to the hospital for some time but he has been refusing. Progressive worsening pain and his shortness of breath led him to come to the ER today. Back pain is possibly new. Admission Exam Per Admitting Provider Constitutional: well developed; + not well nourished and no acute distress Eyes: PERRL, conjunctivae normal, anicteric sclerae Respiratory: + tachypneic; + abnormal respiratory effort (poor) Auscultation: lungs clear to auscultation bilaterally; breath sounds present, no diminished lung sounds, no crackles, no rales, no rhonchi and no wheezes Cardiovascular: RRR, no murmur, no edema Gastrointestinal (Abdomen): Inspection/Auscultation: + abdomen distended and normal bowel sounds Percussion/Palpation: + abdomen tender (generalized, mild) and abdomen soft; no guarding and abdomen not rigid Skin: + jaundice Neurologic: moves all extremities and awake; not confused Psychiatric: A+Ox3, euthymic affect Insight: + poor insight Genitourinary: no CVA tenderness Principal Diagnosis End stage liver disease, cirrhosis Discharge Exam unresponsive to verbal stimuli or tactile stimuli pupils fixed/dilated absent heart sounds, pulse or respirations mottled appearance to skin Discharge Data Allergies Allergy/AdvReac Type Severity Reaction Status Date / Time Gadolinium-Containing Allergy Unknown Patient Verified 09/13/22 12:47 Contrast Medi unsure of reaction but recalls being treated. Iodinated Contrast Media Allergy Unknown Patient Verified 09/13/22 12:47 unsure of reaction but recalls being treated. Consultations 09/13/22 11:53 ED Decision to Admit Stat 09/13/22 12:00 Consult Urology Routine 09/16/22 10:59 Consult Palliative Care Routine 09/16/22 14:51 Consult Psychiatry Routine Ordered Studies Chest X-Ray 09/13/22 09:20 XR chest 1V portable HISTORY: Chest pain, nonspecific COMPARISON: Chest 07/13/2022. FINDINGS: There are low lung volumes. No pneumothorax. The cardiac silhouette remains mildly enlarged. No evidence for pulmonary edema. The upper lung zones remain clear. Bibasilar linear densities favor subsegmental atelectasis. No significant pleural effusions. Old, healed right clavicle fracture. IMPRESSION: 1. No significant change compared to the prior study. 2. Low lung volumes with bibasilar linear densities. This favors subsegmental atelectasis. A pneumonia could also have a similar appearance in the appropriate clinical setting. ACT 112: Negative or not required by law. Electronically signed by: Rick Finley M.D. 09/13/2022 10:30 AM Abdomen/Pelvis CT 09/13/22 09:[address] WITHOUT CONTRAST CT DOSE: 1380.67 mGy.cm HISTORY: Acute generalized abdominal pain with distention abd pain, ascites, IV contrast allx TECHNIQUE: Multiaxial CT images of the abdomen and pelvis were performed without contrast. A dose lowering technique was utilized adhering to the principles of ALARA. COMPARISON STUDY: 07/14/2016 FINDINGS: Limited exam without the use of contrast. Coronary artery calcifications. Small pericardial effusion. [id number]-az-[id number] pleural effusions with dependent bibasilar consolidation. Mild right hemidiaphragmatic elevation. No pneumatosis or pneumoperitoneum identified. The unenhanced spleen is mildly enlarged at 14 cm. Moderately atrophic pancreas. Unremarkable adrenal glands. Cholelithiasis with a 3 cm gallstone. Contracted gallbladder. No biliary ductal dilation. Cirrhotic liver with progressive atrophy compared to the prior study. No hepatic mass identified. There are greater than 6 nonobstructing calculi of the right kidney measuring up to 6 mm. Mild right-sided pelvocaliectasis without lizzette hydronephrosis or ureteral calculi. Punctate nonobstructing calculi in the mid to inferior pole left kidney. Cortical thinning of the kidneys with mild probable scarring in the superior pole right kidney. Moderate to severe left-sided hydroureteronephrosis secondary to a 1.2 cm calculus within the proximal left ureter at the level of L3-L4. Chronic capsular calcifications within the mid inferior pole left kidney with adjacent retroperitoneal scarring resulting in posterior medial retraction of the left ureter. Prostatomegaly. Unremarkable urinary bladder with suggestion of chronic outlet obstruction. Atherosclerosis of the aorta. Anasarca with large volume of abdominal pelvic ascites. Abdominal varicosities. Mild distal esophageal wall thickening with paraesophageal varicosities. Specific borderline enlarged periportal-hepatic lymph nodes including a 1.3 cm periportal 49. Findings may be secondary to chronic liver disease. Colonic diverticulosis. Normal appendix. Unremarkable soft tissues. No acute fracture. IMPRESSION: 1. Moderate to severe left-sided hydroureteronephrosis secondary to an obstructing 1.2 cm calculus of the upper to mid left ureter. 2. No bowel obstruction or bowel wall thickening. 3. Cirrhosis with stigmata of portal venous hypertension including large volume of abdominopelvic ascites, mild splenomegaly with abdominal varicosities. 4. [id number] layering pleural effusions with small pericardial effusion and anasarca. 5. Colonic diverticulosis. 6. Cholelithiasis. 7. Bilateral nephrolithiasis. ACT 112: Negative or not required by law. The above report was generated using voice recognition software. It may contain grammatical, syntax or spelling errors. Electronically signed by: Dae Eli M.D. 09/13/2022 11:18 AM Paracentesis Ultrasound 09/13/22 11:59 ULTRASOUND-GUIDED THERAPEUTIC PARACENTESIS: HISTORY: Ascites. Procedure: The procedure and its risks, benefits and alternatives were discussed with the patient and written informed consent was obtained. Preliminary ultrasound of the abdomen was performed to determine a safe needle entry site. The right lower quadrant was prepped and draped in the usual sterile fashion. 1% Lidocaine was used for local anesthesia. A paracentesis needle-sheath was inserted into the peritoneal space using ultrasound guidance. The needle was removed and the sheath was connected to tubing and a vacuum suction device. A total of 4 liters of yellow ascites was aspirated. The sheath was removed and a sterile dressing applied. The patient tolerated the procedure well and there were no immediate complications. IMPRESSION: Ultrasound-guided therapeutic paracentesis with aspiration of 4 liters of ascites. ACT 112: Negative or not required by law. Electronically signed by: Rick Finley M.D. 09/13/2022 3:21 PM Chest X-Ray 09/15/22 09:04 XR chest 1V portable HISTORY: hypoxia COMPARISON: Chest 09/13/2022. FINDINGS: No pneumothorax. Small bilateral pleural effusions and patchy bibasilar densities have slightly progressed. The heart remains mildly enlarged. No evidence for pulmonary edema. The upper lung zones are clear. There are low lung volumes. IMPRESSION: Small bilateral pleural effusions and patchy bibasilar densities have slightly progressed. ACT 112: Negative or not required by law. Electronically signed by: Rick Finley M.D. 09/15/2022 9:32 AM Abdomen/Pelvis CT 09/16/22 19:03 Exam(s): CT ABDOMEN + PELVIS Without Contrast EXAM: CT Abdomen and Pelvis Without Intravenous Contrast CLINICAL HISTORY: Reason for exam: Increased ascites. TECHNIQUE: Axial computed tomography images of the abdomen and pelvis without intravenous contrast. CTDI is 49 mGy and DLP is 2720.6 mGy-cm. Automated exposure control was utilized for the study. A dose lowering technique was utilized adhering to the principles of ALARA. COMPARISON: No relevant prior studies available. FINDINGS: Lung bases: Airspace consolidation at the lung bases, correlate for mild pneumonia. Moderate bilateral pleural effusions. ABDOMEN: Liver: Unremarkable. Gallbladder and bile ducts: Large gallstone in the gallbladder. Pancreas: Unremarkable. No ductal dilation. Spleen: Unremarkable. No splenomegaly. Adrenals: Unremarkable. No mass. Kidneys and ureters: Bilateral nonobstructing renal calculi. Severe hydronephrosis of the LEFT kidney, without significant hydroureter. No definite obstructing stone however, evaluation is limited. Stomach and bowel: Wall thickening of small bowel, correlate for spontaneous bacterial peritonitis. Diverticulosis, without acute diverticulitis. No small bowel obstruction. No free intraperitoneal air. PELVIS: Appendix: No findings to suggest acute appendicitis. Bladder: Unremarkable. No stones. Reproductive: Unremarkable as visualized. ABDOMEN and PELVIS: Intraperitoneal space: Large volume abdominal and pelvic ascites. No free air. Bones/joints: Degenerative changes of the spine. No acute fracture. No dislocation. Soft tissues: Anasarca. Vasculature: Atherosclerotic changes of the aorta. No abdominal aortic aneurysm. Lymph nodes: Unremarkable. No enlarged lymph nodes. Tubes, lines and devices: Rectal catheter. IMPRESSION: 1. Airspace consolidation at the lung bases, correlate for mild pneumonia. Moderate bilateral pleural effusions. 2. Large volume abdominal and pelvic ascites. 3. Bilateral nonobstructing renal calculi. Severe hydronephrosis of the LEFT kidney, without significant hydroureter. No definite obstructing stone however, evaluation is limited. 4. Wall thickening of small bowel, correlate for spontaneous bacterial peritonitis. 5. Diverticulosis, without acute diverticulitis. No small bowel obstruction. No free intraperitoneal air. Electronically signed by: Sheldon Burch MD 09/16/22 20:[address] 09/16/22 22:10 Exam(s): CT HEAD Without Contrast EXAM: CT Head Without Intravenous Contrast CLINICAL HISTORY: Reason for exam: r/o stroke or bleed. TECHNIQUE: Axial computed tomography images of the head/brain without intravenous contrast. CTDI is 36.55 mGy and DLP is 624.11 mGy-cm. Automated exposure control was utilized for the study. A dose lowering technique was utilized adhering to the principles of ALARA. COMPARISON: No relevant prior studies available. FINDINGS: No acute intracranial hemorrhage. No midline shift or mass effect. The territorial sethi-white matter differentiation is maintained throughout. Age-related cerebral volume loss. Periventricular and subcortical white matter hypoattenuation, consistent with chronic microangiopathy. The visualized orbits appear grossly unremarkable. The calvarium is intact. The visualized paranasal sinuses and mastoid air cells are grossly clear. IMPRESSION: No acute intracranial hemorrhage, midline shift, or mass effect. Electronically signed by: Sheldon Burch MD 09/16/22 23:45 PM Diabetes Follow up Diabetes Follow-up Needed for HgbA1c >9% Hospital Course (1) End stage liver disease: Patient was admitted to the hospital from the [facility] on account of failure to thrive, end stage liver disease, abdominal distention requiring paracentesis for 4L with continued distension. Gram stain negative/no evidence for SBP CTAP on repeat w/ large volume ascites however patient refused although later agreed but after discussion w/ palliative opted for comfort care and was placed on Dilaudid infusion and made comfort measures only. Appearing comfortable AM 8/9, no agitation but decreased respiration and expectant passing in next 24 hours. Patient ceased to breath at 6:30am. 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 Urology consultation while inpatient without intervention planned (7) Liver cirrhosis: On imaging, w/ ascites. end stage, palliaive/comfort as above (8) Elevated INR: 2nd to end stage liver disease (9) Diabetes: comfort measures (10) Chronic lymphocytic leukemia of B-cell type in remission: noted, followed w/ heme/onc, in remission most recently Total Time Total Time Spent Total Time Spent (In Minutes): 35 Discharge Plan Discharge Items Patient Disposition: Other Date/Time: 09/26/22 06:30 Supervising Physician Co-Signing Physician Notes The patient during the roll wrapper hours of September 26. Coding Level of Care Code 91535 INP/OBS DISCH >30 MIN Diagnoses End stage liver disease K72.10 Abdominal ascites R18.8 Comfort measures only status Z51.5 Hypotension I95.9 Acute kidney failure N17.9 Ureterolithiasis N20.1 Liver cirrhosis K74.60 Elevated INR R79.1 Diabetes E11.9 Chronic lymphocytic leukemia of B-cell type in remission C91.11
== END 2022-09-26 09:00 | disposition expired | DRG 441 ==
LOC: ED 09:18 → SUATTDRO 12:53 → 2E 12:53 → 3W 09-19 09:19